=== PATIENT | female | born 1990 | race Caucasian/White ===

== ENCOUNTER 2017-02-08 19:18 | Emergency (ER) | payer OTHER ==
[2017-02-08] MEDS ORDERED: SODIUM CHLORIDE 0.9% 500 ML IV STA (19:22)
--- NOTE | 2017-02-08 19:32 | ED ---
General Adult HPI - General Stated complaint: palpatation/has pacemaker Time Seen by Provider: 02/08/17 19:22 Source: RN notes reviewed, old records reviewed - History of Present Illness Initial comments: This is a 26-year-old female here for evaluation probable arrhythmia. Palpitations heart beating in her chest dizzy. Patient states symptoms have been earlier today similar symptoms she sustained the cause her to get pacemaker in the first place. Patient is tender denies chest pain or shortness of breath since complaint of palpitations have resolved - Related Data Home Medications Medication Instructions Recorded Confirmed Etonogestrel/Ethinyl Estradiol 1 ring VAGINAL Q28D 02/08/17 02/08/17 [Nuvaring Vaginal Ring] LORazepam [Ativan] 0.25 - 0.5 mg PO DAILY PRN 02/08/17 02/08/17 Allergies Allergy/AdvReac Type Severity Reaction Status Date / Time Beta-Blockers AdvReac Dyspnea/Increased Verified 02/08/17 20:20 (Beta-Adrenergic Bloc Heart Rate/Fatigue oxycodone [From Percocet] AdvReac AGITATION Verified 02/08/17 20:19 varenicline [From Chantix] AdvReac AGITATION/A Verified 02/08/17 20:19 GGRESSION Review of Systems ROS Statement: Those systems with pertinent positive or pertinent negative responses have been documented in the HPI. ROS Other: All systems not noted in ROS Statement are negative. Past Medical History Past Medical History: Asthma Additional Past Medical History / Comment(s): Herpes Genitalis. Obstetric history:First was vaginal delivery in 2012. This is her second . She has had care with pr since 11 weeks. A+, abs neg, HIV NR , Hep B neg, RPR NR. She had an US at 28 weeks that showed <3%ile and so she was followed by [facility] for IUGR. BPPs weekly and NSTs twice weekly with frequent growth USs. LAst US showed 15%ile. GBS neg. History of Any Multi-Drug Resistant Organisms: None Reported Past Surgical History: No Surgical Hx Reported Past Anesthesia/Blood Transfusion Reactions: No Reported Reaction Past Psychological History: Anxiety, Bipolar, Depression Smoking Status: Current every day smoker Past Alcohol Use History: None Reported Past Drug Use History: None Reported Additional Drug Use History / Comment(s): pt refused how to quit packet - Past Family History Mother Family Medical History: No Reported History General Exam General appearance: alert, in no apparent distress Head exam: Present: atraumatic, normocephalic, normal inspection Eye exam: Present: normal appearance, PERRL, EOMI. Absent: scleral icterus, conjunctival injection, periorbital swelling ENT exam: Present: normal exam, mucous membranes moist Neck exam: Present: normal inspection. Absent: tenderness, meningismus, lymphadenopathy Respiratory exam: Present: normal lung sounds bilaterally. Absent: respiratory distress, wheezes, rales, rhonchi, stridor Cardiovascular Exam: Present: regular rate, normal rhythm, normal heart sounds. Absent: systolic murmur, diastolic murmur, rubs, gallop, clicks GI/Abdominal exam: Present: soft, normal bowel sounds. Absent: distended, tenderness, guarding, rebound, rigid Extremities exam: Present: normal inspection, full ROM, normal capillary refill. Absent: tenderness, pedal edema, joint swelling, calf tenderness Back exam: Present: normal inspection Neurological exam: Present: alert, oriented X3, CN II-XII intact Psychiatric exam: Present: normal affect, normal mood Skin exam: Present: warm, dry, intact, normal color. Absent: rash Course Vital Signs 02/08/17 02/08/17 19:29 20:26 Temperature 97.5 F L Pulse Rate 85 75 Respiratory 18 18 Rate Blood Pressure 139/69 115/65 O2 Sat by Pulse 100 98 Oximetry - Reevaluation(s) Reevaluation #1: 02/08/17 21:10 [address] with interrogation for [facility], unable is interrogate pacemaker tonight Reevaluation #2: 02/08/17 21:10 Spoke with cardiology, will not see patient here tonight, will make appointment for tomorrow in office Reevaluation #3: 02/08/17 21:10 Patient refusing to stay in hospital at this time EKG Findings - EKG Comments: EKG Findings:: EKG shows normal sinus rhythm rate of 89, GA 124, QRS 72, QTC 411 Medical Decision Making - Medical Decision Making 26 female here for evaluation. Patient refuses stating hospital for evaluation of pacer. Patient will see in follow-up with cardiology in the near future - Lab Data Result diagrams: 02/08/17 19:45 02/08/17 19:45 Lab Results 04/02/08/17 02/08/17 Range/Units 19:45 19:45 19:45 WBC 9.1 (3.8-10.6) k/uL RBC 5.02 (3.80-5.40) m/uL Hgb 15.7 (11.4-16.0) gm/dL Hct 45.1 (34.0-46.0) % MCV 89.9 (80.0-100.0) fL MCH 31.2 (25.0-35.0) pg MCHC 34.8 (31.0-37.0) g/dL RDW 13.2 (11.5-15.5) % Plt Count 220 (150-450) k/uL Neutrophils % 54 % Lymphocytes % 39 % Monocytes % 5 % Eosinophils % 1 % Basophils % 0 % Neutrophils # 4.9 (1.3-7.7) k/uL Lymphocytes # 3.5 (1.0-4.8) k/uL Monocytes # 0.5 (0-1.0) k/uL Eosinophils # 0.1 (0-0.7) k/uL Basophils # 0.0 (0-0.2) k/uL Sodium 144 (137-145) mmol/L Potassium 3.8 (3.5-5.1) mmol/L Chloride 107 (98-107) mmol/L Carbon Dioxide 26 (22-30) mmol/L Anion Gap 11 mmol/L BUN 17 (7-17) mg/dL Creatinine 0.84 (0.52-1.04) mg/dL Est GFR (MDRD) Af Amer >60 (>60 ml/min/1.73 sqM) Est GFR (MDRD) Non-Af >60 (>60 ml/min/1.73 sqM) Glucose 97 (74-99) mg/dL Calcium 9.9 (8.4-10.2) mg/dL Phosphorus 3.6 (2.5-4.5) mg/dL Magnesium 2.1 (1.6-2.3) mg/dL Total Bilirubin 1.6 H (0.2-1.3) mg/dL AST 24 (14-36) U/L ALT 27 (9-52) U/L Alkaline Phosphatase 66 (38-126) U/L Total Creatine Kinase 60 (30-135) U/L CK-MB (CK-2) 0.3 (0.0-2.4) ng/mL CK-MB (CK-2) Rel Index 0.5 Troponin I <0.012 (0.000-0.034) ng/mL Total Protein 8.6 H (6.3-8.2) g/dL Albumin 5.1 H (3.5-5.0) g/dL Urine Color Urine Appearance (Clear) Urine pH (5.0-8.0) Ur Specific [place] (1.001-1.035) Urine Protein (Negative) Urine Glucose (UA) (Negative) Urine Ketones (Negative) Urine Blood (Negative) Urine Nitrite (Negative) Urine Bilirubin (Negative) Urine Urobilinogen (<2.0) mg/dL Ur Leukocyte Esterase (Negative) Urine HCG, Qual (Not Detectd) 02/08/17 02/08/17 Range/Units 19:45 19:45 WBC (3.8-10.6) k/uL RBC (3.80-5.40) m/uL Hgb (11.4-16.0) gm/dL Hct (34.0-46.0) % MCV (80.0-100.0) fL MCH (25.0-35.0) pg MCHC (31.0-37.0) g/dL RDW (11.5-15.5) % Plt Count (150-450) k/uL Neutrophils % % Lymphocytes % % Monocytes % % Eosinophils % % Basophils % % Neutrophils # (1.3-7.7) k/uL Lymphocytes # (1.0-4.8) k/uL Monocytes # (0-1.0) k/uL Eosinophils # (0-0.7) k/uL Basophils # (0-0.2) k/uL Sodium (137-145) mmol/L Potassium (3.5-5.1) mmol/L Chloride (98-107) mmol/L Carbon Dioxide (22-30) mmol/L Anion Gap mmol/L BUN (7-17) mg/dL Creatinine (0.52-1.04) mg/dL Est GFR (MDRD) Af Amer (>60 ml/min/1.73 sqM) Est GFR (MDRD) Non-Af (>60 ml/min/1.73 sqM) Glucose (74-99) mg/dL Calcium (8.4-10.2) mg/dL Phosphorus (2.5-4.5) mg/dL Magnesium (1.6-2.3) mg/dL Total Bilirubin (0.2-1.3) mg/dL AST (14-36) U/L ALT (9-52) U/L Alkaline Phosphatase (38-126) U/L Total Creatine Kinase (30-135) U/L CK-MB (CK-2) (0.0-2.4) ng/mL CK-MB (CK-2) Rel Index Troponin I (0.000-0.034) ng/mL Total Protein (6.3-8.2) g/dL Albumin (3.5-5.0) g/dL Urine Color Yellow Urine Appearance Clear (Clear) Urine pH 7.0 (5.0-8.0) Ur Specific [place] 1.019 (1.001-1.035) Urine Protein Negative (Negative) Urine Glucose (UA) Negative (Negative) Urine Ketones Negative (Negative) Urine Blood Negative (Negative) Urine Nitrite Negative (Negative) Urine Bilirubin Negative (Negative) Urine Urobilinogen 2.0 (<2.0) mg/dL Ur Leukocyte Esterase Negative (Negative) Urine HCG, Qual Not Detected (Not Detectd) Disposition Clinical Impression: Palpitations Disposition: HOME SELF-CARE Condition: Good Instructions: Palpitations (ED) Referrals: Geoff Albert III, MD [Primary Care Provider] - 1-2 days
[2017-02-08 19:34] VITALS: RESP 18
[2017-02-08 19:59] LABS: Basophils % (A) 0 %; CH 31.2; CHCM 34.9; Eosinophils # (A) 0.1 k/uL (0-0.7); Eosinophils % (A) 1 %; HCT 45.1 % (34.0-46.0); HDW 2.69; HGB 15.7 gm/dL (11.4-16.0); Luc # (Auto) 0.16; Luc % (Auto) 2; Lymphocytes # (A) 3.5 k/uL (1.0-4.8); Lymphocytes % (A) 39 %; MCH 31.2 pg (25.0-35.0); MCHC 34.8 g/dL (31.0-37.0); MCV 89.9 fL (80.0-100.0); Mean Platelet Volume 7.7; Monocytes # (A) 0.5 k/uL (0-1.0); Monocytes % (A) 5 %; Neutrophils # (A) 4.9 k/uL (1.3-7.7); Neutrophils % (A) 54 %; RBC 5.02 m/uL (3.80-5.40); RDW 13.2 % (11.5-15.5); WBC 9.1 k/uL (3.8-10.6); WBC (Perox) 9.06
[2017-02-08 20:09] LABS: ALT 27 U/L (9-52); AST 24 U/L (14-36); Alkaline Phosphatase 66 U/L (38-126); Anion Gap 11 mmol/L; Blood Urea Nitrogen 17 mg/dL (7-17); Calcium 9.9 mg/dL (8.4-10.2); Carbon Dioxide 26 mmol/L (22-30); Chloride 107 mmol/L (98-107); Glucose 97 mg/dL (74-99); Magnesium 2.1 mg/dL (1.6-2.3); Non-African American GFR(MDRD) >60 (>60 ml/min/1.73 sqM); Phosphorous 3.6 mg/dL (2.5-4.5); Potassium 3.8 mmol/L (3.5-5.1); Sodium 144 mmol/L (137-145); Total Bilirubin 1.6 mg/dL (0.2-1.3); Total Protein 8.6 g/dL (6.3-8.2)
[2017-02-08 20:11] LABS: Appearance,Urine Clear (Clear); Bilirubin,Urine Negative (Negative); Glucose,Urine (UA) Negative (Negative); Ketones,Urine Negative (Negative); Leukocyte Esterase,Urine Negative (Negative); Nitrite,Urine Negative (Negative); Protein,Urine Negative (Negative); Specific Gravity,Urine 1.019 (1.001-1.035); UA Billing (MACRO vs. MICRO) CHEM
[2017-02-08 20:16] LABS: Creatine Kinase 60 U/L (30-135)
[2017-02-08 20:27] LABS: Creatine Kinase MB 0.3 ng/mL (0.0-2.4); Troponin I <0.012 ng/mL (0.000-0.034)
[2017-02-08 21:27] VITALS: BP 125/81; PULSE 67; TEMP 97.4
== END 2017-02-08 21:25 | disposition home or self-care (01) ==
LOC: EC 19:18
DX: R00.2 Palpitations (principal); R42 Dizziness and giddiness; F17.210 Nicotine dependence, cigarettes, uncomplicated; Z95.0 Presence of cardiac pacemaker; Z79.3 Long term (current) use of hormonal contraceptives; Z88.8 Allergy status to other drugs, medicaments and biological substances
CPT/HCPCS: 36415; 80053; 81003; 81025; 82550; 82553; 83735; 84100; 84484; 85025; 87086; 93005; 99285

== ENCOUNTER → 2017-05-10 | Outpatient (CLI) | payer OTHER ==
--- NOTE | 2017-05-10 10:27 | USB ---
Reason for exam: clinical finding. Indicated problem(s): palpable abnormality and pain in the left breast. Physical Findings: Nurse Summary: x 5 palpable, painful areas, patient and physician felt areas (nurse kp). US Breast BILAT Right breast ultrasound includes all four quadrants, the retroareolar region and axilla. Finding demonstrate no cystic or solid lesion seen. Left breast ultrasound includes all four quadrants, the retroareolar region and axilla. Finding demonstrate no cystic or solid lesion seen. These results were verbally communicated with the patient and result sheet given to the patient on 05/10/17. ASSESSMENT: Negative, BI-RAD 1 RECOMMENDATION: Routine screening mammogram of both breasts at age 42. Manage patient on a clinical basis.
== END | disposition home or self-care (01) ==
LOC: RADUSWWP 09:02
PROVIDERS: ATTEND Family Medicine
DX: N63 Unspecified lump in breast (principal); N64.4 Mastodynia

== ENCOUNTER 2017-11-13 15:11 | Emergency (ER) | payer OTHER ==
[2017-11-13] MEDS ORDERED: SODIUM CHLORIDE 0.9% 1,000 ML IV STA (15:45)
[2017-11-13] MEDS ORDERED: SODIUM CHLORIDE 0.9% 500 ML IV STA ×2 (15:45→16:41)
--- NOTE | 2017-11-13 15:49 | ED ---
Arrhythmia/Palpitations HPI - General Chief Complaint: Arrhythmia/Palpitations Stated Complaint: SOB/high heart rate-sent by Time Seen by Provider: 11/13/17 15:23 Source: patient, RN notes reviewed Mode of arrival: ambulatory Limitations: no limitations - History of Present Illness Initial Comments: This is a 27-year-old female history of asthma pacemaker bipolar disorder with anxiety and is a smoker who states she had the onset of shortness of breath and tachycardia for the past week. It was worse today. He states she's had decreased appetite over last couple days. She also is had a cough for last 2 weeks which is getting better she is certainly azithromycin but only took it for a day or 2 and she had difficulty swallowing the pills. She denies any chest pain she has a cough no phlegm no fevers chills or sweats she does state he has at times pain to her mid back but has not right now. MD Complaint: rapid heart beat - Related Data Home Medications Medication Instructions Recorded Confirmed LORazepam [Ativan] 0.5 mg PO TID PRN 02/08/17 11/13/17 Divalproex [Depakote] 250 mg PO DAILY 11/13/17 11/13/17 Divalproex [Depakote] 500 mg PO HS 11/13/17 11/13/17 Fludrocortisone [Florinef] 0.1 mg PO BID 11/13/17 11/13/17 buPROPion XL [Wellbutrin Xl] 300 mg PO DAILY 11/13/17 11/13/17 Allergies Allergy/AdvReac Type Severity Reaction Status Date / Time Beta-Blockers AdvReac Dyspnea/Increased Verified 11/13/17 16:11 (Beta-Adrenergic Bloc Heart Rate/Fatigue oxycodone [From Percocet] AdvReac AGITATION Verified 11/13/17 16:11 varenicline [From Chantix] AdvReac AGITATION/A Verified 11/13/17 16:11 GGRESSION Review of Systems ROS Statement: Those systems with pertinent positive or pertinent negative responses have been documented in the HPI. ROS Other: All systems not noted in ROS Statement are negative. Past Medical History Past Medical History: Asthma Additional Past Medical History / Comment(s): Herpes Genitalis. Obstetric history:First was vaginal delivery in 2012. This is her second . She has had care with me since 11 weeks. A+, abs neg, HIV NR , Hep B neg, RPR NR. She had an US at 28 weeks that showed <3%ile and so she was followed by [facility] for IUGR. BPPs weekly and NSTs twice weekly with frequent growth USs. LAst US showed 15%ile. GBS neg. History of Any Multi-Drug Resistant Organisms: None Reported Past Surgical History: Pacemaker Past Anesthesia/Blood Transfusion Reactions: No Reported Reaction Past Psychological History: Anxiety, Bipolar, Depression Smoking Status: Current every day smoker Past Alcohol Use History: None Reported Past Drug Use History: None Reported - Past Family History Mother Family Medical History: No Reported History General Exam - General Exam Comments Initial Comments: This is a well-developed well-nourished awake alert oriented 3 female Limitations: no limitations General appearance: alert, anxious Head exam: Present: atraumatic, normocephalic, normal inspection Eye exam: Present: normal appearance, PERRL, EOMI. Absent: scleral icterus, conjunctival injection, periorbital swelling ENT exam: Present: mucous membranes dry Neck exam: Present: normal inspection. Absent: tenderness, meningismus, lymphadenopathy Respiratory exam: Present: normal lung sounds bilaterally. Absent: respiratory distress, wheezes, rales, rhonchi, stridor Cardiovascular Exam: Present: normal rhythm, tachycardia, normal heart sounds. Absent: systolic murmur, diastolic murmur, rubs, gallop, clicks GI/Abdominal exam: Present: soft, normal bowel sounds. Absent: distended, tenderness, guarding, rebound, rigid Extremities exam: Present: normal inspection, full ROM, normal capillary refill. Absent: tenderness, pedal edema, joint swelling, calf tenderness Back exam: Present: normal inspection, full ROM. Absent: tenderness, CVA tenderness (R), CVA tenderness (L), muscle spasm, paraspinal tenderness, vertebral tenderness Neurological exam: Present: alert, oriented X3, CN II-XII intact Psychiatric exam: Present: normal affect, normal mood Skin exam: Present: warm, dry, intact, normal color. Absent: rash Course Vital Signs 11/13/17 11/13/17 15:14 16:54 Temperature 98.9 F Pulse Rate 145 H 107 H Respiratory 22 16 Rate Blood Pressure 162/93 125/68 O2 Sat by Pulse 97 97 Oximetry - Reevaluation(s) Reevaluation #1: 01/23/18 17:01 I did discuss smoking cessation with the patient discussing risks factors associated with smoking and benefits of stopping. This conversation lasted 3.1 minutes total 11/13/17 17:02 EKG Findings - EKG Results: EKG: interpreted by AZIZA, sinus rhythm (Sinus tachycardia rate of 128. Interval 138 QRS duration 82 QT since QTC at 294/429 by atrial enlargement no acute ST-T wave changes) Medical Decision Making - Medical Decision Making Reevaluation patient finds the patient heart rate is improved greatly after IV fluids. Patient is feeling much improved at this time. Lab values are all within reasonably normal limits. Valproic acid level is within therapeutic limits. Discussion with the patient she'll be discharged she is a follow-up with her doctor and return when necessary - Lab Data Result diagrams: 11/13/17 15:48 11/13/17 15:48 Lab Results 11/13/17 11/13/17 11/13/17 Range/Units 15:48 15:48 15:48 WBC 6.4 (3.8-10.6) k/uL RBC 4.92 (3.80-5.40) m/uL Hgb 15.1 (11.4-16.0) gm/dL Hct 43.9 (34.0-46.0) % MCV 89.2 (80.0-100.0) fL MCH 30.6 (25.0-35.0) pg MCHC 34.4 (31.0-37.0) g/dL RDW 12.1 (11.5-15.5) % Plt Count 173 (150-450) k/uL Neutrophils % 51 % Lymphocytes % 41 % Monocytes % 5 % Eosinophils % 0 % Basophils % 0 % Neutrophils # 3.3 (1.3-7.7) k/uL Lymphocytes # 2.6 (1.0-4.8) k/uL Monocytes # 0.3 (0-1.0) k/uL Eosinophils # 0.0 (0-0.7) k/uL Basophils # 0.0 (0-0.2) k/uL PT (9.0-12.0) sec INR (<1.2) APTT (22.0-30.0) sec D-Dimer (<0.60) mg/L FEU Sodium 143 (137-145) mmol/L Potassium 4.3 (3.5-5.1) mmol/L Chloride 108 H (98-107) mmol/L Carbon Dioxide 23 (22-30) mmol/L Anion Gap 12 mmol/L BUN 11 (7-17) mg/dL Creatinine 0.92 (0.52-1.04) mg/dL Est GFR (MDRD) Af Amer >60 (>60 ml/min/1.73 sqM) Est GFR (MDRD) Non-Af >60 (>60 ml/min/1.73 sqM) Glucose 80 (74-99) mg/dL Calcium 9.6 (8.4-10.2) mg/dL Magnesium 2.0 (1.6-2.3) mg/dL Total Bilirubin 0.7 (0.2-1.3) mg/dL AST 20 (14-36) U/L ALT 22 (9-52) U/L Alkaline Phosphatase 59 (38-126) U/L Total Creatine Kinase 58 (30-135) U/L CK-MB (CK-2) <0.2 (0.0-2.4) ng/mL CK-MB (CK-2) Rel Index Troponin I <0.012 (0.000-0.034) ng/mL Total Protein 7.0 (6.3-8.2) g/dL Albumin 4.5 (3.5-5.0) g/dL TSH 0.924 (0.465-4.680) mIU/L Valproic Acid ug/mL 11/13/17 11/13/17 Range/Units 15:48 15:48 WBC (3.8-10.6) k/uL RBC (3.80-5.40) m/uL Hgb (11.4-16.0) gm/dL Hct (34.0-46.0) % MCV (80.0-100.0) fL MCH (25.0-35.0) pg MCHC (31.0-37.0) g/dL RDW (11.5-15.5) % Plt Count (150-450) k/uL Neutrophils % % Lymphocytes % % Monocytes % % Eosinophils % % Basophils % % Neutrophils # (1.3-7.7) k/uL Lymphocytes # (1.0-4.8) k/uL Monocytes # (0-1.0) k/uL Eosinophils # (0-0.7) k/uL Basophils # (0-0.2) k/uL PT 11.8 (9.0-12.0) sec INR 1.2 H (<1.2) APTT 25.7 (22.0-30.0) sec D-Dimer <0.17 (<0.60) mg/L FEU Sodium (137-145) mmol/L Potassium (3.5-5.1) mmol/L Chloride (98-107) mmol/L Carbon Dioxide (22-30) mmol/L Anion Gap mmol/L BUN (7-17) mg/dL Creatinine (0.52-1.04) mg/dL Est GFR (MDRD) Af Amer (>60 ml/min/1.73 sqM) Est GFR (MDRD) Non-Af (>60 ml/min/1.73 sqM) Glucose (74-99) mg/dL Calcium (8.4-10.2) mg/dL Magnesium (1.6-2.3) mg/dL Total Bilirubin (0.2-1.3) mg/dL AST (14-36) U/L ALT (9-52) U/L Alkaline Phosphatase (38-126) U/L Total Creatine Kinase (30-135) U/L CK-MB (CK-2) (0.0-2.4) ng/mL CK-MB (CK-2) Rel Index Troponin I (0.000-0.034) ng/mL Total Protein (6.3-8.2) g/dL Albumin (3.5-5.0) g/dL TSH (0.465-4.680) mIU/L Valproic Acid 66.4 ug/mL - Radiology Data Radiology results: report reviewed (I did review the imaging and report no acute findings.), image reviewed Disposition Clinical Impression: Tachycardia, Dehydration, Dyspnea, Smoking Disposition: HOME SELF-CARE Condition: Good Instructions: Tachycardia (ED), Dehydration (ED), How to Stop Smoking (ED) Referrals: Geoff Albert III, MD [Primary Care Provider] - 1-2 days
[2017-11-13 16:11] LABS: Basophils % (A) 0 %; Eosinophils % (A) 0 %; HCT 43.9 % (34.0-46.0); HGB 15.1 gm/dL (11.4-16.0); Lymphocytes # (A) 2.6 k/uL (1.0-4.8); Lymphocytes % (A) 41 %; MCH 30.6 pg (25.0-35.0); MCHC 34.4 g/dL (31.0-37.0); MCV 89.2 fL (80.0-100.0); Mean Platelet Volume 7.7; Monocytes # (A) 0.3 k/uL (0-1.0); Monocytes % (A) 5 %; Neutrophils # (A) 3.3 k/uL (1.3-7.7); Neutrophils % (A) 51 %; Platelet Count 173 k/uL (150-450); RBC 4.92 m/uL (3.80-5.40); RDW 12.1 % (11.5-15.5); WBC 6.4 k/uL (3.8-10.6)
[2017-11-13 16:14] LABS: ALT 22 U/L (9-52); AST 20 U/L (14-36); Albumin 4.5 g/dL (3.5-5.0); Alkaline Phosphatase 59 U/L (38-126); Anion Gap 12 mmol/L; Blood Urea Nitrogen 11 mg/dL (7-17); Calcium 9.6 mg/dL (8.4-10.2); Carbon Dioxide 23 mmol/L (22-30); Chloride 108 mmol/L (98-107); Glucose 80 mg/dL (74-99); Potassium 4.3 mmol/L (3.5-5.1); Sodium 143 mmol/L (137-145); Total Bilirubin 0.7 mg/dL (0.2-1.3)
[2017-11-13 16:20] LABS: D-Dimer <0.17 mg/L FEU (<0.60); INR 1.2 (<1.2); Partial Thromboplastin Time 25.7 sec (22.0-30.0); Prothrombin Time 11.8 sec (9.0-12.0)
--- NOTE | 2017-11-13 16:33 | XR ---
EXAMINATION TYPE: XR chest 2V DATE OF EXAM: 11/13/2017 COMPARISON: 03/15/2010 HISTORY: Intermittent chest pain. TECHNIQUE: Frontal and lateral views of the chest are obtained. FINDINGS: There is no focal air space opacity, pleural effusion, or pneumothorax seen. The cardiac silhouette size is within normal limits. Dual lead left-sided cardiac device is noted. The osseous s tructures are intact. Pulmonary hyperinflation is seen without other findings of COPD. IMPRESSION: No acute cardiopulmonary process.
[2017-11-13 16:41] LABS: Creatine Kinase 58 U/L (30-135)
[2017-11-13 16:53] LABS: Creatine Kinase MB <0.2 ng/mL (0.0-2.4); Troponin I <0.012 ng/mL (0.000-0.034)
[2017-11-13 16:55] VITALS: RESP 16
[2017-11-13 17:53] VITALS: BP 130/74; PULSE 108; TEMP 97.9
== END 2017-11-13 17:58 | disposition home or self-care (01) ==
LOC: EC 15:11
DX: E86.0 Dehydration (principal); R00.0 Tachycardia, unspecified; R06.00 Dyspnea, unspecified; F17.200 Nicotine dependence, unspecified, uncomplicated; R63.0 Anorexia; J45.909 Unspecified asthma, uncomplicated; Z95.0 Presence of cardiac pacemaker; F32.9 Major depressive disorder, single episode, unspecified; Z79.51 Long term (current) use of inhaled steroids; Z79.899 Other long term (current) drug therapy; Z88.8 Allergy status to other drugs, medicaments and biological substances; Z88.5 Allergy status to narcotic agent
CPT/HCPCS: 36415; 71046; 80053; 80164; 82550; 82553; 83735; 84443; 84484; 85025; 85379; 85610; 85730; 93005; 99285

== ENCOUNTER → 2017-12-04 | Outpatient (CLI) | payer OTHER | END | disposition home or self-care (01) | LOC: CPPFTMAIN 11:53 | PROVIDERS: ATTEND Family Medicine | DX: R06.02 Shortness of breath (principal) | CPT/HCPCS: 94060; 94726; 94729 ==

== ENCOUNTER 2018-04-17 13:22 | Emergency (ER) | payer OTHER ==
[2018-04-17] MEDS ORDERED: LORazepam 2 MG/ML INJ IV STA (15:12)
[2018-04-17] MEDS ORDERED: SODIUM CHLORIDE 0.9% 1,000 ML IV ONE (15:12)
[2018-04-17 15:28] LABS: Appearance,Urine Clear (Clear); Bilirubin,Urine Negative (Negative); Blood,Urine Negative (Negative); Color,Urine Yellow; Glucose,Urine (UA) Negative (Negative); Ketones,Urine 1+ (Negative); Leukocyte Esterase,Urine Negative (Negative); Nitrite,Urine Negative (Negative); Protein,Urine Negative (Negative); Specific Gravity,Urine 1.016 (1.001-1.035); Urobilinogen,Urine <2.0 mg/dL (<2.0)
--- NOTE | 2018-04-17 15:38 | ED ---
Recheck HPI - General Chief Complaint: Recheck/Abnormal Lab/Rx Stated Complaint: Dizzy from medication Time Seen by Provider: 04/17/18 15:00 Source: patient, RN notes reviewed Mode of arrival: wheelchair Limitations: no limitations - History of Present Illness Initial Comments: This is a 27-year-old female presents emergency Department chief complaint concerns of medication reaction. Patient states that she had a Depakote and Wellbutrin increased a few days ago and states that she has not felt well. She' s been irritable, her mood does not feel stable. Patient states she feels shaky and disoriented at times. Patient denies any focal weakness. Denies any nausea vomiting. Patient states that she feels very anxious. She states her Depakote was increased to 250 in the morning and 500 nighttime and her Wellbutrin to 300. Patient denies suicidal or homicidal ideation. - Related Data Home Medications Medication Instructions Recorded Confirmed LORazepam [Ativan] 0.5 - 1 mg PO BID PRN 02/08/17 04/17/18 Divalproex [Depakote] 250 mg PO DAILY 11/13/17 04/17/18 Divalproex [Depakote] 500 mg PO HS 11/13/17 04/17/18 buPROPion XL [Wellbutrin Xl] 300 mg PO DAILY 11/13/17 04/17/18 Albuterol Inhaler [Ventolin Hfa 1 - 2 puff INHALATION RT-Q6H PRN 04/17/18 Inhaler] Montelukast [Singulair] 10 mg PO HS 04/17/18 04/17/18 Allergies Allergy/AdvReac Type Severity Reaction Status Date / Time Beta-Blockers AdvReac Dyspnea/Increased Verified 04/17/18 15:32 (Beta-Adrenergic Bloc Heart Rate/Fatigue oxycodone [From Percocet] AdvReac AGITATION Verified 04/17/18 15:32 varenicline [From Chantix] AdvReac AGITATION/A Verified 04/17/18 15:32 GGRESSION Review of Systems ROS Statement: Those systems with pertinent positive or pertinent negative responses have been documented in the HPI. ROS Other: All systems not noted in ROS Statement are negative. Past Medical History Past Medical History: Asthma Additional Past Medical History / Comment(s): Herpes Genitalis History of Any Multi-Drug Resistant Organisms: None Reported Past Surgical History: Pacemaker Past Anesthesia/Blood Transfusion Reactions: No Reported Reaction Past Psychological History: Anxiety, Bipolar, Depression Smoking Status: Current every day smoker Past Alcohol Use History: None Reported Past Drug Use History: None Reported - Past Family History Mother Family Medical History: No Reported History General Exam Limitations: no limitations General appearance: alert, in no apparent distress, anxious Head exam: Present: atraumatic, normocephalic, normal inspection Eye exam: Present: normal appearance, PERRL, EOMI. Absent: scleral icterus, conjunctival injection, periorbital swelling ENT exam: Present: normal exam, mucous membranes moist Neck exam: Present: normal inspection, full ROM. Absent: tenderness, meningismus, lymphadenopathy Respiratory exam: Present: normal lung sounds bilaterally. Absent: respiratory distress, wheezes, rales, rhonchi, stridor Cardiovascular Exam: Present: normal rhythm, tachycardia, normal heart sounds. Absent: systolic murmur, diastolic murmur, rubs, gallop, clicks GI/Abdominal exam: Present: soft, normal bowel sounds. Absent: distended, tenderness, guarding, rebound, rigid Neurological exam: Present: alert, oriented X3, CN II-XII intact Skin exam: Present: warm, dry, intact, normal color. Absent: rash Course Vital Signs 04/17/18 13:24 Temperature 98.4 F Pulse Rate 119 H Respiratory 18 Rate Blood Pressure 124/88 O2 Sat by Pulse 99 Oximetry Medical Decision Making - Medical Decision Making 27-year-old female presented for medication reaction. Patient had lab work was hydrated given Ativan issues anxious. Patient states she feels improved at this time. Patient's symptoms most likely related to anxiety and to adverse reactions of her medication increased. Patient will follow-up with her primary care physician who increased her meds and return for any worsening symptoms. - Lab Data Result diagrams: 04/17/18 15:24 04/17/18 15:24 Lab Results 04/17/18 04/17/18 04/17/18 Range/Units 15:20 15:20 15:24 WBC 9.3 (3.8-10.6) k/uL RBC 4.91 (3.80-5.40) m/uL Hgb 15.3 (11.4-16.0) gm/dL Hct 44.3 (34.0-46.0) % MCV 90.2 (80.0-100.0) fL MCH 31.2 (25.0-35.0) pg MCHC 34.5 (31.0-37.0) g/dL RDW 13.0 (11.5-15.5) % Plt Count 193 (150-450) k/uL Neutrophils % 63 % Lymphocytes % 30 % Monocytes % 5 % Eosinophils % 1 % Basophils % 0 % Neutrophils # 5.8 (1.3-7.7) k/uL Lymphocytes # 2.8 (1.0-4.8) k/uL Monocytes # 0.5 (0-1.0) k/uL Eosinophils # 0.1 (0-0.7) k/uL Basophils # 0.0 (0-0.2) k/uL Sodium (137-145) mmol/L Potassium (3.5-5.1) mmol/L Chloride (98-107) mmol/L Carbon Dioxide (22-30) mmol/L Anion Gap mmol/L BUN (7-17) mg/dL Creatinine (0.52-1.04) mg/dL Est GFR (CKD-EPI)AfAm (>60 ml/min/1.73 sqM) Est GFR (CKD-EPI)NonAf (>60 ml/min/1.73 sqM) Glucose (74-99) mg/dL Calcium (8.4-10.2) mg/dL Total Bilirubin (0.2-1.3) mg/dL AST (14-36) U/L ALT (9-52) U/L Alkaline Phosphatase (38-126) U/L Total Protein (6.3-8.2) g/dL Albumin (3.5-5.0) g/dL Urine Color Yellow Urine Appearance Clear (Clear) Urine pH 6.0 (5.0-8.0) Ur Specific [place] 1.016 (1.001-1.035) Urine Protein Negative (Negative) Urine Glucose (UA) Negative (Negative) Urine Ketones 1+ H (Negative) Urine Blood Negative (Negative) Urine Nitrite Negative (Negative) Urine Bilirubin Negative (Negative) Urine Urobilinogen <2.0 (<2.0) mg/dL Ur Leukocyte Esterase Negative (Negative) Urine HCG, Qual Not Detected (Not Detectd) Valproic Acid ug/mL 04/17/18 Range/Units 15:24 WBC (3.8-10.6) k/uL RBC (3.80-5.40) m/uL Hgb (11.4-16.0) gm/dL Hct (34.0-46.0) % MCV (80.0-100.0) fL MCH (25.0-35.0) pg MCHC (31.0-37.0) g/dL RDW (11.5-15.5) % Plt Count (150-450) k/uL Neutrophils % % Lymphocytes % % Monocytes % % Eosinophils % % Basophils % % Neutrophils # (1.3-7.7) k/uL Lymphocytes # (1.0-4.8) k/uL Monocytes # (0-1.0) k/uL Eosinophils # (0-0.7) k/uL Basophils # (0-0.2) k/uL Sodium 141 (137-145) mmol/L Potassium 4.4 (3.5-5.1) mmol/L Chloride 106 (98-107) mmol/L Carbon Dioxide 23 (22-30) mmol/L Anion Gap 12 mmol/L BUN 15 (7-17) mg/dL Creatinine 0.90 (0.52-1.04) mg/dL Est GFR (CKD-EPI)AfAm >90 (>60 ml/min/1.73 sqM) Est GFR (CKD-EPI)NonAf 90 (>60 ml/min/1.73 sqM) Glucose 88 (74-99) mg/dL Calcium 9.7 (8.4-10.2) mg/dL Total Bilirubin 0.7 (0.2-1.3) mg/dL AST 16 (14-36) U/L ALT 26 (9-52) U/L Alkaline Phosphatase 62 (38-126) U/L Total Protein 7.3 (6.3-8.2) g/dL Albumin 4.8 (3.5-5.0) g/dL Urine Color Urine Appearance (Clear) Urine pH (5.0-8.0) Ur Specific [place] (1.001-1.035) Urine Protein (Negative) Urine Glucose (UA) (Negative) Urine Ketones (Negative) Urine Blood (Negative) Urine Nitrite (Negative) Urine Bilirubin (Negative) Urine Urobilinogen (<2.0) mg/dL Ur Leukocyte Esterase (Negative) Urine HCG, Qual (Not Detectd) Valproic Acid 68.9 ug/mL Disposition Clinical Impression: Medication reaction Disposition: HOME SELF-CARE Condition: Stable Instructions: Bupropion (By mouth) Additional Instructions: Please return to the Emergency Department if symptoms worsen or any other concerns. Is patient prescribed a controlled substance at d/c from ED?: No Referrals: Geoff Albert III, MD [Primary Care Provider] - 1-2 days Time of Disposition: 16:27
[2018-04-17 15:41] LABS: Basophils % (A) 0 %; Eosinophils # (A) 0.1 k/uL (0-0.7); Eosinophils % (A) 1 %; HCT 44.3 % (34.0-46.0); HGB 15.3 gm/dL (11.4-16.0); Lymphocytes # (A) 2.8 k/uL (1.0-4.8); Lymphocytes % (A) 30 %; MCH 31.2 pg (25.0-35.0); MCHC 34.5 g/dL (31.0-37.0); MCV 90.2 fL (80.0-100.0); Mean Platelet Volume 7.8; Monocytes # (A) 0.5 k/uL (0-1.0); Monocytes % (A) 5 %; Neutrophils # (A) 5.8 k/uL (1.3-7.7); Neutrophils % (A) 63 %; Platelet Count 193 k/uL (150-450); RBC 4.91 m/uL (3.80-5.40); WBC 9.3 k/uL (3.8-10.6)
[2018-04-17 15:48] LABS: ALT 26 U/L (9-52); AST 16 U/L (14-36); Albumin 4.8 g/dL (3.5-5.0); Alkaline Phosphatase 62 U/L (38-126); Anion Gap 12 mmol/L; Blood Urea Nitrogen 15 mg/dL (7-17); Calcium 9.7 mg/dL (8.4-10.2); Carbon Dioxide 23 mmol/L (22-30); Chloride 106 mmol/L (98-107); Glucose 88 mg/dL (74-99); Potassium 4.4 mmol/L (3.5-5.1); Sodium 141 mmol/L (137-145); Total Bilirubin 0.7 mg/dL (0.2-1.3); Total Protein 7.3 g/dL (6.3-8.2)
[2018-04-17 15:54] LABS: Valproic Acid (Depakene) 68.9 ug/mL
[2018-04-17 16:43] VITALS: BP 122/67; PULSE 101; RESP 16; TEMP 98.6
== END 2018-04-17 16:45 | disposition home or self-care (01) ==
LOC: EC 13:22
DX: R00.0 Tachycardia, unspecified (principal); T42.6X5A Adverse effect of other antiepileptic and sedative-hypnotic drugs, initial encounter; J45.909 Unspecified asthma, uncomplicated; F31.9 Bipolar disorder, unspecified; F41.9 Anxiety disorder, unspecified; F17.200 Nicotine dependence, unspecified, uncomplicated; Z79.899 Other long term (current) drug therapy; Z88.5 Allergy status to narcotic agent; Z88.8 Allergy status to other drugs, medicaments and biological substances
CPT/HCPCS: 36415; 80164; 80053; 85025; 81003; 81025; 99284; 96374; 96361; J2060

== ENCOUNTER → 2018-05-07 | Outpatient (CLI) | payer OTHER ==
--- NOTE | 2018-05-08 08:01 | US ---
EXAMINATION TYPE: US transvaginal DATE OF EXAM: 05/07/2018 COMPARISON: NONE CLINICAL HISTORY: N94.10 Unspecified dyspareunia. nausea, pelvic pain, bleeding during intercourse, h/o ovarian cysts TECHNIQUE: TV. Date of LMP: 04/08/2018 EXAM MEASUREMENTS: Uterus: 8.1 x 5.4 x 4.2 cm Endometrial Stripe: 0.5 cm Right Ovary: 4.1 x 3.4 x 2.9 cm Left Ovary: 4.0 x 3.1 x 2.2 cm 1. Uterus: Anteverted wnl 2. Endometrium: wnl 3. Right Ovary: 2.3cm complex lesion seen, possible hemorrhagic cyst 4. Left Ovary: 2.0cm complex lesion seen, possible hemorrhagic cyst 5. Bilateral Adnexa: wnl 6. Posterior cul-de-sac: wnl IMPRESSION: 1. Complex ovarian lesions may reflect hemorrhagic cyst. Correlate clinically and progress studies ar e recommended in 6 weeks.
== END | disposition home or self-care (01) ==
LOC: RADUSMAIN 16:06
PROVIDERS: ATTEND Nurse Practitioner Family
DX: N83.8 Other noninflammatory disorders of ovary, fallopian tube and broad ligament (principal)
CPT/HCPCS: 76830

== ENCOUNTER → 2018-06-26 | Outpatient (CLI) | payer OTHER ==
--- NOTE | 2018-06-26 18:53 | US ---
EXAMINATION TYPE: US transvaginal DATE OF EXAM: 06/26/2018 COMPARISON: NONE CLINICAL HISTORY: N83.292 Lt ovarian Cyst, N83.291 Rt Ovarian Cyst. History of ovarian cysts, dyspare unia TECHNIQUE: Transvaginal (TV) Date of LMP: 06/04/18 EXAM MEASUREMENTS: Uterus: 7.3 x 4.8 x 5.9 cm Endometrial Stripe: 0.4 cm Right Ovary: 4.1 x 2.6 x 2.8 cm Left Ovary: 4.5 x 1.9 x 1.7 cm 1. Uterus: Anteverted wnl 2. Endometrium: wnl 3. Right Ovary: 2 complex areas seen, measuring 1.9 x 1.5 x 1.6cm and 2.3 x 2.0 x 1.9cm 4. Left Ovary: complex area = 2.4 x 1.7 x 1.7cm 5. Bilateral Adnexa: free fluid left adnexa adjacent to left ovary 6. Posterior cul-de-sac: free fluid noted IMPRESSION: Bilateral complex ovarian cysts. Mild free fluid. Normal uterus and endometrium.
== END | disposition home or self-care (01) ==
LOC: RADUSWWP 16:16
PROVIDERS: ATTEND Family Medicine
DX: N83.201 Unspecified ovarian cyst, right side (principal); N83.202 Unspecified ovarian cyst, left side; N93.0 Postcoital and contact bleeding; N94.10 Unspecified dyspareunia
CPT/HCPCS: 76830

== ENCOUNTER 2019-08-25 09:19 | Emergency (ER) | payer OTHER ==
[2019-08-25 09:26] VITALS: BP 123/89; PULSE 81; RESP 17; TEMP 97.6
--- NOTE | 2019-08-25 10:33 | XR ---
EXAMINATION TYPE: XR chest 2V DATE OF EXAM: 08/25/2019 COMPARISON: 11/13/2017 HISTORY: Right-sided neck pain, chest pain, and shoulder pain. TECHNIQUE: Frontal and lateral views of the chest are obtained. FINDINGS: There is no focal air space opacity, pleural effusion, or pneumothorax seen. Dual lead le ft-sided cardiac device is noted. The cardiac silhouette size is within normal limits. The osseous structures are intact. IMPRESSION: No acute cardiopulmonary process.
[2019-08-25 10:36] LABS: Basophils # (A) 0.1 k/uL (0-0.2); Basophils % (A) 1 %; Eosinophils # (A) 0.1 k/uL (0-0.7); Eosinophils % (A) 1 %; HCT 45.7 % (34.0-46.0); HGB 15.4 gm/dL (11.4-16.0); Lymphocytes # (A) 2.8 k/uL (1.0-4.8); Lymphocytes % (A) 26 %; MCH 30.7 pg (25.0-35.0); MCHC 33.7 g/dL (31.0-37.0); Mean Platelet Volume 7.2; Monocytes # (A) 0.6 k/uL (0-1.0); Monocytes % (A) 6 %; Neutrophils # (A) 6.8 k/uL (1.3-7.7); Neutrophils % (A) 65 %; Platelet Count 203 k/uL (150-450); RBC 5.03 m/uL (3.80-5.40); RDW 12.2 % (11.5-15.5); WBC 10.5 k/uL (3.8-10.6)
[2019-08-25 10:47] LABS: ALT 48 U/L (9-52); AST 28 U/L (14-36); African American GFR (CKD) >90 (>60 ml/min/1.73 sqM); Albumin 4.8 g/dL (3.5-5.0); Alkaline Phosphatase 81 U/L (38-126); Anion Gap 9 mmol/L; Blood Urea Nitrogen 15 mg/dL (7-17); Calcium 10.2 mg/dL (8.4-10.2); Carbon Dioxide 26 mmol/L (22-30); Chloride 107 mmol/L (98-107); Glucose 91 mg/dL (74-99); Potassium 4.9 mmol/L (3.5-5.1); Sodium 142 mmol/L (137-145); Total Bilirubin 1.8 mg/dL (0.2-1.3)
--- NOTE | 2019-08-25 10:59 | ED ---
General Adult HPI - General Chief complaint: Recheck/Abnormal Lab/Rx Stated complaint: poss pacemaker issue Time Seen by Provider: 08/25/19 09:58 Source: patient, RN notes reviewed Mode of arrival: ambulatory Limitations: no limitations - History of Present Illness Initial comments: This a 29-year-old female sent emergency Department chief complaint of left upper shoulder, trapezius pain. Patient states started a few days ago and seems to happen with certain movements or positions. Patient also states that she feels pain when she takes a deep inspiration. She does not feel short of breath at rest denies any prior DVT or PE denies any headache, dizziness, neck stiffness, fevers chills. Patient states she's been contemplating on been evaluated for this and states that she went to [facility] and sent here for further evaluation. She does admit that she had a pacemaker placed a few years ago because she had some cardiac pauses. She sees Dr. Preciado she's had no complications she does admit that she's had chronic tachycardia and which she takes medications for. - Related Data Home Medications Medication Instructions Recorded Confirmed LORazepam [Ativan] 0.5 - 1 mg PO BID PRN 02/08/17 08/25/19 Ivabradine HCl [Corlanor] 5 mg PO BID 08/25/19 08/25/19 Allergies Allergy/AdvReac Type Severity Reaction Status Date / Time albuterol AdvReac INCREASED Verified 08/25/19 09:39 HEART RATE Beta-Blockers AdvReac Dyspnea/Increased Verified 08/25/19 09:39 (Beta-Adrenergic Bloc Heart Rate/Fatigue oxycodone [From Percocet] AdvReac AGITATION Verified 08/25/19 09:39 varenicline [From Chantix] AdvReac AGITATION/A Verified 08/25/19 09:39 GGRESSION Review of Systems ROS Statement: Those systems with pertinent positive or pertinent negative responses have been documented in the HPI. ROS Other: All systems not noted in ROS Statement are negative. Past Medical History Past Medical History: Asthma Additional Past Medical History / Comment(s): Herpes Genitalis History of Any Multi-Drug Resistant Organisms: None Reported Past Surgical History: Pacemaker Past Anesthesia/Blood Transfusion Reactions: No Reported Reaction Past Psychological History: Anxiety, Bipolar, Depression Smoking Status: Current every day smoker Past Alcohol Use History: Rare Past Drug Use History: None Reported - Past Family History Mother Family Medical History: No Reported History General Exam Limitations: no limitations General appearance: alert, in no apparent distress Head exam: Present: atraumatic, normocephalic, normal inspection Eye exam: Present: normal appearance, PERRL, EOMI. Absent: scleral icterus, conjunctival injection, periorbital swelling ENT exam: Present: normal exam, normal oropharynx, mucous membranes moist Neck exam: Present: normal inspection, full ROM. Absent: tenderness, meningismus, lymphadenopathy Respiratory exam: Present: normal lung sounds bilaterally. Absent: respiratory distress, wheezes, rales, rhonchi, stridor Cardiovascular Exam: Present: regular rate, normal rhythm, normal heart sounds. Absent: systolic murmur, diastolic murmur, rubs, gallop, clicks Extremities exam: Present: other (For range of motion neurovascular intact upper extremities, tenderness over the left trapezius, left cervical paraspinal region) Course Vital Signs 08/25/19 09:21 Temperature 97.6 F Pulse Rate 81 Respiratory 17 Rate Blood Pressure 123/89 O2 Sat by Pulse 100 Oximetry Medical Decision Making - Medical Decision Making Patient had labs, x-ray with no acute findings. Patient's pains consistent with more trapezius muscle skeletal pain. She was offered pain medication, muscle relaxers patient declines. Patient will follow-up with her PCP and return for any worsening symptoms. - Lab Data Result diagrams: 08/25/19 10:15 08/25/19 10:15 Lab Results 08/25/19 08/25/19 08/25/19 Range/Units 10:15 10:15 10:15 WBC 10.5 (3.8-10.6) k/uL RBC 5.03 (3.80-5.40) m/uL Hgb 15.4 (11.4-16.0) gm/dL Hct 45.7 (34.0-46.0) % MCV 91.0 (80.0-100.0) fL MCH 30.7 (25.0-35.0) pg MCHC 33.7 (31.0-37.0) g/dL RDW 12.2 (11.5-15.5) % Plt Count 203 (150-450) k/uL Neutrophils % 65 % Lymphocytes % 26 % Monocytes % 6 % Eosinophils % 1 % Basophils % 1 % Neutrophils # 6.8 (1.3-7.7) k/uL Lymphocytes # 2.8 (1.0-4.8) k/uL Monocytes # 0.6 (0-1.0) k/uL Eosinophils # 0.1 (0-0.7) k/uL Basophils # 0.1 (0-0.2) k/uL D-Dimer 0.22 (<0.60) mg/L FEU Sodium 142 (137-145) mmol/L Potassium 4.9 (3.5-5.1) mmol/L Chloride 107 (98-107) mmol/L Carbon Dioxide 26 (22-30) mmol/L Anion Gap 9 mmol/L BUN 15 (7-17) mg/dL Creatinine 0.83 (0.52-1.04) mg/dL Est GFR (CKD-EPI)AfAm >90 (>60 ml/min/1.73 sqM) Est GFR (CKD-EPI)NonAf >90 (>60 ml/min/1.73 sqM) Glucose 91 (74-99) mg/dL Calcium 10.2 (8.4-10.2) mg/dL Total Bilirubin 1.8 H (0.2-1.3) mg/dL AST 28 (14-36) U/L ALT 48 (9-52) U/L Alkaline Phosphatase 81 (38-126) U/L Troponin I (0.000-0.034) ng/mL Total Protein 8.0 (6.3-8.2) g/dL Albumin 4.8 (3.5-5.0) g/dL 08/25/19 Range/Units 10:15 WBC (3.8-10.6) k/uL RBC (3.80-5.40) m/uL Hgb (11.4-16.0) gm/dL Hct (34.0-46.0) % MCV (80.0-100.0) fL MCH (25.0-35.0) pg MCHC (31.0-37.0) g/dL RDW (11.5-15.5) % Plt Count (150-450) k/uL Neutrophils % % Lymphocytes % % Monocytes % % Eosinophils % % Basophils % % Neutrophils # (1.3-7.7) k/uL Lymphocytes # (1.0-4.8) k/uL Monocytes # (0-1.0) k/uL Eosinophils # (0-0.7) k/uL Basophils # (0-0.2) k/uL D-Dimer (<0.60) mg/L FEU Sodium (137-145) mmol/L Potassium (3.5-5.1) mmol/L Chloride (98-107) mmol/L Carbon Dioxide (22-30) mmol/L Anion Gap mmol/L BUN (7-17) mg/dL Creatinine (0.52-1.04) mg/dL Est GFR (CKD-EPI)AfAm (>60 ml/min/1.73 sqM) Est GFR (CKD-EPI)NonAf (>60 ml/min/1.73 sqM) Glucose (74-99) mg/dL Calcium (8.4-10.2) mg/dL Total Bilirubin (0.2-1.3) mg/dL AST (14-36) U/L ALT (9-52) U/L Alkaline Phosphatase (38-126) U/L Troponin I <0.012 (0.000-0.034) ng/mL Total Protein (6.3-8.2) g/dL Albumin (3.5-5.0) g/dL Disposition Clinical Impression: Musculoskeletal disorder involving upper trapezius muscle Disposition: HOME SELF-CARE Condition: Stable Instructions (If sedation given, give patient instructions): Musculoskeletal Pain (ED) Additional Instructions: Please return to the Emergency Department if symptoms worsen or any other concerns. Is patient prescribed a controlled substance at d/c from ED?: No Referrals: Geoff Albert III, MD [Primary Care Provider] - 1-2 days Time of Disposition: 11:26
== END 2019-08-25 11:31 | disposition home or self-care (01) ==
LOC: EC 09:19
DX: M53.82 Other specified dorsopathies, cervical region (principal); F41.9 Anxiety disorder, unspecified; F31.9 Bipolar disorder, unspecified; F17.200 Nicotine dependence, unspecified, uncomplicated; Z79.899 Other long term (current) drug therapy; Z88.5 Allergy status to narcotic agent; Z88.8 Allergy status to other drugs, medicaments and biological substances; Z95.0 Presence of cardiac pacemaker
CPT/HCPCS: 36415; 71046; 80053; 84484; 85025; 85379; 99283

== ENCOUNTER 2020-10-05 11:17 | Emergency (ER) | payer OTHER ==
[2020-10-05 11:23] VITALS: RESP 18; TEMP 98.9
[2020-10-05] MEDS ORDERED: SODIUM CHLORIDE 0.9% 1,000 ML IV STA (11:26)
[2020-10-05] MEDS ORDERED: LORazepam 2 MG/ML INJ IV STA (11:40)
--- NOTE | 2020-10-05 11:44 | ED ---
General Adult HPI - General Chief complaint: Chest Pain Stated complaint: SOB Time Seen by Provider: 10/05/20 11:24 Source: patient Mode of arrival: ambulatory Limitations: no limitations - History of Present Illness Initial comments: Dictation was produced using [employer] dictation software. please excuse any grammatical, word or spelling errors. This patient was cared for during a federal and state declared state of emergency secondary to Covid 19 Chief Complaint: 30-year-old female with past medical history of cardiomyopathy presents with anxiety History of Present Illness: 30-year-old female she presents today with anxiety. Patient states she's been under a lot of stress recently because she is trying to leave her boyfriend of 8 years she has 2 kids with. Patient has history of cardiac disease. She has history of pacemaker. She was told that she required this pacemaker because her heart stop on a Holter monitor multiple occasions. Pacemaker was placed 4-5 years ago. Patient states she does have some mild chest pressure. Denies any radiation of symptoms to her arms, jaw. She does have palpitations. She states that she gets episodes that would last for several minutes were feeling being out of his chest. The ROS documented in this emergency department record has been reviewed and confirmed by me. Those systems with pertinent positive or negative responses have been documented in the HPI. All other systems are other negative and/or noncontributory. PHYSICAL EXAM: General Impression: Alert and oriented x3, not in acute distress HEENT: Normocephalic atraumatic, extra-ocular movements intact, pupils equal and reactive to light bilaterally, mucous membranes moist. Cardiovascular: Heart regular rate and rhythm Chest: Able to complete full sentences, no retractions, no tachypnea Abdomen: abdomen soft, non-tender, non-distended, no organomegaly Musculoskeletal: Pulses present and equal in all extremities, no peripheral edema Motor: no focal deficits noted Neurological: CN II-XII grossly intact, no focal motor or sensory deficits noted Skin: Intact with no visualized rashes Psych: Crying, tearful ED course: 30 Year old female presents to the emergency department for palpitations, chest pain and anxiety. Vital signs upon arrival shows heart rate of 120 was signs within acceptable limits. Laboratory evaluation obtained. CBC, coag panel, d-dimer, metabolic panel is negative. Urine hCG is negative. Control her status is negative. Patient evaluated after administration of anxiolytic with significant improvement of symptoms. Patient's clinical presentation consistent with anxiety reaction. Patient be discharged with follow-up with her primary care physician. EKG interpretation: Ventricular rate 97, normal sinus rhythm, IN interval 24, QRS 72, QTc 541. No IN prolongation. QT is prolonged. This EKG interpretation of the QTc is questionable. Repeat EKG shows normalization of the QT with a QTC of 417. - Related Data Home Medications Medication Instructions Recorded Confirmed LORazepam [Ativan] 0.5 mg PO BID PRN 02/08/17 10/05/20 Ivabradine HCl [Corlanor] 5 mg PO BID 08/25/19 10/05/20 Allergies Allergy/AdvReac Type Severity Reaction Status Date / Time albuterol AdvReac INCREASED Verified 10/05/20 12:10 HEART RATE Beta-Blockers AdvReac Dyspnea/Increased Verified 10/05/20 12:10 (Beta-Adrenergic Bloc Heart Rate/Fatigue oxycodone [From Percocet] AdvReac AGITATION Verified 10/05/20 12:10 varenicline [From Chantix] AdvReac AGITATION/A Verified 10/05/20 12:10 GGRESSION Review of Systems ROS Statement: Those systems with pertinent positive or pertinent negative responses have been documented in the HPI. ROS Other: All systems not noted in ROS Statement are negative. Past Medical History Past Medical History: Asthma Additional Past Medical History / Comment(s): Herpes Genitalis History of Any Multi-Drug Resistant Organisms: None Reported Past Surgical History: Pacemaker Additional Past Surgical History / Comment(s): tachycardia Past Anesthesia/Blood Transfusion Reactions: No Reported Reaction Past Psychological History: Anxiety, Bipolar, Depression Smoking Status: Current every day smoker Past Alcohol Use History: Occasional Past Drug Use History: Marijuana - Past Family History Mother Family Medical History: No Reported History General Exam Limitations: no limitations Course Vital Signs 10/05/20 11:20 Temperature 98.9 F Pulse Rate 120 H Respiratory 18 Rate Blood Pressure 123/71 O2 Sat by Pulse 96 Oximetry Medical Decision Making - Lab Data Result diagrams: 10/05/20 11:39 10/05/20 11:39 Lab Results 10/05/20 10/05/20 10/05/20 Range/Units 11:39 11:39 11:39 WBC 13.4 H (3.8-10.6) k/uL RBC 5.12 (3.80-5.40) m/uL Hgb 16.3 H (11.4-16.0) gm/dL Hct 47.1 H (34.0-46.0) % MCV 92.0 (80.0-100.0) fL MCH 31.8 (25.0-35.0) pg MCHC 34.5 (31.0-37.0) g/dL RDW 12.4 (11.5-15.5) % Plt Count 218 (150-450) k/uL MPV 8.0 Neutrophils % 79 % Lymphocytes % 17 % Monocytes % 2 % Eosinophils % 0 % Basophils % 0 % Neutrophils # 10.6 H (1.3-7.7) k/uL Lymphocytes # 2.2 (1.0-4.8) k/uL Monocytes # 0.3 (0-1.0) k/uL Eosinophils # 0.1 (0-0.7) k/uL Basophils # 0.0 (0-0.2) k/uL PT 10.8 (9.0-12.0) sec INR 1.0 (<1.2) APTT 24.2 (22.0-30.0) sec D-Dimer 0.23 (<0.60) mg/L FEU Sodium 140 (137-145) mmol/L Potassium 4.7 (3.5-5.1) mmol/L Chloride 107 (98-107) mmol/L Carbon Dioxide 24 (22-30) mmol/L Anion Gap 9 mmol/L BUN 15 (7-17) mg/dL Creatinine 0.75 (0.52-1.04) mg/dL Est GFR (CKD-EPI)AfAm >90 (>60 ml/min/1.73 sqM) Est GFR (CKD-EPI)NonAf >90 (>60 ml/min/1.73 sqM) Glucose 84 (74-99) mg/dL Calcium 10.0 (8.4-10.2) mg/dL Magnesium 1.9 (1.6-2.3) mg/dL Total Bilirubin 1.7 H (0.2-1.3) mg/dL AST 25 (14-36) U/L ALT 20 (4-34) U/L Alkaline Phosphatase 82 (38-126) U/L Troponin I (0.000-0.034) ng/mL Total Protein 8.0 (6.3-8.2) g/dL Albumin 5.0 (3.5-5.0) g/dL Urine HCG, Qual (Not Detectd) Coronavirus (PCR) (Not Detectd) 10/05/20 10/05/20 10/05/20 Range/Units 11:39 11:39 11:39 WBC (3.8-10.6) k/uL RBC (3.80-5.40) m/uL Hgb (11.4-16.0) gm/dL Hct (34.0-46.0) % MCV (80.0-100.0) fL MCH (25.0-35.0) pg MCHC (31.0-37.0) g/dL RDW (11.5-15.5) % Plt Count (150-450) k/uL MPV Neutrophils % % Lymphocytes % % Monocytes % % Eosinophils % % Basophils % % Neutrophils # (1.3-7.7) k/uL Lymphocytes # (1.0-4.8) k/uL Monocytes # (0-1.0) k/uL Eosinophils # (0-0.7) k/uL Basophils # (0-0.2) k/uL PT (9.0-12.0) sec INR (<1.2) APTT (22.0-30.0) sec D-Dimer (<0.60) mg/L FEU Sodium (137-145) mmol/L Potassium (3.5-5.1) mmol/L Chloride (98-107) mmol/L Carbon Dioxide (22-30) mmol/L Anion Gap mmol/L BUN (7-17) mg/dL Creatinine (0.52-1.04) mg/dL Est GFR (CKD-EPI)AfAm (>60 ml/min/1.73 sqM) Est GFR (CKD-EPI)NonAf (>60 ml/min/1.73 sqM) Glucose (74-99) mg/dL Calcium (8.4-10.2) mg/dL Magnesium (1.6-2.3) mg/dL Total Bilirubin (0.2-1.3) mg/dL AST (14-36) U/L ALT (4-34) U/L Alkaline Phosphatase (38-126) U/L Troponin I <0.012 (0.000-0.034) ng/mL Total Protein (6.3-8.2) g/dL Albumin (3.5-5.0) g/dL Urine HCG, Qual Not Detected (Not Detectd) Coronavirus (PCR) Not Detected (Not Detectd) Disposition Clinical Impression: Anxiety reaction Disposition: HOME SELF-CARE Instructions (If sedation given, give patient instructions): Chest Pain (ED) Is patient prescribed a controlled substance at d/c from ED?: No Referrals: Geoff Albert III, MD [Primary Care Provider] - 1-2 days Time of Disposition: 13:15
[2020-10-05 12:07] LABS: Basophils % (A) 0 %; Eosinophils # (A) 0.1 k/uL (0-0.7); Eosinophils % (A) 0 %; HCT 47.1 % (34.0-46.0); HGB 16.3 gm/dL (11.4-16.0); Lymphocytes # (A) 2.2 k/uL (1.0-4.8); Lymphocytes % (A) 17 %; MCH 31.8 pg (25.0-35.0); MCHC 34.5 g/dL (31.0-37.0); Monocytes # (A) 0.3 k/uL (0-1.0); Monocytes % (A) 2 %; Neutrophils # (A) 10.6 k/uL (1.3-7.7); Neutrophils % (A) 79 %; Platelet Count 218 k/uL (150-450); RBC 5.12 m/uL (3.80-5.40); RDW 12.4 % (11.5-15.5); WBC 13.4 k/uL (3.8-10.6)
[2020-10-05 12:23] LABS: ALT 20 U/L (4-34); AST 25 U/L (14-36); African American GFR (CKD) >90 (>60 ml/min/1.73 sqM); Alkaline Phosphatase 82 U/L (38-126); Anion Gap 9 mmol/L; Blood Urea Nitrogen 15 mg/dL (7-17); Carbon Dioxide 24 mmol/L (22-30); Chloride 107 mmol/L (98-107); Glucose 84 mg/dL (74-99); Magnesium 1.9 mg/dL (1.6-2.3); Non-African American GFR(CKD) >90 (>60 ml/min/1.73 sqM); Potassium 4.7 mmol/L (3.5-5.1); Sodium 140 mmol/L (137-145); Total Bilirubin 1.7 mg/dL (0.2-1.3)
[2020-10-05 12:25] LABS: D-Dimer 0.23 mg/L FEU (<0.60); Partial Thromboplastin Time 24.2 sec (22.0-30.0); Prothrombin Time 10.8 sec (9.0-12.0)
--- NOTE | 2020-10-05 13:03 | XR ---
EXAMINATION TYPE: XR chest 1V portable DATE OF EXAM: 10/05/2020 COMPARISON: 08/25/2019 INDICATION: Chest pain TECHNIQUE: Single frontal view of the chest is obtained. FINDINGS: The heart size is normal. The pulmonary vasculature is normal. The lungs are clear. Nipple shadows are evident bilaterally. Pacemaker overlies left chest. IMPRESSION: 1. No acute pulmonary process.
[2020-10-05 13:23] VITALS: BP 116/78; PULSE 92
== END 2020-10-05 13:39 | disposition home or self-care (01) ==
LOC: EC 11:17
DX: F41.1 Generalized anxiety disorder (principal); F41.9 Anxiety disorder, unspecified; F31.9 Bipolar disorder, unspecified; F17.200 Nicotine dependence, unspecified, uncomplicated; Z88.5 Allergy status to narcotic agent; Z88.8 Allergy status to other drugs, medicaments and biological substances; Z20.828 Contact with and (suspected) exposure to other viral communicable diseases; Z95.0 Presence of cardiac pacemaker
CPT/HCPCS: 36415; 93005; 85379; 80053; 83735; 84484; 85025; 85610; 85730; 81025; 87635; 71045; 99285; 96374; 96361; J2060

== ENCOUNTER 2021-06-20 02:29 | Emergency (ER) | payer OTHER ==
[2021-06-20 02:35] VITALS: BP 137/84; PULSE 67; RESP 20; TEMP 98
--- NOTE | 2021-06-20 02:54 | ED ---
Female Urogenital HPI - General Chief complaint: Urogenital Stated complaint: Urogenital Time Seen by Provider: 06/20/21 02:40 Source: patient Mode of arrival: ambulatory Limitations: no limitations - History of Present Illness Complaint: dysuria Onset/Timin -: days(s) Location: suprapubic Radiation: non-radiating Severity: mild Quality: burning Consistency: constant Improves with: urination Worsens with: none Last Menstrual Period: 06/19/21 Patient : No Associated Symptoms: dysuria - Related Data Home Medications Medication Instructions Recorded Confirmed LORazepam [Ativan] 0.5 mg PO BID PRN 02/08/17 10/05/20 Ivabradine HCl [Corlanor] 5 mg PO BID 08/25/19 10/05/20 Previous Rx's Medication Instructions Recorded Nitrofurantoin Monohyd/M-Cryst 100 mg PO Q12HR #6 cap 06/20/21 [Macrobid] Allergies Allergy/AdvReac Type Severity Reaction Status Date / Time albuterol AdvReac INCREASED Verified 06/20/21 02:35 HEART RATE Beta-Blockers AdvReac Dyspnea/Increased Verified 06/20/21 02:35 (Beta-Adrenergic Bloc Heart Rate/Fatigue oxycodone [From Percocet] AdvReac AGITATION Verified 06/20/21 02:35 varenicline [From Chantix] AdvReac AGITATION/A Verified 06/20/21 02:35 GGRESSION Review of Systems ROS Statement: Those systems with pertinent positive or pertinent negative responses have been documented in the HPI. ROS Other: All systems not noted in ROS Statement are negative. Constitutional: Denies: fever, chills Respiratory: Denies: cough, dyspnea Cardiovascular: Denies: chest pain, palpitations Gastrointestinal: Denies: abdominal pain, nausea, vomiting Genitourinary: Reports: dysuria, frequency. Denies: hematuria, discharge Musculoskeletal: Denies: back pain Skin: Denies: rash Past Medical History Past Medical History: Asthma Additional Past Medical History / Comment(s): Herpes Genitalis, kidney stones History of Any Multi-Drug Resistant Organisms: None Reported Past Surgical History: Pacemaker Additional Past Surgical History / Comment(s): tachycardia Past Anesthesia/Blood Transfusion Reactions: No Reported Reaction Past Psychological History: Anxiety, Bipolar, Depression Smoking Status: Current every day smoker Past Alcohol Use History: Occasional Past Drug Use History: Marijuana - Past Family History Mother Family Medical History: No Reported History General Exam Limitations: no limitations General appearance: alert, in no apparent distress Head exam: Present: atraumatic, normocephalic Eye exam: Present: normal appearance Respiratory exam: Present: normal lung sounds bilaterally. Absent: respiratory distress, wheezes, rales, rhonchi, stridor Cardiovascular Exam: Present: regular rate, normal rhythm, normal heart sounds. Absent: systolic murmur, diastolic murmur, rubs, gallop GI/Abdominal exam: Present: soft. Absent: distended, tenderness, guarding, rebound, rigid, mass Extremities exam: Present: normal inspection, normal capillary refill. Absent: pedal edema, calf tenderness Back exam: Present: normal inspection. Absent: CVA tenderness (R), CVA tenderness (L) Neurological exam: Present: alert Skin exam: Present: warm, dry, intact, normal color. Absent: rash Course Vital Signs 06/20/21 02:31 Temperature 98 F Pulse Rate 67 Respiratory 20 Rate Blood Pressure 137/84 O2 Sat by Pulse 100 Oximetry Medical Decision Making - Lab Data Lab Results 06/20/21 06/20/21 Range/Units 02:50 02:50 Urine Color Light Yellow Urine Appearance Clear (Clear) Urine pH 6.0 (5.0-8.0) Ur Specific [place] 1.005 (1.001-1.035) Urine Protein Negative (Negative) Urine Glucose (UA) Negative (Negative) Urine Ketones Negative (Negative) Urine Blood Negative (Negative) Urine Nitrite Negative (Negative) Urine Bilirubin Negative (Negative) Urine Urobilinogen <2.0 (<2.0) mg/dL Ur Leukocyte Esterase Trace H (Negative) Urine RBC <1 (0-5) /hpf Urine WBC 4 (0-5) /hpf Ur Squamous Epith Cells 1 (0-4) /hpf Urine Bacteria Rare H (None) /hpf Urine HCG, Qual Not Detected (Not Detectd) Disposition Clinical Impression: Dysuria Disposition: HOME SELF-CARE Condition: Good Instructions (If sedation given, give patient instructions): Dysuria (ED) Prescriptions: Nitrofurantoin Monohyd/M-Cryst [Macrobid] 100 mg PO Q12HR #6 cap Is patient prescribed a controlled substance at d/c from ED?: No Referrals: Geoff Albert III, MD [Primary Care Provider] - 1-2 days
[2021-06-20 02:59] LABS: Appearance,Urine Clear (Clear); Bacteria,Urine Rare /hpf; Bilirubin,Urine Negative (Negative); Blood,Urine Negative (Negative); Color,Urine Light Yellow; Glucose,Urine (UA) Negative (Negative); Ketones,Urine Negative (Negative); Leukocyte Esterase,Urine Trace (Negative); Nitrite,Urine Negative (Negative); Protein,Urine Negative (Negative); RBC,Urine <1 /hpf (0-5); Specific Gravity,Urine 1.005 (1.001-1.035); Squamous Epithelial Cell,Urine 1 /hpf (0-4); Urobilinogen,Urine <2.0 mg/dL (<2.0); WBC,Urine 4 /hpf (0-5)
== END 2021-06-20 03:45 | disposition home or self-care (01) ==
LOC: EC 02:29
DX: R30.0 Dysuria (principal); J45.909 Unspecified asthma, uncomplicated; F31.9 Bipolar disorder, unspecified; F41.9 Anxiety disorder, unspecified; F17.200 Nicotine dependence, unspecified, uncomplicated; F12.90 Cannabis use, unspecified, uncomplicated; Z79.899 Other long term (current) drug therapy
CPT/HCPCS: 81001; 81025; 99283

== ENCOUNTER 2021-06-21 07:56 | Emergency (ER) | payer OTHER ==
[2021-06-21 08:01] VITALS: RESP 18; TEMP 98.2
[2021-06-21] MEDS ORDERED: SODIUM CHLORIDE 0.9% 1,000 ML IV STA ×2 (08:02→08:30)
--- NOTE | 2021-06-21 08:36 | ED ---
General Adult HPI - General Chief complaint: Urogenital Stated complaint: kidney stones Time Seen by Provider: 06/21/21 08:02 Source: patient, RN notes reviewed Mode of arrival: ambulatory Limitations: no limitations - History of Present Illness Initial comments: 30-year-old female with a past medical history of asthma, kidney stones presents to the emergency room for left flank pain. Patient states she has had left flank pain on and off for the past 2 days. States it radiates into her abdomen. Patient has a sensation of feeling anxious to urinate frequently. Patient denies fevers or chills. Denies nausea vomiting. Patient has had kidney stones in the past and states this feels exactly the same. Patient has no other complaints at this time including shortness of breath, chest pain, abdominal pain, nausea or vomiting, headache, or visual changes. - Related Data Home Medications Medication Instructions Recorded Confirmed LORazepam [Ativan] 0.5 mg PO BID PRN 02/08/17 06/21/21 Ivabradine HCl [Corlanor] 5 mg PO BID 08/25/19 06/21/21 Ibuprofen [Motrin Ib] 600 mg PO Q8H PRN 06/21/21 06/21/21 Previous Rx's Medication Instructions Recorded Ibuprofen [Motrin] 600 mg PO Q8HR PRN #20 tab 06/21/21 Ondansetron [Zofran ODT] 4 mg PO Q8HR PRN #15 tab 06/21/21 Tamsulosin [Flomax] 0.4 mg PO DAILY #20 cap 06/21/21 Allergies Allergy/AdvReac Type Severity Reaction Status Date / Time albuterol AdvReac INCREASED Verified 06/21/21 09:02 HEART RATE Beta-Blockers AdvReac Dyspnea/Increased Verified 06/21/21 09:02 (Beta-Adrenergic Bloc Heart Rate/Fatigue oxycodone [From Percocet] AdvReac AGITATION Verified 06/21/21 09:02 varenicline [From Chantix] AdvReac AGITATION/A Verified 06/21/21 09:02 GGRESSION Review of Systems ROS Statement: Those systems with pertinent positive or pertinent negative responses have been documented in the HPI. ROS Other: All systems not noted in ROS Statement are negative. Past Medical History Past Medical History: Asthma Additional Past Medical History / Comment(s): Herpes Genitalis, kidney stones History of Any Multi-Drug Resistant Organisms: None Reported Past Surgical History: Pacemaker Additional Past Surgical History / Comment(s): tachycardia Past Anesthesia/Blood Transfusion Reactions: No Reported Reaction Past Psychological History: Anxiety, Bipolar, Depression Smoking Status: Current every day smoker Past Alcohol Use History: Occasional Past Drug Use History: Marijuana - Past Family History Mother Family Medical History: No Reported History General Exam Limitations: no limitations General appearance: alert, in no apparent distress Head exam: Present: atraumatic Eye exam: Present: normal appearance, PERRL, EOMI. Absent: scleral icterus, conjunctival injection ENT exam: Present: normal exam, mucous membranes moist Neck exam: Present: normal inspection, full ROM. Absent: tenderness Respiratory exam: Present: normal lung sounds bilaterally. Absent: respiratory distress, wheezes Cardiovascular Exam: Present: regular rate, normal rhythm, normal heart sounds GI/Abdominal exam: Present: soft, normal bowel sounds. Absent: distended, tenderness Back exam: Absent: CVA tenderness (R), CVA tenderness (L) Course Vital Signs 06/21/21 06/21/21 06/21/21 07:57 08:01 09:01 Temperature 98.2 F Pulse Rate 84 Respiratory 18 18 18 Rate Blood Pressure 132/84 O2 Sat by Pulse 99 Oximetry 06/21/21 06/21/21 10:00 11:00 Temperature Pulse Rate 81 Respiratory 18 18 Rate Blood Pressure 124/84 O2 Sat by Pulse 99 Oximetry Medical Decision Making - Medical Decision Making Vitals are stable. CBC is unremarkable. CMP does show dehydration, patient was given fluids. Urinalysis shows blood which is likely related to the kidney stone on cat scan measuring 3 mm. Patient given pain medication here in the ER. She'll be discharged home with pain medicine Zofran and Flomax. She will follow up with urology. She will return here for any worsening symptoms. - Lab Data Result diagrams: 06/21/21 09:16 06/21/21 09:11 Lab Results 06/21/21 06/21/21 06/21/21 Range/Units 09:03 09:03 09:11 WBC (3.8-10.6) k/uL RBC (3.80-5.40) m/uL Hgb (11.4-16.0) gm/dL Hct (34.0-46.0) % MCV (80.0-100.0) fL MCH (25.0-35.0) pg MCHC (31.0-37.0) g/dL RDW (11.5-15.5) % Plt Count (150-450) k/uL MPV Neutrophils % % Lymphocytes % % Monocytes % % Eosinophils % % Basophils % % Neutrophils # (1.3-7.7) k/uL Lymphocytes # (1.0-4.8) k/uL Monocytes # (0-1.0) k/uL Eosinophils # (0-0.7) k/uL Basophils # (0-0.2) k/uL Sodium 137 (137-145) mmol/L Potassium 4.5 (3.5-5.1) mmol/L Chloride 108 H (98-107) mmol/L Carbon Dioxide 21 L (22-30) mmol/L Anion Gap 8 mmol/L BUN 18 H (7-17) mg/dL Creatinine 0.92 (0.52-1.04) mg/dL Est GFR (CKD-EPI)AfAm >90 (>60 ml/min/1.73 sqM) Est GFR (CKD-EPI)NonAf 85 (>60 ml/min/1.73 sqM) Glucose 100 H (74-99) mg/dL Calcium 9.7 (8.4-10.2) mg/dL Urine Color Yellow Urine Appearance Clear (Clear) Urine pH 5.5 (5.0-8.0) Ur Specific [place] 1.017 (1.001-1.035) Urine Protein Negative (Negative) Urine Glucose (UA) Negative (Negative) Urine Ketones Negative (Negative) Urine Blood Moderate H (Negative) Urine Nitrite Negative (Negative) Urine Bilirubin Negative (Negative) Urine Urobilinogen <2.0 (<2.0) mg/dL Ur Leukocyte Esterase Small H (Negative) Urine RBC 43 H (0-5) /hpf Urine WBC 5 (0-5) /hpf Ur Squamous Epith Cells 2 (0-4) /hpf Urine Mucus Rare H (None) /hpf Urine HCG, Qual Not Detected (Not Detectd) 06/21/21 Range/Units 09:16 WBC 11.7 H (3.8-10.6) k/uL RBC 4.26 (3.80-5.40) m/uL Hgb 14.6 (11.4-16.0) gm/dL Hct 41.7 (34.0-46.0) % MCV 97.9 (80.0-100.0) fL MCH 34.3 (25.0-35.0) pg MCHC 35.0 (31.0-37.0) g/dL RDW 13.5 (11.5-15.5) % Plt Count 219 (150-450) k/uL MPV 8.0 Neutrophils % 77 % Lymphocytes % 15 % Monocytes % 5 % Eosinophils % 1 % Basophils % 0 % Neutrophils # 9.0 H (1.3-7.7) k/uL Lymphocytes # 1.8 (1.0-4.8) k/uL Monocytes # 0.5 (0-1.0) k/uL Eosinophils # 0.1 (0-0.7) k/uL Basophils # 0.0 (0-0.2) k/uL Sodium (137-145) mmol/L Potassium (3.5-5.1) mmol/L Chloride (98-107) mmol/L Carbon Dioxide (22-30) mmol/L Anion Gap mmol/L BUN (7-17) mg/dL Creatinine (0.52-1.04) mg/dL Est GFR (CKD-EPI)AfAm (>60 ml/min/1.73 sqM) Est GFR (CKD-EPI)NonAf (>60 ml/min/1.73 sqM) Glucose (74-99) mg/dL Calcium (8.4-10.2) mg/dL Urine Color Urine Appearance (Clear) Urine pH (5.0-8.0) Ur Specific [place] (1.001-1.035) Urine Protein (Negative) Urine Glucose (UA) (Negative) Urine Ketones (Negative) Urine Blood (Negative) Urine Nitrite (Negative) Urine Bilirubin (Negative) Urine Urobilinogen (<2.0) mg/dL Ur Leukocyte Esterase (Negative) Urine RBC (0-5) /hpf Urine WBC (0-5) /hpf Ur Squamous Epith Cells (0-4) /hpf Urine Mucus (None) /hpf Urine HCG, Qual (Not Detectd) Disposition Clinical Impression: Kidney stone Disposition: HOME SELF-CARE Condition: Good Instructions (If sedation given, give patient instructions): Kidney Stones (ED) Additional Instructions: Take medications as directed. Drink plenty of fluids. Follow-up with urology. Return to the emergency room for any worsening symptoms. Prescriptions: Tamsulosin [Flomax] 0.4 mg PO DAILY #20 cap Ibuprofen [Motrin] 600 mg PO Q8HR PRN #20 tab PRN Reason: Pain Ondansetron [Zofran ODT] 4 mg PO Q8HR PRN #15 tab PRN Reason: Nausea Is patient prescribed a controlled substance at d/c from ED?: No Referrals: Geoff Albert III, MD [Primary Care Provider] - 1-2 days Edilberto Preciado MD [STAFF PHYSICIAN] - 1-2 days Time of Disposition: 11:07
[2021-06-21 09:09] LABS: Appearance,Urine Clear (Clear); Bilirubin,Urine Negative (Negative); Blood,Urine Moderate (Negative); Color,Urine Yellow; Glucose,Urine (UA) Negative (Negative); Ketones,Urine Negative (Negative); Leukocyte Esterase,Urine Small (Negative); Mucus,Urine Rare /hpf; Nitrite,Urine Negative (Negative); PH, Urine 5.5 (5.0-8.0); Protein,Urine Negative (Negative); RBC,Urine 43 /hpf (0-5); Specific Gravity,Urine 1.017 (1.001-1.035); Squamous Epithelial Cell,Urine 2 /hpf (0-4); Urobilinogen,Urine <2.0 mg/dL (<2.0); WBC,Urine 5 /hpf (0-5)
[2021-06-21 09:22] LABS: Basophils % (A) 0 %; Eosinophils # (A) 0.1 k/uL (0-0.7); Eosinophils % (A) 1 %; HCT 41.7 % (34.0-46.0); HGB 14.6 gm/dL (11.4-16.0); Lymphocytes # (A) 1.8 k/uL (1.0-4.8); Lymphocytes % (A) 15 %; MCH 34.3 pg (25.0-35.0); MCV 97.9 fL (80.0-100.0); Monocytes # (A) 0.5 k/uL (0-1.0); Monocytes % (A) 5 %; Neutrophils % (A) 77 %; Platelet Count 219 k/uL (150-450); RBC 4.26 m/uL (3.80-5.40); RDW 13.5 % (11.5-15.5); WBC 11.7 k/uL (3.8-10.6)
[2021-06-21] MEDS ORDERED: KETOROLAC 15 MG/ML 1 ML VIAL IVP STA (09:25)
[2021-06-21 09:43] LABS: African American GFR (CKD) >90 (>60 ml/min/1.73 sqM); Anion Gap 8 mmol/L; Blood Urea Nitrogen 18 mg/dL (7-17); Calcium 9.7 mg/dL (8.4-10.2); Carbon Dioxide 21 mmol/L (22-30); Chloride 108 mmol/L (98-107); Glucose 100 mg/dL (74-99); Non-African American GFR(CKD) 85 (>60 ml/min/1.73 sqM); Potassium 4.5 mmol/L (3.5-5.1); Sodium 137 mmol/L (137-145)
--- NOTE | 2021-06-21 10:22 | CT ---
EXAMINATION TYPE: CT abdomen pelvis wo con DATE OF EXAM: 06/21/2021 COMPARISON: None HISTORY: Left side flank pain. CT DLP: 285.5 mGycm Examination of the solid and hollow viscera is limited given the lack of contrast. FINDINGS: LUNG BASES: No evidence for nodule. No evidence for infiltrate. LIVER/GB: The gallbladder is unremarkable. No space-occupying hepatic lesion. PANCREAS: No pancreatic mass identified. No inflammatory process seen. SPLEEN: No evidence for splenomegaly. No intrasplenic lesions seen. ADRENALS: No adrenal nodules identified. No evidence for thickening. KIDNEYS: No evidence for renal mass. Moderate left-sided hydronephrosis secondary to a 3 mm left UVJ calculus. 5 mm nonobstructing calculu s mid pole left kidney as well as a couple of smaller 2 to 3 mm calculi. Right kidney is unremarkable . BOWEL: Appendix has a normal appearance. No evidence of bowel obstruction. No inflammatory process. Lymph nodes: No evidence for adenopathy greater than 1 cm. Abdominal aorta: Atheromatous changes seen. No evidence for aneurysm. Genital organs: No significant abnormality. Other: No significant abnormality. IMPRESSION: Moderate left-sided hydronephrosis secondary to a 3 mm left UVJ calculus.
[2021-06-21] MEDS ORDERED: HYDROmorphone 0.5 MG/0.5 ML SYRINGE IVP STA (11:03)
[2021-06-21 11:04] VITALS: BP 124/84; PULSE 81
[2021-06-21] MEDS ORDERED: ACET/COD 300 MG/30 MG STARTER PACK 6 TAB BTL PO STA (11:08)
== END 2021-06-21 11:46 | disposition home or self-care (01) ==
LOC: EC 07:56
DX: N13.2 Hydronephrosis with renal and ureteral calculous obstruction (principal); F31.9 Bipolar disorder, unspecified; F41.9 Anxiety disorder, unspecified; F17.200 Nicotine dependence, unspecified, uncomplicated; F12.90 Cannabis use, unspecified, uncomplicated; Z79.899 Other long term (current) drug therapy
CPT/HCPCS: 36415; 80048; 85025; 81001; 81025; 74176; 99284; 96374; 96375; 96361; J1885; J1170

== ENCOUNTER 2021-06-25 17:11 | Emergency (ER) | payer OTHER ==
[2021-06-25 17:20] VITALS: BP 136/84; PULSE 80; RESP 18; TEMP 98.3
--- NOTE | 2021-06-25 18:16 | ED ---
URI HPI - General Chief Complaint: Upper Respiratory Infection Stated Complaint: Fever, Cough Time Seen by Provider: 06/25/21 17:26 Source: patient Mode of arrival: ambulatory Limitations: no limitations - History of Present Illness Initial Comments: Patient is a 30-year-old female presenting to emergency Department with complaints of body aches, fever, chills, headache and a mildly sore throat that all started today. She states that her roommate had developed same symptoms a few days ago. She has concerns for the flu. She denies any chest pains or shortness of breath. She took an ibuprofen about 3 hours ago. She denies having the flu or cold with vaccines. She denies any abdominal pain, no nausea or vomiting, she denies being . She has no further complaints at this time. Her vital signs are stable upon arrival. - Related Data Home Medications Medication Instructions Recorded Confirmed LORazepam [Ativan] 0.5 mg PO BID PRN 02/08/17 06/25/21 Ivabradine HCl [Corlanor] 5 mg PO BID 08/25/19 06/25/21 Ibuprofen [Motrin Ib] 600 mg PO Q8H PRN 06/21/21 06/25/21 Allergies Allergy/AdvReac Type Severity Reaction Status Date / Time albuterol AdvReac INCREASED Verified 06/25/21 17:16 HEART RATE Beta-Blockers AdvReac Dyspnea/Increased Verified 06/25/21 17:16 (Beta-Adrenergic Bloc Heart Rate/Fatigue oxycodone [From Percocet] AdvReac AGITATION Verified 06/25/21 17:16 varenicline [From Chantix] AdvReac AGITATION/A Verified 06/25/21 17:16 GGRESSION Review of Systems ROS Statement: Those systems with pertinent positive or pertinent negative responses have been documented in the HPI. ROS Other: All systems not noted in ROS Statement are negative. Past Medical History Past Medical History: Asthma Additional Past Medical History / Comment(s): Herpes Genitalis, kidney stones History of Any Multi-Drug Resistant Organisms: None Reported Past Surgical History: Pacemaker Additional Past Surgical History / Comment(s): tachycardia Past Anesthesia/Blood Transfusion Reactions: No Reported Reaction Past Psychological History: Anxiety, Bipolar, Depression Smoking Status: Current every day smoker Past Alcohol Use History: Occasional Past Drug Use History: Marijuana - Past Family History Mother Family Medical History: No Reported History General Exam - General Exam Comments Initial Comments: GENERAL: Patient is well-developed and well-nourished. Patient is nontoxic and in no acute distress. HEAD: Atraumatic, normocephalic. EYES: Pupils equal round and reactive to light, extraocular movements intact, sclera anicteric, conjunctiva are normal. Eyelids were unremarkable. ENT: TMs normal, nares patent, oropharynx clear without exudates. Moist mucous membranes. NECK: Normal range of motion, supple without lymphadenopathy or JVD. LUNGS: Unlabored respirations. Breath sounds clear to auscultation bilaterally and equal. No wheezes rales or rhonchi. HEART: Regular rate and rhythm without murmurs, rubs or gallops. ABDOMEN: Soft, nontender, normoactive bowel sounds. No guarding, no rebound. No masses appreciated. : Deferred MUSCULOSKELETAL: Normal extremities with adequate strength and normal range of motion, no pitting or edema. No clubbing or cyanosis. NEUROLOGICAL: Patient is alert and oriented x 3. SKIN: Warm, Dry, normal turgor, no rashes or lesions noted. Limitations: no limitations Course Vital Signs 06/25/21 06/25/21 17:16 18:32 Temperature 98.3 F 98.3 F Pulse Rate 80 80 Respiratory 18 18 Rate Blood Pressure 136/84 136/84 O2 Sat by Pulse 99 99 Oximetry Medical Decision Making - Medical Decision Making Patient is a 30-year-old female here with viral-like symptoms all started today. She has no alarming symptoms stay on exam. Her vital signs are stable. She took ibuprofen just 3 hours prior to arrival. She is requesting a flu test. Patient walked out of the ER before swab was even done. Disposition Clinical Impression: Viral illness Disposition: Left Against Medical Advice Condition: Stable Referrals: Geoff Albert III, MD [Primary Care Provider] - 1-2 days Time of Disposition: 18:38
== END 2021-06-25 18:05 | disposition left against medical advice (07) ==
LOC: EC 17:11
DX: B34.9 Viral infection, unspecified (principal); J45.909 Unspecified asthma, uncomplicated; F17.200 Nicotine dependence, unspecified, uncomplicated; F12.90 Cannabis use, unspecified, uncomplicated; F31.9 Bipolar disorder, unspecified; F41.9 Anxiety disorder, unspecified; Z79.1 Long term (current) use of non-steroidal anti-inflammatories (NSAID); Z79.899 Other long term (current) drug therapy; Z88.5 Allergy status to narcotic agent
CPT/HCPCS: 99283

== ENCOUNTER → 2022-04-14 | Outpatient (CLI) | payer OTHER, MEDICARE ==
--- NOTE | 2022-04-14 13:54 | US ---
EXAMINATION TYPE: US transvaginal DATE OF EXAM: 04/14/2022 COMPARISON: US 06/26/18 CLINICAL HISTORY: N93.8 abnormal uterine and vaginal bleeding. Irregular bleeding since in M arch 2021. . TECHNIQUE: Transvaginal (TV). Attempted transabdominal, but patient's bladder was empty and complet jordi gassed out. Date of LMP: Irregular since in December EXAM MEASUREMENTS: Uterus: 7.9 x 5.1 x 4.3 cm Endometrial Stripe: 0.56 cm Right Ovary: 4.6 x 2.9 x 1.6 cm Left Ovary: 3.4 x 2.0 x 1.4 cm 1. Uterus: Anteverted wnl 2. Endometrium: wnl 3. Right Ovary: Complex cyst measuring 1.7 x 1.3 x 1.3 cm. 4. Left Ovary: wnl Spectral, color and waveform doppler imaging shows good arterial and venous flow within the ovaries ; there is no evidence for ovarian torsion. 5. Bilateral Adnexa: ? Prominent vessels in left adnexa 6. Posterior cul-de-sac: Small amount of fluid seen A lot of peristalsing bowel visualized in both adnexas. IMPRESSION: Complex cyst right ovary may reflect hemorrhagic cyst. Cystic lesion of other etiology not excluded f ollow-up in 6 weeks is advised.
[2022-04-14 14:15] LABS: HCT 38.9 % (34.0-46.0); HGB 13.1 gm/dL (11.4-16.0); MCHC 33.8 g/dL (31.0-37.0); MCV 94.7 fL (80.0-100.0); Mean Platelet Volume 8.4; Platelet Count 225 k/uL (150-450); RBC 4.11 m/uL (3.80-5.40); RDW 12.5 % (11.5-15.5); WBC 12.8 k/uL (3.8-10.6)
== END | disposition home or self-care (01) ==
LOC: RADUSWWP 12:57
PROVIDERS: ATTEND Obstetrics & Gynecology
DX: N93.8 Other specified abnormal uterine and vaginal bleeding (principal); N83.202 Unspecified ovarian cyst, left side
CPT/HCPCS: 76830; 84702; 85027

== ENCOUNTER → 2022-07-06 | Outpatient (CLI) | payer MEDICARE, OTHER ==
[2022-07-06 14:40] LABS: Basophils # (A) 0.03 X 10*3/uL (0.00-0.10); Basophils % (A) 0.3 %; Eosinophils # (A) 0.07 X 10*3/uL (0.04-0.35); Eosinophils % (A) 0.7 %; HCT 43.8 % (37.2-46.3); HGB 14.8 g/dL (12.0-15.0); Immature Grans, Automated 0.4 %; Lymphocytes # (A) 3.15 X 10*3/uL (0.90-5.00); MCH 31.6 pg (27.0-32.0); MCHC 33.8 g/dL (32.0-37.0); MCV 93.6 fL (80.0-97.0); Mean Platelet Volume 11.3 fL (9.5-12.2); Monocytes # (A) 0.72 X 10*3/uL (0.20-1.00); Monocytes % (A) 7.3 %; NRBC Per 100 WBC 0 /100 WBCS (0.0-0.0); Neutrophils # (A) 5.84 X 10*3/uL (1.80-7.70); Neutrophils % (A) 59.3 %; Platelet Count 221 X 10*3/uL (140-440); RBC 4.68 X 10*6/uL (4.10-5.20); RDW 12.4 % (11.5-14.5); WBC 9.85 X 10*3/uL (4.50-10.00)
[2022-07-06 15:37] LABS: African American GFR (CKD) 100.1 (60.0-200.0); Anion Gap 10.9 mmol/L (10.00-18.00); BUN/Creat Ratio 11.78 Ratio (12.00-20.00); Blood Urea Nitrogen 10.6 mg/dL (9.0-27.0); Carbon Dioxide 22.1 mmol/L (20.0-27.5); Non-African American GFR(CKD) 86.4 (60.0-200.0); Potassium 4.8 mmol/L (3.5-5.5)
== END | disposition home or self-care (01) ==
LOC: LABPAT 09:34
PROVIDERS: ATTEND Obstetrics & Gynecology
DX: Z01.812 Encounter for preprocedural laboratory examination (principal)
CPT/HCPCS: 80048; 85025

== ENCOUNTER 2022-07-13 05:37 | Day surgery (SDC) | payer MEDICARE, OTHER ==
[2022-07-10 15:43] VITALS: BMI 17.6
--- NOTE | 2022-07-12 17:01 | P.HPOB ---
History of Present Illness H&P Date: 07/12/22 Chief Complaint: menorrhagia with irregular cycle 31 year old presents for total laparoscopic hysterectomy, bilateral salpingectomy using da kushal and diagnostic cystoscopy, possible MOHINDER BSO. SHe has daily spotting and heavy, painful menstrual cycles. Review of Systems All systems: negative Constitutional: Denies chills, Denies fever Eyes: denies blurred vision, denies pain Ears, nose, mouth and throat: Denies headache, Denies sore throat Cardiovascular: Denies chest pain, Denies shortness of breath Respiratory: Denies cough Gastrointestinal: Denies abdominal pain, Denies diarrhea, Denies nausea, Denies vomiting Genitourinary: Denies dysuria, Denies hematuria Musculoskeletal: Denies myalgias Integumentary: Denies pruritus, Denies rash Neurological: Denies numbness, Denies weakness Psychiatric: Denies anxiety, Denies depression Endocrine: Denies fatigue, Denies weight change Past Medical History Past Medical History: Asthma Additional Past Medical History / Comment(s): Herpes Genitalis, kidney stones. ASTHMA UNDER CONTROL. TACHYCARDIA. BRADYCARDIA/SICK SINUS SYNDROME-HAS PACEMAKER History of Any Multi-Drug Resistant Organisms: None Reported Past Surgical History: Pacemaker Additional Past Surgical History / Comment(s): 2 ABORTIONS Past Anesthesia/Blood Transfusion Reactions: No Reported Reaction Additional Past Anesthesia/Blood Transfusion Reaction / Comment(s): WOKE UP DURING PACEMAKER INSERTION Type of Cardiac Device: Permanent Pacemaker Device Placement Date:: AGE 25 Smoking Status: Current every day smoker - Past Family History Mother Family Medical History: No Reported History Medications and Allergies Home Medications Medication Instructions Recorded Confirmed Type Ivabradine HCl [Corlanor] 5 mg PO BID 08/25/19 07/10/22 History clonazePAM [KlonoPIN] 0.5 mg PO Q8H PRN 07/10/22 07/10/22 History Allergies Allergy/AdvReac Type Severity Reaction Status Date / Time albuterol AdvReac INCREASED Verified 06/25/21 17:16 HEART RATE Beta-Blockers AdvReac Dyspnea/Increased Verified 06/25/21 17:16 (Beta-Adrenergic Bloc Heart Rate/Fatigue oxycodone [From Percocet] AdvReac AGITATION Verified 06/25/21 17:16 varenicline [From Chantix] AdvReac AGITATION/A Verified 06/25/21 17:16 GGRESSION Exam Osteopathic Statement: *. No significant issues noted on an osteopathic structural exam other than those noted in the History and Physical/Consult. HEart: RRR Lungs: CTAB Abdomen: soft, nontender Extremeties: neg lizandro's Assessment and Plan (1) Menorrhagia Status: Acute Code(s): N92.0 - EXCESSIVE AND FREQUENT MENSTRUATION WITH REGULAR CYCLE SNOMED Code(s): 763385473 (2) Dysmenorrhea Status: Acute Code(s): N94.6 - DYSMENORRHEA, UNSPECIFIED SNOMED Code(s): 205054102 Plan: [facility] BS using da kushal and diagnostic cystoscopy, possible MOHINDER BSO
[2022-07-13] MEDS ORDERED: DEXAMETHASONE SOD PHOSPHATE 4 MG/ML 1 ML VIAL IV ONE (05:48)
[2022-07-13] MEDS ORDERED: LACTATED RINGERS 1,000 ML IV SCH (05:48)
[2022-07-13] MEDS ORDERED: ONDANSETRON 4 MG/2 ML VIAL IVP ONE (05:48)
[2022-07-13] MEDS ORDERED: LIDOCAINE 1% (10MG/ML) FOR IV START INTRADERMA ONE (06:20)
[2022-07-13] MEDS ORDERED: MIDAZOLAM 2 MG/2 ML VIAL IV ONE (06:45)
[2022-07-13] MEDS ORDERED: ROCURONIUM 10 MG/ML (5 ML VIAL) IV ONE (07:00)
[2022-07-13] MEDS ORDERED: SUCCINYLCHOLINE CHLORIDE 200 MG/10 ML VIAL IV ONE (07:00)
[2022-07-13] MEDS ORDERED: fentaNYL (PF) 50 MCG/ML 2 ML AMP ONE (07:00)
[2022-07-13] MEDS ORDERED: GLYCOPYRROLATE 0.2 MG/ML 2 ML VIAL ONE (07:00)
[2022-07-13] MEDS ORDERED: KETOROLAC 15 MG/ML 1 ML VIAL ONE (07:00)
[2022-07-13] MEDS ORDERED: HYDROmorphone (PF) 1 MG/ML ONE (07:00)
[2022-07-13] MEDS ORDERED: INDOCYANINE GREEN 25 MG VIAL IV ONE (07:00)
[2022-07-13] MEDS ORDERED: LIDOCAINE 2% INJ 20 MG/ML (2 ML VIAL) ONE (07:00)
[2022-07-13] MEDS ORDERED: PROPOFOL 10 MG/ML 20 ML VIAL IV ONE (07:00)
[2022-07-13] MEDS ORDERED: NEOSTIGMINE 1 MG/ML 10 ML VIAL ONE (07:00)
[2022-07-13] MEDS ORDERED: MIDAZOLAM 2 MG/2 ML VIAL ONE (07:00)
[2022-07-13] MEDS ORDERED: BUPIVACAINE (PF) 0.25% 30 ML VIAL SQ ONE ×4 (08:10→08:46)
[2022-07-13] MEDS ORDERED: CELLULOSE,OXIDIZED 1 EACH EACH MISCELLANE ONE ×2 (08:24→08:39)
[2022-07-13] MEDS ORDERED: LACTATED RINGERS 1,000 ML IV ONE (08:41)
--- NOTE | 2022-07-13 09:10 | P.OP ---
Date of Procedure: 07/13/22 Preoperative Diagnosis: 1. Menorrhagia 2. Dysmenorrhea Postoperative Diagnosis: 1. Menorrhagia 2. Dysmenorrhea 3. Endometriosis Procedure(s) Performed: Total laparoscopic hysterectomy bilateral salpingectomy using da Jonathan, diagnostic cystoscopy, placement of Interceed Anesthesia: MARTHA Surgeon: Marifer Judd [employer] Instructor #1: Marily Bernal Estimated Blood Loss (ml): 50 IV fluids (ml): 1,000 Urine output (ml): 150 Pathology: other (Uterus cervix bilateral fallopian tubes) Condition: stable Disposition: PACU Operative Findings: The right ovary was stuck to the right ovarian fossa along with rectum being pulled up into the right ovarian fossa. Description of Procedure: Patient taken the operating room where general anesthesia was obtained without difficulty. She is prepped and draped in normal sterile fashion dorsal lithotomy position, legs placed in the Nathaniel stirrups. Weighted speculum placed in the vagina and the anterior lip the cervix was grasped with single-tooth tenaculum. The uterus sounded to 7 cm and the cervix diameter was 3.5 cm. The appropriate manipulator tip and ring were placed on the Rosa manipulator. The Rosa manipulator was then placed in the uterus. Hercules catheter was also placed. Attention was then turned to the abdomen and gloves were changed. A 5 mm supraumbilical incision was made the scalpel and a 5 mm optical trocar was dali john under direct visualization. 10 cm to the right of this and 2 cm down a 5 mm incision was made and 8 mm da Jonathan port was placed under direct visualization. Same measurements on the opposite side of the patient's abdomen, the 5 mm incision was made and 8 mm da Jonathan port was placed under direct visualization. In the left upper quadrant a 10 mm incision was made and a 10 mm optical trocar was placed under direct visualization. The 5 mm optical trocar was then replaced with the 8 mm da Jonathan camera port. The robot was docked on patient's right side. The camera was introduced and then the monopolar curved scissor and [place] bipolar placed under direct visualization. I broke scrub and went to the physician console. The left mesosalpinx was cauterized with the [place] bipolar and cut with monopolar curved scissors to free the fallopian tube. The left round ligament and utero-ovarian ligaments were cauterized with the [place] bipolar and cut with monopolar curved scissors. The posterior leaf of the broad ligament was taken down using the monopolar curved scissors. Anterior leaf of the broad ligament was then taken down using the monopolar curved scissors. The uterine artery was cauterized with the [place] bipolar and cut with monopolar curved scissors. The bladder flap was then started using the monopolar curved scissors. Attention was then turned to the right side of the patient's anatomy. First it was noted that the right ovary was stuck to the right ovarian fossa and posterior aspect of the uterus. This was easily peeled off. More inspection of this area showed that the rectum was also pulled up and stuck to the right ovarian fossa. This was easily peeled off with blunt dissection. Then, the right mesosalpinx was cauterized with the [place] bipo lar and cut with monopolar curved scissors to free the right fallopian tube. The right round ligament and utero-ovarian ligaments were cauterized with the [place] bipolar and cut with monopolar curved scissors. Posterior leaf of the broad ligament was taken down using the monopolar curved scissors and the anterior leaf was taken down using the monopolar curved scissors. The uterine artery was cauterized the [place] bipolar cut with monopolar curved scissors. The bladder flap was then finished on this side. Anterior colpotomy was made using the monopolar curved scissors. The rest of the uterus was from the vaginal cuff by following the ring around with the monopolar curved scissors through the uterosacral ligaments back to the anterior portion. Once the uterus and cervix were amputated they were pulled through the vaginal cuff. Hemostasis was assured. The fire 5 was then used to identify endometriosis. There was some endometriosis over the right ovarian fossa but this tissue is rather thick and I'm uncomfortable taking it for risk of damaging the ureter. The instruments were changed for the fenestrated bipolar and the dilshad suture cut. The vaginal cuff was then closed using 0 Vicryl and 4 [id number] fashion. Hemostasis was again assured and the pelvis was irrigated. All instruments were removed from the abdomen and the robot was undocked. I scrubbed back in to perform a cystoscopy. There were jets from both ureteral orifices. The abdominal incisions were closed with 4-0 Vicryl in a subcuticular fashion. Patient tolerated the procedure well, sponge and instrument counts correct 2 and she was taken to recovery room in stable condition condition
[2022-07-13] MEDS: fentaNYL (PF) 50 MCG/ML 2 ML AMP IV PRN ×2 (09:25→09:47)
[2022-07-13] MEDS ORDERED: IBUPROFEN 600 MG TAB PO PRN (10:20)
[2022-07-13] MEDS ORDERED: METOCLOPRAMIDE 5 MG/ML 2 ML VIAL IVP PRN (10:20)
[2022-07-13] MEDS ORDERED: SIMETHICONE 80 MG CHEWABLE PO PRN (10:20)
[2022-07-13] MEDS ORDERED: ONDANSETRON 4 MG/2 ML VIAL IVP PRN (10:20)
[2022-07-13] MEDS ORDERED: clonazePAM 0.5 MG TAB PO PRN (10:20)
[2022-07-13] MEDS: KETOROLAC 15 MG/ML 1 ML VIAL IVP PRN ×2 (14:31→19:54)
[2022-07-13] MEDS: HYDROcodone/APAP 7.5-325MG 1 EACH TAB PO PRN ×2 (16:04→22:00)
[2022-07-13] MEDS ORDERED: NICOTINE 21MG/24HR PATCH TRANSDERM STA (16:43)
[2022-07-13] MEDS: SENNOSIDES-DOCUSATE SODIUM 1 EACH TAB PO SCH (19:55)
[2022-07-13] MEDS: NON FORMULARY DRUG (Ivabradine Hcl [Corlanor] 5 MG Tablet) PO SCH (22:01)
[2022-07-14] MEDS: KETOROLAC 15 MG/ML 1 ML VIAL IVP PRN (02:19)
[2022-07-14 04:30] VITALS: PULSE 65; TEMP 98.3
[2022-07-14] MEDS: HYDROcodone/APAP 7.5-325MG 1 EACH TAB PO PRN (04:30)
--- NOTE | 2022-07-14 07:36 | P.DS ---
Providers Expected date of discharge: 07/14/22 Attending physician: Marifer Judd Primary care physician: Geoff Mcmillanden - Discharge Diagnosis(es) (1) Menorrhagia Current Visit: No Status: Resolved (2) Dysmenorrhea Current Visit: No Status: Resolved (3) History of robot-assisted laparoscopic hysterectomy Current Visit: Yes Status: Acute Hospital Course: Patient presented for total laparoscopic hysterectomy bilateral salpingectomy using da Jonathan. She underwent this procedure without complication. Postoperatively she did wake up and have some panic when she had some pain. She was given her Klonopin 0.5 and [place] and she felt much better. She also required a nicotine patch. Her incisions are clean, dry, intact. She is tolerating regular diet and passing flatus. She denies nausea, vomiting, chest pain, shortness of breath or any calf pain. Patient will be discharged home postoperative day #1 in stable condition to follow-up with me in 3 weeks. Plan - Discharge Summary Discharge Rx Participant: Yes New Discharge Prescriptions: New Ibuprofen [Motrin] 600 mg PO Q6HR PRN #40 tab PRN Reason: Mild Discomfort HYDROcodone/APAP 7.5-325MG [[place] 7.5-325] 1 each PO Q4-6H PRN #18 tab PRN Reason: Pain No Action Ivabradine HCl [Corlanor] 5 mg PO BID clonazePAM [KlonoPIN] 0.5 mg PO Q8H PRN PRN Reason: Anxiety Discharge Medication List Ivabradine HCl [Corlanor] 5 mg PO BID 08/25/19 [History] clonazePAM [KlonoPIN] 0.5 mg PO Q8H PRN 07/10/22 [History] HYDROcodone/APAP 7.5-325MG [[place] 7.5-325] 1 each PO Q4-6H PRN #18 tab 07/14/22 [Rx] Ibuprofen [Motrin] 600 mg PO Q6HR PRN #40 tab 07/14/22 [Rx] Follow up Appointment(s)/Referral(s): Marifer Judd DO [Doctor of Osteopathic Medicine] - 3 Weeks Discharge Disposition: HOME SELF-CARE
[2022-07-14 07:50] LABS: Basophils % (A) 0 %; Eosinophils # (A) 0.1 k/uL (0-0.7); Eosinophils % (A) 1 %; HCT 38.2 % (34.0-46.0); HGB 12.8 gm/dL (11.4-16.0); Lymphocytes # (A) 3.2 k/uL (1.0-4.8); Lymphocytes % (A) 34 %; MCH 31.6 pg (25.0-35.0); MCHC 33.5 g/dL (31.0-37.0); MCV 94.4 fL (80.0-100.0); Mean Platelet Volume 8.4; Monocytes # (A) 0.6 k/uL (0-1.0); Monocytes % (A) 7 %; Neutrophils # (A) 5.4 k/uL (1.3-7.7); Neutrophils % (A) 57 %; Platelet Count 213 k/uL (150-450); RBC 4.04 m/uL (3.80-5.40); WBC 9.6 k/uL (3.8-10.6)
[2022-07-14 08:26] VITALS: BP 124/83; RESP 18
[2022-07-14] MEDS: SENNOSIDES-DOCUSATE SODIUM 1 EACH TAB PO SCH (08:31)
[2022-07-14] MEDS ORDERED: ACETAMINOPHEN TAB 325 MG TAB PO PRN (09:11)
[2022-07-14] MEDS: NON FORMULARY DRUG (Ivabradine Hcl [Corlanor] 5 MG Tablet) PO SCH (10:18)
== END 2022-07-14 09:30 | disposition home or self-care (01) ==
LOC: OR 05:37 → 4FBP 09:25 → OR 07-14 09:30
PROVIDERS: ATTEND Obstetrics & Gynecology
DX: N93.8 Other specified abnormal uterine and vaginal bleeding (principal); N92.0 Excessive and frequent menstruation with regular cycle; N94.6 Dysmenorrhea, unspecified; J45.909 Unspecified asthma, uncomplicated; B00.9 Herpesviral infection, unspecified; N20.0 Calculus of kidney; R00.0 Tachycardia, unspecified; I49.5 Sick sinus syndrome; F17.200 Nicotine dependence, unspecified, uncomplicated; Z88.9 Allergy status to unspecified drugs, medicaments and biological substances; Z88.8 Allergy status to other drugs, medicaments and biological substances; Z88.5 Allergy status to narcotic agent; Z95.0 Presence of cardiac pacemaker; Z79.899 Other long term (current) drug therapy
CPT/HCPCS: 58571; 52005; 81025; 85025; S4990; J2250; J1100; J2405; J0690; J3010; J1885 ×2; 86850; 86900; 86901; 88307

== ENCOUNTER 2022-07-24 08:45 | Inpatient (IN) | payer MEDICARE, OTHER ==
[2022-07-24] MEDS ORDERED: SODIUM CHLORIDE 0.9% 1,000 ML IV STA (09:16)
[2022-07-24] MEDS ORDERED: SODIUM CHLORIDE 0.9% 500 ML 500 ML IV STA (09:16)
[2022-07-24 09:31] LABS: Basophils % (A) 0 %; Eosinophils # (A) 0.1 k/uL (0-0.7); Eosinophils % (A) 1 %; HCT 43.3 % (34.0-46.0); HGB 14.7 gm/dL (11.4-16.0); Lymphocytes % (A) 14 %; MCH 31.3 pg (25.0-35.0); MCHC 33.9 g/dL (31.0-37.0); MCV 92.3 fL (80.0-100.0); Mean Platelet Volume 8.4; Monocytes # (A) 0.7 k/uL (0-1.0); Monocytes % (A) 5 %; Neutrophils # (A) 11.3 k/uL (1.3-7.7); Neutrophils % (A) 79 %; Platelet Count 303 k/uL (150-450); RBC 4.69 m/uL (3.80-5.40); RDW 12.1 % (11.5-15.5); WBC 14.2 k/uL (3.8-10.6)
[2022-07-24 09:45] LABS: Albumin 4.9 g/dL (3.5-5.0)
[2022-07-24 09:47] LABS: ALT 20 U/L (4-34); AST 19 U/L (14-36); African American GFR (CKD) >90 (>60 ml/min/1.73 sqM); Alkaline Phosphatase 84 U/L (38-126); Anion Gap 14 mmol/L; Blood Urea Nitrogen 16 mg/dL (7-17); Calcium 9.9 mg/dL (8.4-10.2); Carbon Dioxide 24 mmol/L (22-30); Chloride 103 mmol/L (98-107); Glucose 101 mg/dL (74-99); Lipase 90 U/L (23-300); Non-African American GFR(CKD) >90 (>60 ml/min/1.73 sqM); Potassium 4.5 mmol/L (3.5-5.1); Sodium 141 mmol/L (137-145); Total Bilirubin 0.8 mg/dL (0.2-1.3); Total Protein 7.7 g/dL (6.3-8.2)
--- NOTE | 2022-07-24 10:17 | CT ---
EXAMINATION TYPE: CT abdomen pelvis w con DATE OF EXAM: 07/24/2022 HISTORY: Abdominal pain, post hysterectomy 07/13 hasn't had bowel movement in 10 days. Pt vomiting dur ing exam and moved, misaligning scan ( liver) CT DLP: 458.8mGycm Automated Exposure Control for Dose Reduction was Utilized. CONTRAST: CT scan of the abdomen and pelvis is performed without oral and with IV Contrast, patient injected wi th 100 mL of Isovue 300. COMPARISON: Prior CT June 21, 2021 FINDINGS: Exam is suboptimal as patient unable to hold still. LUNG BASES: Partial visualization of pacemaker leads. LIVER/GB: Liver size is stable and mildly enlarged. PANCREAS: No significant abnormality is seen. SPLEEN: No significant abnormality is seen. ADRENALS: No significant abnormality is seen. KIDNEYS: Several left-sided renal calculi seen better on recent CT with larger calculi in the lower p ole level coronal image 52 for reference redemonstrated. Incidental 1.1 cm benign thin-walled cyst in the right kidney midpole level axial image 28. Symmetric corticomedullary uptake and excretion witho ut hydronephrosis seen bilaterally. BOWEL: Patient has little intra-abdominal fat and lack of enteric contrast make evaluation of bowel s lightly suboptimal. There is however no suspicious small or large bowel dilatation. Moderate to sever e wall thickening in the sigmoid colon is present. UTERUS/ADNEXA: Uterus is now surgically absent. There is 2.8 x 2.8 x 2.8 cm thin-walled fluid collect ion in the central pelvis axial image 62 now present. There are smaller 1.4 cm oval low dense lesion possible focal fluid collection or cystic lesion of left ovary axial image 62 left pelvis. There is m oderate ill-defined fluid and fat stranding throughout the pelvis. Prominent draining ovarian veins a re noted. LYMPH NODES: No greater than 1cm abdominal or pelvic lymph nodes are appreciated. OSSEOUS STRUCTURES: Facet arthropathy lower lumbar levels. Tiny posterior disc herniations L4-L5 and L5-S1 level again seen. OTHER: No significant additional abnormality is seen. IMPRESSION: Overall nonobstructive bowel gas pattern. Is nonspecific moderate ill-defined fluid and f at stranding in the pelvis could reflect product of recent surgery/hysterectomy. Infectious process o r etiology cannot be excluded. New 2.8 cm thin-walled fluid collection in the central pelvis could re flect postoperative seroma, abscess and hematoma are in the differential. There appears to be reactiv e colitis of the sigmoid colon in the pelvis suggesting pelvic infection.
[2022-07-24 10:51] LABS: Appearance,Urine Clear (Clear); Bilirubin,Urine Negative (Negative); Blood,Urine Negative (Negative); Color,Urine Light Yellow; Glucose,Urine (UA) Negative (Negative); Ketones,Urine Negative (Negative); Leukocyte Esterase,Urine Negative (Negative); Nitrite,Urine Negative (Negative); Protein,Urine Negative (Negative); Specific Gravity,Urine 1.041 (1.001-1.035); Urobilinogen,Urine <2.0 mg/dL (<2.0)
[2022-07-24] MEDS ORDERED: VANCOMYCIN IV PER PHARMACY 1 EACH MISC MISCELLANE PRN (11:16)
[2022-07-24] MEDS ORDERED: ONDANSETRON 4 MG/2 ML VIAL IVP PRN (11:18)
[2022-07-24] MEDS ORDERED: HYDROcodone/APAP 5-325MG 1 EACH TAB PO PRN (11:18)
[2022-07-24] MEDS ORDERED: NALOXONE 0.4 MG/ML 1 ML VIAL IV PRN (11:18)
--- NOTE | 2022-07-24 11:19 | ED ---
Abdominal Pain HPI - General Chief Complaint: Abdominal Pain Stated Complaint: abd pain Time Seen by Provider: 07/24/22 08:53 Source: patient, RN notes reviewed Mode of arrival: ambulatory Limitations: no limitations - History of Present Illness Initial Comments: 31-year-old female presents emergency Department chief complaint abdominal pain. Patient states she had a hysterectomy by Dr. Judd on 07/13/22 in which she states she had no comp medications during the procedure states that she felt fine recently started developing abdominal pain patient states she's felt constipated. Patient states there is increasing pain she's had subjective fevers and chills. Patient denies any dysuria hematuria. Patient states her incision sites have healed up. Patient states even before her surgery she started having increasing abdominal pain. - Related Data Home Medications Medication Instructions Recorded Confirmed Ivabradine HCl [Corlanor] 5 mg PO BID 08/25/19 07/24/22 clonazePAM [KlonoPIN] 0.5 mg PO Q8H PRN 07/10/22 07/24/22 HYDROcodone/APAP 7.5-325MG [[place] 1 tab PO Q4-6H PRN 07/24/22 07/24/22 7.5-325] Ibuprofen [Motrin] 600 mg PO Q6H PRN 07/24/22 07/24/22 Magnesium Oxide [Mag-Ox] 400 mg PO BID 07/24/22 07/24/22 Nicotine 21Mg/24Hr Patch [Habitrol] 1 patch TRANSDERM DAILY PRN 07/24/22 2 Simethicone [Gas-X] 125 mg PO DAILY PRN 07/24/22 07/24/22 Allergies Allergy/AdvReac Type Severity Reaction Status Date / Time Beta-Blockers Allergy Dyspnea/Increased Verified 07/24/22 10:55 (Beta-Adrenergic Bloc Heart Rate/Fatigue vancomycin Allergy Itching Verified 07/24/22 12:14 albuterol AdvReac INCREASED Verified 07/24/22 10:55 HEART RATE oxycodone [From Percocet] AdvReac AGITATION Verified 07/24/22 10:55 varenicline [From Chantix] AdvReac AGITATION/A Verified 07/24/22 10:55 GGRESSION Review of Systems ROS Statement: Those systems with pertinent positive or pertinent negative responses have been documented in the HPI. ROS Other: All systems not noted in ROS Statement are negative. Past Medical History Past Medical History: Asthma Additional Past Medical History / Comment(s): Herpes Genitalis, kidney stones History of Any Multi-Drug Resistant Organisms: None Reported Past Surgical History: Hysterectomy Additional Past Surgical History / Comment(s): tachycardia Past Anesthesia/Blood Transfusion Reactions: No Reported Reaction Past Psychological History: Anxiety, Bipolar, Depression Smoking Status: Current every day smoker Past Alcohol Use History: Occasional Past Drug Use History: None Reported - Past Family History Mother Family Medical History: No Reported History Father Family Medical History: Congestive Heart Failure (CHF), COPD General Exam Limitations: no limitations General appearance: alert, in no apparent distress Head exam: Present: atraumatic, normocephalic, normal inspection Eye exam: Present: normal appearance, PERRL, EOMI. Absent: scleral icterus, conjunctival injection, periorbital swelling Neck exam: Present: normal inspection. Absent: tenderness, meningismus, lymphadenopathy Respiratory exam: Present: normal lung sounds bilaterally. Absent: respiratory distress, wheezes, rales, rhonchi, stridor Cardiovascular Exam: Present: regular rate, normal rhythm, normal heart sounds. Absent: systolic murmur, diastolic murmur, rubs, gallop, clicks GI/Abdominal exam: Present: soft, tenderness, normal bowel sounds. Absent: distended, guarding, rebound, rigid Back exam: Absent: CVA tenderness (R), CVA tenderness (L) Course Vital Signs 07/24/22 07/24/22 08:46 16:29 Temperature 98.0 F Pulse Rate 102 H 63 Respiratory 18 16 Rate Blood Pressure 113/76 116/78 O2 Sat by Pulse 100 100 Oximetry Medical Decision Making - Medical Decision Making CT shows approximately 3 cm thin-walled fluid collection possibly abscess versus seroma. Patient does have reactive colitis type changes. Patient will be started antibiotics case discussed with medicine, Dr. Judd with consult to Dr. Shay - Lab Data Result diagrams: 07/24/22 09:23 07/24/22 09:23 Lab Results 07/24/22 07/24/22 07/24/22 Range/Units 09:23 09:23 09:23 WBC 14.2 H (3.8-10.6) k/uL RBC 4.69 (3.80-5.40) m/uL Hgb 14.7 (11.4-16.0) gm/dL Hct 43.3 (34.0-46.0) % MCV 92.3 (80.0-100.0) fL MCH 31.3 (25.0-35.0) pg MCHC 33.9 (31.0-37.0) g/dL RDW 12.1 (11.5-15.5) % Plt Count 303 (150-450) k/uL MPV 8.4 Neutrophils % 79 % Lymphocytes % 14 % Monocytes % 5 % Eosinophils % 1 % Basophils % 0 % Neutrophils # 11.3 H (1.3-7.7) k/uL Lymphocytes # 2.0 (1.0-4.8) k/uL Monocytes # 0.7 (0-1.0) k/uL Eosinophils # 0.1 (0-0.7) k/uL Basophils # 0.0 (0-0.2) k/uL ESR (0-20) mm/hr Sodium 141 (137-145) mmol/L Potassium 4.5 (3.5-5.1) mmol/L Chloride 103 (98-107) mmol/L Carbon Dioxide 24 (22-30) mmol/L Anion Gap 14 mmol/L BUN 16 (7-17) mg/dL Creatinine 0.73 (0.52-1.04) mg/dL Est GFR (CKD-EPI)AfAm >90 (>60 ml/min/1.73 sqM) Est GFR (CKD-EPI)NonAf >90 (>60 ml/min/1.73 sqM) Glucose 101 H (74-99) mg/dL Plasma Lactic Acid Harry (0.7-2.0) mmol/L Calcium 9.9 (8.4-10.2) mg/dL Total Bilirubin 0.8 (0.2-1.3) mg/dL AST 19 (14-36) U/L ALT 20 (4-34) U/L Alkaline Phosphatase 84 (38-126) U/L C-Reactive Protein (<1.0) mg/dL Total Protein 7.7 (6.3-8.2) g/dL Albumin 4.9 (3.5-5.0) g/dL Lipase 90 (23-300) U/L Urine Color Light Yellow Urine Appearance Clear (Clear) Urine pH 6.0 (5.0-8.0) Ur Specific [place] 1.041 H (1.001-1.035) Urine Protein Negative (Negative) Urine Glucose (UA) Negative (Negative) Urine Ketones Negative (Negative) Urine Blood Negative (Negative) Urine Nitrite Negative (Negative) Urine Bilirubin Negative (Negative) Urine Urobilinogen <2.0 (<2.0) mg/dL Ur Leukocyte Esterase Negative (Negative) 07/24/22 07/24/22 07/24/22 Range/Units 09:23 09:23 09:23 WBC (3.8-10.6) k/uL RBC (3.80-5.40) m/uL Hgb (11.4-16.0) gm/dL Hct (34.0-46.0) % MCV (80.0-100.0) fL MCH (25.0-35.0) pg MCHC (31.0-37.0) g/dL RDW (11.5-15.5) % Plt Count (150-450) k/uL MPV Neutrophils % % Lymphocytes % % Monocytes % % Eosinophils % % Basophils % % Neutrophils # (1.3-7.7) k/uL Lymphocytes # (1.0-4.8) k/uL Monocytes # (0-1.0) k/uL Eosinophils # (0-0.7) k/uL Basophils # (0-0.2) k/uL ESR 31 H (0-20) mm/hr Sodium (137-145) mmol/L Potassium (3.5-5.1) mmol/L Chloride (98-107) mmol/L Carbon Dioxide (22-30) mmol/L Anion Gap mmol/L BUN (7-17) mg/dL Creatinine (0.52-1.04) mg/dL Est GFR (CKD-EPI)AfAm (>60 ml/min/1.73 sqM) Est GFR (CKD-EPI)NonAf (>60 ml/min/1.73 sqM) Glucose (74-99) mg/dL Plasma Lactic Acid Harry 0.8 (0.7-2.0) mmol/L Calcium (8.4-10.2) mg/dL Total Bilirubin (0.2-1.3) mg/dL AST (14-36) U/L ALT (4-34) U/L Alkaline Phosphatase (38-126) U/L C-Reactive Protein 2.0 H (<1.0) mg/dL Total Protein (6.3-8.2) g/dL Albumin (3.5-5.0) g/dL Lipase (23-300) U/L Urine Color Urine Appearance (Clear) Urine pH (5.0-8.0) Ur Specific [place] (1.001-1.035) Urine Protein (Negative) Urine Glucose (UA) (Negative) Urine Ketones (Negative) Urine Blood (Negative) Urine Nitrite (Negative) Urine Bilirubin (Negative) Urine Urobilinogen (<2.0) mg/dL Ur Leukocyte Esterase (Negative) Disposition Clinical Impression: Intra-abdominal abscess, Colitis Disposition: ADMITTED IP TO THIS HOSP Condition: Fair
[2022-07-24] MEDS ORDERED: VANCOMYCIN 750 MG in SODIUM CHLORIDE 0.9% 250 ML IVPB STA (11:37)
[2022-07-24] MEDS ORDERED: diphenhydrAMINE 50 MG/ML 1 ML VIAL IVP STA (12:16)
[2022-07-24] MEDS: SODIUM CHLORIDE 0.9% 1,000 ML IV SCH ×2 (12:21→23:51)
[2022-07-24] MEDS ORDERED: NICOTINE 21MG/24HR PATCH TRANSDERM STA (12:40)
[2022-07-24] MEDS: SIMETHICONE 80 MG CHEWABLE PO SCH ×3 (13:43→21:00)
[2022-07-24] MEDS: clonazePAM 0.5 MG TAB PO PRN ×2 (13:43→22:06)
[2022-07-24] MEDS: PIPERACILLIN-TAZOBACTAM 3.375 GM in SODIUM CHLORIDE 0.9% 100 ML IVPB SCH ×2 (13:48→21:00)
[2022-07-24] MEDS ORDERED: PIPERACILLIN-TAZOBACTAM 3.375 GM in SODIUM CHLORIDE 0.9% 100 ML IVPB SCH (16:00)
[2022-07-24] MEDS: MAGNESIUM OXIDE 400 MG TAB PO SCH (21:00)
[2022-07-24] MEDS ORDERED: VANCOMYCIN 750 MG in SODIUM CHLORIDE 0.9% 250 ML IVPB SCH (22:00)
--- NOTE | 2022-07-25 05:12 | HP ---
HISTORY AND PHYSICAL CHIEF COMPLAINTS: Lower abdominal pain. HISTORY OF PRESENT ILLNESS: This is a 31-year-old woman with a past medical history of asthma, recently had hysterectomy. The patient is complaining of some lower abdominal pain ever since, and the patient came to [facility], possibility of abdominal abscess. White count is elevated. A CT scan was done, which showed evidence of some fluid collection, nonobstructive bowel gas pattern and states infectious disease cannot be completely excluded. The patient was admitted for further evaluation and treatment. There is no history of any fever, rigors, or chills. The patient received vancomycin received possibly allergic reaction/_ syndrome. PAST MEDICAL HISTORY: Reviewed, include asthma, herpes. MEDICATIONS: Home medications were again reviewed include Klonopin, doses and rest of medication noted. ALLERGIES: Reviewed, include vancomycin. FAMILY HISTORY: No history of significant stroke or heart attack. SOCIAL HISTORY: History of smoking. REVIEW OF SYSTEMS: A 14-point review of systems is negative except as mentioned earlier. PHYSICAL EXAMINATION: VITAL SIGNS: Pulse is 102, blood pressure 130/76, respirations 18. HEENT: Conjunctivae normal. NECK: No JVD. CARDIOVASCULAR: S1, S2 muffled. RESPIRATIONS: Breath sounds diminished at the bases. No rhonchi. No crackles. ABDOMEN: Soft, status post laparoscopic surgery. Minimal tenderness. No guarding. No rigidity. Bowel sounds diminished. LEGS: No edema. No cyanosis. NERVOUS SYSTEM: No focal deficits. LABS: WBC 14.2. The rest of the labs are noted. ASSESSMENT: 1. Abdominal pain, rule out abdominal abscess. 2. Increased WBC. 3. History of recent hysterectomy. 4. History of asthma. 5. Multiple medical issues. RECOMMENDATIONS AND DISCUSSION: This is a 31-year-old woman, who presented with multiple complex medical issues. We will monitor the patient closely. Empiric antibiotics. Infectious Disease and [employer] evaluation. Obtain cultures. Resume the home medications. Prognosis guarded because of multiple complex medical problems. See orders for further details. Discussed with the patient DVT prophylaxis. MMODL / IJN: [id number] / [email or web address]
[2022-07-25] MEDS: PIPERACILLIN-TAZOBACTAM 3.375 GM in SODIUM CHLORIDE 0.9% 100 ML IVPB SCH ×2 (05:58→12:44)
--- NOTE | 2022-07-25 07:16 | P.CONS ---
History of Present Illness - Reason for Consult Consult date: 07/24/22 Intra-abdominal abscess Requesting physician: David Lewis - Chief Complaint Abdominal pain few days - History of Present Illness Patient is a 31-year-old female who is status post laparoscopic hysterectomy completed on 07/13/2022 patient was subsequently discharged home in stable condition has been coming back to the hospital for evaluation of lower abdominal pain that has been getting worse for the last few days patient described the pain to be more of a sharp in nature almost 10 of 10 in severity with associated nausea but no vomiting no diarrhea however the patient is feeling constipated patient denies having any burning or frequency of urine and no drainage from her abdominal incision used for laparoscopic with the symptoms the patient has been evaluated by ER physician on arrival to the ER patient was afebrile and no fever have been recorded subsequently patient did have white count of 14.2 with a left shift kidney function has been normal liver enzymes are normal urine has been negative patient did have a CT of abdominal pelvis ill-defined fluid and fat stranding in the pelvis could reflect products of recent surgery there was a 2.8 cm thin-walled fluid collection in the central pelvis could reflect seroma and abscess patient was started on Zosyn has been admitted to the hospital infectious disease was consulted for further management of antibiotic therapy Review of Systems Positive point has been mentioned in the HPI rest of the systems are negative Past Medical History Past Medical History: Asthma Additional Past Medical History / Comment(s): Herpes Genitalis, kidney stones, tachycardia, bradycardia History of Any Multi-Drug Resistant Organisms: None Reported Past Surgical History: Hysterectomy, Pacemaker Additional Past Surgical History / Comment(s): tachycardia Past Anesthesia/Blood Transfusion Reactions: No Reported Reaction Type of Cardiac Device: Permanent Pacemaker Device Placement Date:: 2015 Past Psychological History: Anxiety, Bipolar, Depression Additional Psychological History / Comment(s): patient smokes marijuana daily, ocasional alcohol Smoking Status: Current every day smoker Past Alcohol Use History: Occasional Past Drug Use History: None Reported - Past Family History Mother Family Medical History: No Reported History, Asthma, Cancer, COPD Additional Family Medical History / Comment(s): drug addict, bipolar, cervical cancer Father Family Medical History: Congestive Heart Failure (CHF), COPD Medications and Allergies Home Medications Medication Instructions Recorded Confirmed Type Ivabradine HCl [Corlanor] 5 mg PO BID 08/25/19 07/24/22 History clonazePAM [KlonoPIN] 0.5 mg PO Q8H PRN 07/10/22 07/24/22 History HYDROcodone/APAP 7.5-325MG [[place] 1 tab PO Q4-6H PRN 07/24/22 07/24/22 History 7.5-325] Ibuprofen [Motrin] 600 mg PO Q6H PRN 07/24/22 07/24/22 History Magnesium Oxide [Mag-Ox] 400 mg PO BID 07/24/22 07/24/22 History Nicotine 21Mg/24Hr Patch [Habitrol] 1 patch TRANSDERM DAILY PRN 07/24/22 07/24/22 History Simethicone [Gas-X] 125 mg PO DAILY PRN 07/24/22 07/24/22 History Allergies Allergy/AdvReac Type Severity Reaction Status Date / Time Beta-Blockers Allergy Dyspnea/Increased Verified 07/24/22 10:55 (Beta-Adrenergic Bloc Heart Rate/Fatigue vancomycin Allergy Itching Verified 07/24/22 12:14 albuterol AdvReac INCREASED Verified 07/24/22 10:55 HEART RATE oxycodone [From Percocet] AdvReac AGITATION Verified 07/24/22 10:55 varenicline [From Chantix] AdvReac AGITATION/A Verified 07/24/22 10:55 GGRESSION Physical Exam Vitals: Vital Signs Temp Pulse Pulse Resp BP BP Pulse Ox 07/24/22 17:27 98 F 63 20 126/80 100 07/24/22 16:29 63 16 116/78 100 07/24/22 08:46 98.0 F 102 H 18 113/76 100 Intake and Output 07/24/22 07/24/22 07/24/22 06:59 14:59 22:59 Other: Weight 45.359 kg 45.359 kg GENERAL DESCRIPTION: Middle-aged female lying in bed, no distress. No tachypnea or accessory muscle of respiration use. HEENT: Shows Pallor , no scleral icterus. Oral mucous membrane is dry. No pharyngeal erythema or thrush NECK: Trachea central, no thyromegaly. LUNGS: Unlabored breathing. Clear to auscultation anteriorly. No wheeze or crackle. HEART: S1, S2, regular rate and rhythm. No loud murmur ABDOMEN: Soft, mild lower abdominal tenderness , no guarding or rigidity, no organomegaly EXTREMITIES: No edema of feet. SKIN: No rash, no masses palpable. NEUROLOGICAL: The patient is awake, alert, oriented x3, mood and affect normal. Results CBC & Chem 7: 07/25/22 05:48 07/25/22 05:48 Labs: Abnormal Lab Results - Last 24 Hours (Table) 07/24/22 07/24/22 07/24/22 Range/Units 09:23 09:23 09:23 WBC 14.2 H (3.8-10.6) k/uL Neutrophils # 11.3 H (1.3-7.7) k/uL ESR (0-20) mm/hr Glucose 101 H (74-99) mg/dL C-Reactive Protein (<1.0) mg/dL Ur Specific [place] 1.041 H (1.001-1.035) 07/24/22 07/24/22 Range/Units 09:23 09:23 WBC (3.8-10.6) k/uL Neutrophils # (1.3-7.7) k/uL ESR 31 H (0-20) mm/hr Glucose (74-99) mg/dL C-Reactive Protein 2.0 H (<1.0) mg/dL Ur Specific [place] (1.001-1.035) Assessment and Plan (1) Intra-abdominal abscess Status: Acute Code(s): K65.1 - PERITONEAL ABSCESS SNOMED Code(s): 14706371 Plan: 1patient is a 31-year female with recent laparoscopic hysterectomy presented to hospital with abdominal pain patient did have abnormal CT with a 2.8 cm thin-walled fluid collection with question of possible seroma versus abscess patient not running any fever however did have elevated white count. 2CT will be reviewed with radiologist to see the fluid can be drained CT-guided which should be sent for culture. 3continue with Tiana while awaiting further work-up to be completed. We will follow on clinical condition and cultures to further adjust medication if needed Thank you for this consultation will follow this patient along with you Time with Patient: Greater than 30
[2022-07-25] MEDS: clonazePAM 0.5 MG TAB PO PRN (07:35)
[2022-07-25] MEDS ORDERED: NICOTINE 21MG/24HR PATCH TRANSDERM SCH (09:00)
[2022-07-25 09:21] LABS: Basophils # (A) 0.04 X 10*3/uL (0.00-0.10); Basophils % (A) 0.3 %; Eosinophils # (A) 0.13 X 10*3/uL (0.04-0.35); HCT 36.2 % (37.2-46.3); HGB 12.4 g/dL (12.0-15.0); Immature Grans, Automated 0.5 %; Lymphocytes # (A) 2.24 X 10*3/uL (0.90-5.00); Lymphocytes % (A) 16.9 %; MCH 31.5 pg (27.0-32.0); MCHC 34.3 g/dL (32.0-37.0); MCV 91.9 fL (80.0-97.0); Monocytes # (A) 0.96 X 10*3/uL (0.20-1.00); Monocytes % (A) 7.2 %; NRBC Per 100 WBC 0 /100 WBCS (0.0-0.0); Neutrophils # (A) 9.85 X 10*3/uL (1.80-7.70); Neutrophils % (A) 74.1 %; Platelet Count 280 X 10*3/uL (140-440); RBC 3.94 X 10*6/uL (4.10-5.20); WBC 13.28 X 10*3/uL (4.50-10.00)
[2022-07-25 09:33] LABS: African American GFR (CKD) 123.6 (60.0-200.0); Anion Gap 8.7 mmol/L (10.00-18.00); BUN/Creat Ratio 15.48 Ratio (12.00-20.00); Blood Urea Nitrogen 11.7 mg/dL (9.0-27.0); Calcium 8.8 mg/dL (8.7-10.3); Carbon Dioxide 24.2 mmol/L (20.0-27.5); Non-African American GFR(CKD) 106.7 (60.0-200.0); Potassium 4.2 mmol/L (3.5-5.5)
[2022-07-25] MEDS ORDERED: bisacodyL 10 MG SUPP RECTAL STA (09:46)
--- NOTE | 2022-07-25 09:57 | P.OBCN ---
History of Present Illness Consult date: 07/25/22 Reason for consult: other (s/p [facility] BS using da kushal POD #12) Chief complaint: low pelvic, abdominal pain History of present illness: 31 year old is s/p TL BS using da kushal POD #12. She presented to ED yesterday c/o intermittent sharp pain in her low pelvis and rectum. She feels herself fill with gas and then it does not come out. She has pain with bowel movements or attempted bowel movements as well. This has been happening since prior to the surgery. CT showed a small fluid collection and fat stranding-likely from inflammation due to the recent surgical procedure. I do not believe this fluid collection is an abscess. Afebrile and wbc were 14. Pt is looking for some relief to her gastric and intestinal discomfort. I placed her on mag oxide to soften her stools and mylicon to help pass the gas. Pt says these are helping minimally. She was able to pass a small amount of stool and gas this morning. Review of Systems All systems: negative Constitutional: Denies chills, Denies fever Eyes: denies blurred vision, denies pain Ears, nose, mouth and throat: Denies headache, Denies sore throat Cardiovascular: Denies chest pain, Denies shortness of breath Respiratory: Denies cough Gastrointestinal: Reports abdominal pain, Reports constipation, Reports nausea, Denies diarrhea, Denies vomiting Genitourinary: Denies dysuria, Denies hematuria Musculoskeletal: Denies myalgias Integumentary: Denies pruritus, Denies rash Neurological: Denies numbness, Denies weakness Psychiatric: Denies anxiety, Denies depression Endocrine: Denies fatigue, Denies weight change Past Medical History Past Medical History: Asthma Additional Past Medical History / Comment(s): Herpes Genitalis, kidney stones, tachycardia, bradycardia History of Any Multi-Drug Resistant Organisms: None Reported Past Surgical History: Hysterectomy, Pacemaker Additional Past Surgical History / Comment(s): tachycardia Past Anesthesia/Blood Transfusion Reactions: No Reported Reaction Type of Cardiac Device: Permanent Pacemaker Device Placement Date:: 2015 Past Psychological History: Anxiety, Bipolar, Depression Additional Psychological History / Comment(s): patient smokes marijuana daily, ocasional alcohol Smoking Status: Current every day smoker Past Alcohol Use History: Occasional Past Drug Use History: None Reported - Past Family History Mother Family Medical History: No Reported History, Asthma, Cancer, COPD Additional Family Medical History / Comment(s): drug addict, bipolar, cervical cancer Father Family Medical History: Congestive Heart Failure (CHF), COPD Medications and Allergies Home Medications Medication Instructions Recorded Confirmed Type Ivabradine HCl [Corlanor] 5 mg PO BID 08/25/19 07/24/22 History clonazePAM [KlonoPIN] 0.5 mg PO Q8H PRN 07/10/22 07/24/22 History HYDROcodone/APAP 7.5-325MG [[place] 1 tab PO Q4-6H PRN 07/24/22 07/24/22 History 7.5-325] Ibuprofen [Motrin] 600 mg PO Q6H PRN 07/24/22 07/24/22 History Magnesium Oxide [Mag-Ox] 400 mg PO BID 07/24/22 07/24/22 History Nicotine 21Mg/24Hr Patch [Habitrol] 1 patch TRANSDERM DAILY PRN 07/24/22 07/24/22 History Simethicone [Gas-X] 125 mg PO DAILY PRN 07/24/22 07/24/22 History Allergies Allergy/AdvReac Type Severity Reaction Status Date / Time Beta-Blockers Allergy Dyspnea/Increased Verified 07/24/22 10:55 (Beta-Adrenergic Bloc Heart Rate/Fatigue vancomycin Allergy Itching Verified 07/24/22 12:14 albuterol AdvReac INCREASED Verified 07/24/22 10:55 HEART RATE oxycodone [From Percocet] AdvReac AGITATION Verified 07/24/22 10:55 varenicline [From Chantix] AdvReac AGITATION/A Verified 07/24/22 10:55 GGRESSION Exam Osteopathic Statement: *. No significant issues noted on an osteopathic structural exam other than those noted in the History and Physical/Consult. Vital Signs Temp Pulse Pulse Resp BP BP Pulse Ox 07/25/22 07:54 98 F 75 18 116/79 99 07/25/22 05:00 97.0 F L 60 18 104/68 97 07/24/22 20:00 63 16 07/24/22 18:06 16 07/24/22 17:27 98 F 63 20 126/80 100 07/24/22 16:29 63 16 116/78 100 Intake and Output 07/24/22 07/25/2222 22:59 06:59 14:59 Intake Total 500 Balance 500 Intake: Oral 500 Other: Voiding Method Toilet # Voids 1 2 Weight 45.359 kg Heart: RRR Lungs: CTAB Abdomen: soft, nondistended, incisions are C/D/I, nontender Extremeties: neg lizandro's Results Result Diagrams: 07/25/22 05:48 07/25/22 05:48 Abnormal Lab Results - Last 24 Hours (Table) 07/24/22 07/24/22 07/24/22 Range/Units 09:23 09:23 09:23 WBC (4.50-10.00) X 10*3/uL RBC (4.10-5.20) X 10*6/uL Hct (37.2-46.3) % Immature Gran # (0.00-0.04) X 10*3/uL Neutrophils # (1.80-7.70) X 10*3/uL ESR 31 H (0-20) mm/hr Anion Gap (10.00-18.00) mmol/L Glucose 101 H (74-99) mg/dL C-Reactive Protein (<1.0) mg/dL Ur Specific [place] 1.041 H (1.001-1.035) 07/24/22 07/25/22 07/25/22 Range/Units 09:23 05:48 05:48 WBC 13.28 H (4.50-10.00) X 10*3/uL RBC 3.94 L (4.10-5.20) X 10*6/uL Hct 36.2 L (37.2-46.3) % Immature Gran # 0.06 H (0.00-0.04) X 10*3/uL Neutrophils # 9.85 H (1.80-7.70) X 10*3/uL ESR (0-20) mm/hr Anion Gap 8.70 L (10.00-18.00) mmol/L Glucose (74-99) mg/dL C-Reactive Protein 2.0 H (<1.0) mg/dL Ur Specific [place] (1.001-1.035) Assessment and Plan (1) History of robot-assisted laparoscopic hysterectomy Current Visit: No Status: Acute Code(s): Z90.710 - ACQUIRED ABSENCE OF BOTH CERVIX AND UTERUS SNOMED Code(s): 403312256 (2) Gas pain Current Visit: Yes Status: Acute Code(s): R14.1 - GAS PAIN SNOMED Code(s): 53586892 Plan: 1. I would rec treating her bowel issues with a suppository, keep stools soft, encourage bowel movements with reglan and mylicon as well as magnesium oxide. 2. I do not think the fluid collection needs to be drained as it is unlikely to be what is causing her discomfort and not likely an abscess.
[2022-07-25] MEDS: SIMETHICONE 80 MG CHEWABLE PO SCH ×2 (10:07→14:37)
[2022-07-25] MEDS: MAGNESIUM OXIDE 400 MG TAB PO SCH (10:07)
[2022-07-25 11:11] VITALS: BP 119/77; PULSE 103; RESP 20; TEMP 98.1
[2022-07-25] MEDS ORDERED: METOCLOPRAMIDE 10 MG TAB PO SCH (12:30)
[2022-07-25] MEDS ORDERED: NON FORMULARY DRUG (Ivabradine Hcl [Corlanor] 5 MG Tablet) PO SCH (21:00)
--- NOTE | 2022-07-26 01:09 | PN ---
PROGRESS NOTE SUBJECTIVE: This 31-year-old woman was admitted with possible abdominal infection, is being closely monitored at this time. Infectious Disease, Dr. Shay has seen the patient, possibly recommending possible Interventional Radiology intervention. Otherwise, the patient was started on empiric antibiotics. No chest pain. No palpitation. OBJECTIVE: VITAL SIGNS: Pulse is 75, respirations 18. HEENT: Conjunctivae are normal. NECK: No JVD. CARDIOVASCULAR: S1 and S2. RESPIRATION: Breath sounds diminished at the bases. No rhonchi. No crackles. ABDOMEN: Soft. Mild diffuse tenderness in the lower part. No mass palpable. LABORATORY DATA: WBC 13.8. ASSESSMENT: 1. Abdominal pain, rule out intraabdominal abscess. 2. Increased WBC. 3. History of recent hysterectomy. 4. History of asthma. 5. Multiple medical issues. RECOMMENDATIONS: I recommend to continue current medications and symptomatic treatment. Otherwise, continue with antibiotics. Closely follow with Infectious Disease and initiate Interventional Radiology evaluation if desired by Dr. Shay. Further recommendations to follow. MMODL / IJN: [id number] / LAURA
--- NOTE | 2022-07-27 05:37 | DS ---
DISCHARGE SUMMARY FINAL DIAGNOSES: 1. Abdominal pain, rule out intraabdominal abscess. 2. Increased WBC. 3. History of recent hysterectomy. 4. History of asthma. 5. Multiple medical issues. DISCHARGE DISPOSITION: The patient left the hospital against medical advice. HISTORY OF PRESENT ILLNESS: This is a 31-year-old woman who was admitted with past medical history of multiple medical illnesses including abdominal pain and intraabdominal abscess considered, seen by [facility], Infectious Disease, but however the patient left the hospital against medical advice before the workup was completed. Prognosis extremely guarded. Please refer to the multiple progress notes and consultation notes and staff notes for further information. MMODL / IJN: [id number] /
--- NOTE | 2022-08-01 12:13 | P.PN ---
Subjective Progress Note Date: 07/25/22 Principal diagnosis: Intra-abdominal abscess Patient is a 31 -year-old female status post laparoscopic hysterectomy completed on 07/13/2022 presented to the hospital with abdominal pain patient had did have elevated white count and see abdominal pelvis was suspicious for possible abscess versus seroma. On today's evaluation that is 07/25/2022 patient denies having any fever or chills, sick, Abdominal pain however has slightly decreased in density and did have a small bowel movement no nausea no vomiting no chest pain shortness of breath or cough Objective - Vital Signs Vital signs: Vital Signs Temp 98.1 F 07/25/22 11:10 Pulse 103 H 07/25/22 11:10 Resp 20 07/25/22 11:10 BP 119/77 07/25/22 11:10 Pulse Ox 100 07/25/22 11:10 FiO2 Intake & Output 07/24/22 07/25/22 07/25/22 18:59 06:59 18:59 Intake Total 500 Balance 500 Weight 45.359 kg Intake: Oral 500 Other: Voiding Method Toilet Toilet # Voids 1 2 - Exam GENERAL DESCRIPTION: Middle-aged female lying in bed in no distress RESPIRATORY SYSTEM: Unlabored breathing , decreased breath sounds at bases HEART: S1 S2 regular rate and rhythm , ABDOMEN: Soft , mild tenderness EXTREMITIES: No edema feet - Labs CBC & Chem 7: 07/25/22 05:48 07/25/22 05:48 Labs: Abnormal Lab Results - Last 24 Hours (Table) 07/24/22 07/24/22 07/25/22 Range/Units 09:23 09:23 05:48 WBC 13.28 H (4.50-10.00) X 10*3/uL RBC 3.94 L (4.10-5.20) X 10*6/uL Hct 36.2 L (37.2-46.3) % Immature Gran # 0.06 H (0.00-0.04) X 10*3/uL Neutrophils # 9.85 H (1.80-7.70) X 10*3/uL ESR 31 H (0-20) mm/hr Anion Gap (10.00-18.00) mmol/L C-Reactive Protein 2.0 H (<1.0) mg/dL 07/25/22 Range/Units 05:48 WBC (4.50-10.00) X 10*3/uL RBC (4.10-5.20) X 10*6/uL Hct (37.2-46.3) % Immature Gran # (0.00-0.04) X 10*3/uL Neutrophils # (1.80-7.70) X 10*3/uL ESR (0-20) mm/hr Anion Gap 8.70 L (10.00-18.00) mmol/L C-Reactive Protein (<1.0) mg/dL Assessment and Plan (1) Intra-abdominal abscess Status: Acute Code(s): K65.1 - PERITONEAL ABSCESS SNOMED Code(s): 38121362 Plan: 1patient is a 31-year female with recent laparoscopic hysterectomy presented to hospital with abdominal pain patient did have abnormal CT with a 2.8 cm thin-walled fluid collection with question of possible seroma versus abscess patient not running any fever however did have elevated white count. 2CT was reviewed with radiologist and apparently there are bowel loops around that fluid collection and cannot be drained CT-guided. 3patient to continue with Zosyn while waiting for the cultures to finalize Time with Patient: Less than 30
== END 2022-07-25 17:15 | disposition left against medical advice (07) | DRG 392 ==
LOC: EC 08:45 → 5NMEDONC 11:48
PROVIDERS: ADMIT Internal Medicine; ATTEND Internal Medicine
DX: R10.30 Lower abdominal pain, unspecified (principal); Z53.29 Procedure and treatment not carried out because of patient's decision for other reasons; F17.210 Nicotine dependence, cigarettes, uncomplicated; A60.00 Herpesviral infection of urogenital system, unspecified; F31.9 Bipolar disorder, unspecified; K59.00 Constipation, unspecified; J45.909 Unspecified asthma, uncomplicated; Z63.72 Alcoholism and drug addiction in family; Z82.5 Family history of asthma and other chronic lower respiratory diseases; Z87.442 Personal history of urinary calculi; Z90.710 Acquired absence of both cervix and uterus; Z95.0 Presence of cardiac pacemaker; Z88.1 Allergy status to other antibiotic agents; Z88.8 Allergy status to other drugs, medicaments and biological substances; F41.9 Anxiety disorder, unspecified
CPT/HCPCS: 36415; 74177; 80048; 80053; 81003; 83605; 83690; 85025; 85652; 86140; 87040; 96361; 96365; 96375; 99285

== ENCOUNTER → 2022-08-11 | Outpatient (CLI) | payer MEDICARE, OTHER ==
--- NOTE | 2022-08-11 09:15 | US ---
EXAMINATION TYPE: US abdomen complete DATE OF EXAM: 08/11/2022 COMPARISON: CLINICAL HISTORY: R10.84 ABD PAIN. Partial hysterectomy in 06/2022. Ab[address] CT findings. TECHNIQUE: Multiple sonographic images of the abdomen are obtained. FINDINGS: EXAM MEASUREMENTS: Liver Length: 14.1 cm Gallbladder Wall: 0.1 cm CBD: 0.4 cm Spleen: 9.0 cm Right Kidney: 10.4 x 4.3 x 3.8 cm Left Kidney: 10.2 x 5.0 x 5.0 cm Pancreas: wnl Liver: wnl Gallbladder: wnl Evidence for sonographic Lewis's sign: neg CBD: wnl Spleen: wnl Right Kidney: lateral mid complex cyst= 1.2 x 1.2 x 1.3 cm Left Kidney: No hydronephrosis or masses seen Upper IVC: wnl Abd Aorta: No AAA visualized at time of scan. IMPRESSION: 1. No evidence for acute process 2. Right renal cyst complex cyst with thin septation. 3. Left renal calculus.
== END | disposition home or self-care (01) ==
LOC: RADUSWWP 07:50
PROVIDERS: ATTEND Family Medicine
DX: N28.1 Cyst of kidney, acquired (principal); N20.0 Calculus of kidney
CPT/HCPCS: 76700

== ENCOUNTER 2022-08-20 03:32 | Observation (INO) | payer MEDICARE, OTHER ==
--- NOTE | 2022-08-20 03:49 | ED ---
Abdominal Pain HPI - General Chief Complaint: Abdominal Pain Stated Complaint: Abdominal Pain Time Seen by Provider: 08/20/22 03:41 Source: patient, RN notes reviewed, old records reviewed Mode of arrival: ambulatory Limitations: no limitations - History of Present Illness Initial Comments: This is a 32-year-old female DF for evaluation she presents today for evaluation of severe abdominal pain weakness bodyaches body aches and pains chills this started yesterday progressively worsening until tonight she could not get out of bed the pain was so bad she presents for evaluation of this pain. Complex recent medical history includes hysterectomy for bleeding and prophylaxis as well as possible abscess after hysterectomy. Patient has no known fevers no diarrhea she has nauseous no vomiting. No other surgical history patient has some history of depression and anxiety but no other real significant medical history. MD Complaint: abdominal pain -: days(s) Location: suprapubic Radiation: suprapubic Migration to: no migration Severity: moderate Severity scale (1-10): 4 Quality: cramping, stabbing, aching, sharp Consistency: constant, intermittent Worsens With: nothing Context: recent surgery/procedure (Hysterectomy 1 month ago) Associated Symptoms: nausea Treatments Prior to Arrival: other (0) - Related Data Home Medications Medication Instructions Recorded Confirmed Ivabradine HCl [Corlanor] 5 mg PO BID 08/25/19 08/20/22 clonazePAM [KlonoPIN] 0.5 mg PO Q8H PRN 07/10/22 08/20/22 HYDROcodone/APAP 7.5-325MG [[place] 1 tab PO Q4-6H PRN 07/24/22 08/20/22 7.5-325] Ibuprofen [Motrin] 600 mg PO Q6H PRN 07/24/22 08/20/22 Magnesium Oxide [Mag-Ox] 400 mg PO BID 07/24/22 08/20/22 Nicotine 21Mg/24Hr Patch [Habitrol] 1 patch TRANSDERM DAILY PRN 07/24/22 08/20/22 Simethicone [Gas-X] 125 mg PO DAILY PRN 07/24/22 08/20/22 Allergies Allergy/AdvReac Type Severity Reaction Status Date / Time Beta-Blockers Allergy Dyspnea/Increased Verified 08/20/22 12:27 (Beta-Adrenergic Bloc Heart Rate/Fatigue vancomycin Allergy Itching Verified 08/20/22 12:27 albuterol AdvReac INCREASED Verified 08/20/22 12:27 HEART RATE oxycodone [From Percocet] AdvReac AGITATION Verified 08/20/22 12:27 varenicline [From Chantix] AdvReac AGITATION/A Verified 08/20/22 12:27 GGRESSION Review of Systems ROS Statement: Those systems with pertinent positive or pertinent negative responses have been documented in the HPI. ROS Other: All systems not noted in ROS Statement are negative. Past Medical History Past Medical History: Asthma Additional Past Medical History / Comment(s): Herpes Genitalis, kidney stones, tachycardia, bradycardia History of Any Multi-Drug Resistant Organisms: None Reported Past Surgical History: Hysterectomy, Pacemaker Additional Past Surgical History / Comment(s): tachycardia Past Anesthesia/Blood Transfusion Reactions: No Reported Reaction Type of Cardiac Device: Permanent Pacemaker Device Placement Date:: 2015 Past Psychological History: Anxiety, Bipolar, Depression Smoking Status: Current every day smoker Past Alcohol Use History: Occasional Past Drug Use History: None Reported - Past Family History Mother Family Medical History: No Reported History, Asthma, Cancer, COPD Additional Family Medical History / Comment(s): drug addict, bipolar, cervical cancer Father Family Medical History: Congestive Heart Failure (CHF), COPD General Exam Limitations: no limitations General appearance: alert, in no apparent distress, anxious Head exam: Present: atraumatic, normocephalic, normal inspection Eye exam: Present: normal appearance, PERRL, EOMI. Absent: scleral icterus, conjunctival injection, periorbital swelling ENT exam: Present: normal exam, mucous membranes moist Neck exam: Present: normal inspection. Absent: tenderness, meningismus, lymphadenopathy Respiratory exam: Present: normal lung sounds bilaterally. Absent: respiratory distress, wheezes, rales, rhonchi, stridor Cardiovascular Exam: Present: normal rhythm, tachycardia, normal heart sounds. Absent: systolic murmur, diastolic murmur, rubs, gallop, clicks GI/Abdominal exam: Present: soft, tenderness, guarding, normal bowel sounds. Absent: distended, rebound, rigid Extremities exam: Present: normal inspection, full ROM, normal capillary refill. Absent: tenderness, pedal edema, joint swelling, calf tenderness Back exam: Present: normal inspection Neurological exam: Present: alert, oriented X3, CN II-XII intact Psychiatric exam: Present: normal affect, normal mood Skin exam: Present: warm, dry, intact, normal color. Absent: rash Course Vital Signs 08/20/22 08/20/22 03:33 07:51 Temperature 98 F Pulse Rate 116 H 60 Respiratory 20 16 Rate Blood Pressure 123/72 103/55 O2 Sat by Pulse 98 98 Oximetry - Reevaluation(s) Reevaluation #1: 08/20/22 07:00 [facility] record is reviewed Reevaluation #2: 08/20/22 07:00 Patient's pain is improved Medical Decision Making - Medical Decision Making 32-year-old female History female with persistent abdominal pain. Possible remote history of pelvic abscess, patient does have severely increased white count from last evaluation. Computed tomography scan remains negative here in the ER patient be admitted for further evaluation of severe pain - Lab Data Result diagrams: 08/20/22 04:29 08/20/22 04:29 Lab Results 08/20/22 08/20/22 08/20/22 Range/Units 04:29 04:29 04:29 WBC 23.2 H (3.8-10.6) k/uL RBC 4.55 (3.80-5.40) m/uL Hgb 14.1 (11.4-16.0) gm/dL Hct 41.2 (34.0-46.0) % MCV 90.6 (80.0-100.0) fL MCH 31.1 (25.0-35.0) pg MCHC 34.3 (31.0-37.0) g/dL RDW 12.1 (11.5-15.5) % Plt Count 217 (150-450) k/uL MPV 9.2 Neutrophils % 87 % Lymphocytes % 8 % Monocytes % 3 % Eosinophils % 1 % Basophils % 0 % Neutrophils # 20.2 H (1.3-7.7) k/uL Lymphocytes # 2.0 (1.0-4.8) k/uL Monocytes # 0.7 (0-1.0) k/uL Eosinophils # 0.2 (0-0.7) k/uL Basophils # 0.1 (0-0.2) k/uL PT (9.0-12.0) sec INR (<1.2) APTT (22.0-30.0) sec Sodium 136 L (137-145) mmol/L Potassium 4.2 (3.5-5.1) mmol/L Chloride 103 (98-107) mmol/L Carbon Dioxide 19 L (22-30) mmol/L Anion Gap 14 mmol/L BUN 11 (7-17) mg/dL Creatinine 0.71 (0.52-1.04) mg/dL Est GFR (CKD-EPI)AfAm >90 (>60 ml/min/1.73 sqM) Est GFR (CKD-EPI)NonAf >90 (>60 ml/min/1.73 sqM) Glucose 87 (74-99) mg/dL Plasma Lactic Acid Harry 1.1 (0.7-2.0) mmol/L Calcium 9.8 (8.4-10.2) mg/dL Phosphorus 3.2 (2.5-4.5) mg/dL Magnesium 1.7 (1.6-2.3) mg/dL Total Bilirubin 3.3 H (0.2-1.3) mg/dL AST 25 (14-36) U/L ALT 15 (4-34) U/L Alkaline Phosphatase 98 (38-126) U/L Total Protein 7.5 (6.3-8.2) g/dL Albumin 4.8 (3.5-5.0) g/dL Amylase 39 (30-110) U/L Lipase 49 (23-300) U/L 08/20/22 Range/Units 04:29 WBC (3.8-10.6) k/uL RBC (3.80-5.40) m/uL Hgb (11.4-16.0) gm/dL Hct (34.0-46.0) % MCV (80.0-100.0) fL MCH (25.0-35.0) pg MCHC (31.0-37.0) g/dL RDW (11.5-15.5) % Plt Count (150-450) k/uL MPV Neutrophils % % Lymphocytes % % Monocytes % % Eosinophils % % Basophils % % Neutrophils # (1.3-7.7) k/uL Lymphocytes # (1.0-4.8) k/uL Monocytes # (0-1.0) k/uL Eosinophils # (0-0.7) k/uL Basophils # (0-0.2) k/uL PT 11.7 (9.0-12.0) sec INR 1.1 (<1.2) APTT 26.1 (22.0-30.0) sec Sodium (137-145) mmol/L Potassium (3.5-5.1) mmol/L Chloride (98-107) mmol/L Carbon Dioxide (22-30) mmol/L Anion Gap mmol/L BUN (7-17) mg/dL Creatinine (0.52-1.04) mg/dL Est GFR (CKD-EPI)AfAm (>60 ml/min/1.73 sqM) Est GFR (CKD-EPI)NonAf (>60 ml/min/1.73 sqM) Glucose (74-99) mg/dL Plasma Lactic Acid Harry (0.7-2.0) mmol/L Calcium (8.4-10.2) mg/dL Phosphorus (2.5-4.5) mg/dL Magnesium (1.6-2.3) mg/dL Total Bilirubin (0.2-1.3) mg/dL AST (14-36) U/L ALT (4-34) U/L Alkaline Phosphatase (38-126) U/L Total Protein (6.3-8.2) g/dL Albumin (3.5-5.0) g/dL Amylase (30-110) U/L Lipase (23-300) U/L - Radiology Data Radiology results: report reviewed (CT of the abdomen and pelvis negative for acute disease, chest x-rays negative), image reviewed Disposition Clinical Impression: History of robot-assisted laparoscopic hysterectomy, Abdominal pain, Colicky abdominal pain, Leukocytosis, Ovarian cyst Disposition: ADMITTED IP TO THIS HOSP Condition: Fair Is patient prescribed a controlled substance at d/c from ED?: No Time of Disposition: 07:00
[2022-08-20] MEDS ORDERED: PANTOPRAZOLE 40 MG/10 ML VIAL IVP STA (04:12)
[2022-08-20] MEDS ORDERED: SODIUM CHLORIDE 0.9% 500 ML 500 ML IV STA (04:12)
[2022-08-20] MEDS ORDERED: SODIUM CHLORIDE 0.9% 1,000 ML IV STA ×2 (04:12)
[2022-08-20] MEDS ORDERED: MORPHINE SULFATE 4 MG/ML SYRINGE IV STA (04:12)
[2022-08-20] MEDS ORDERED: PROCHLORPERAZINE INJ 10 MG/2 ML VIAL IVP STA (04:13)
[2022-08-20] MEDS ORDERED: DICYCLOMINE 10 MG/ML 2 ML AMP IM STA (04:13)
[2022-08-20 05:32] LABS: Basophils # (A) 0.1 k/uL (0-0.2); Basophils % (A) 0 %; Eosinophils # (A) 0.2 k/uL (0-0.7); Eosinophils % (A) 1 %; HCT 41.2 % (34.0-46.0); HGB 14.1 gm/dL (11.4-16.0); Lymphocytes % (A) 8 %; MCH 31.1 pg (25.0-35.0); MCHC 34.3 g/dL (31.0-37.0); MCV 90.6 fL (80.0-100.0); Mean Platelet Volume 9.2; Monocytes # (A) 0.7 k/uL (0-1.0); Monocytes % (A) 3 %; Neutrophils # (A) 20.2 k/uL (1.3-7.7); Neutrophils % (A) 87 %; Platelet Count 217 k/uL (150-450); RBC 4.55 m/uL (3.80-5.40); RDW 12.1 % (11.5-15.5); WBC 23.2 k/uL (3.8-10.6)
[2022-08-20 05:43] LABS: INR 1.1 (<1.2); Partial Thromboplastin Time 26.1 sec (22.0-30.0); Prothrombin Time 11.7 sec (9.0-12.0)
[2022-08-20 05:47] LABS: ALT 15 U/L (4-34); AST 25 U/L (14-36); African American GFR (CKD) >90 (>60 ml/min/1.73 sqM); Albumin 4.8 g/dL (3.5-5.0); Alkaline Phosphatase 98 U/L (38-126); Amylase 39 U/L (30-110); Anion Gap 14 mmol/L; Blood Urea Nitrogen 11 mg/dL (7-17); Calcium 9.8 mg/dL (8.4-10.2); Carbon Dioxide 19 mmol/L (22-30); Chloride 103 mmol/L (98-107); Glucose 87 mg/dL (74-99); Lipase 49 U/L (23-300); Magnesium 1.7 mg/dL (1.6-2.3); Non-African American GFR(CKD) >90 (>60 ml/min/1.73 sqM); Phosphorus 3.2 mg/dL (2.5-4.5); Sodium 136 mmol/L (137-145); Total Bilirubin 3.3 mg/dL (0.2-1.3); Total Protein 7.5 g/dL (6.3-8.2)
[2022-08-20 06:05] LABS: Potassium 4.2 mmol/L (3.5-5.1)
[2022-08-20] MEDS ORDERED: AMPICILLIN-SULBACTAM 3 GM in SODIUM CHLORIDE 0.9% 100 ML IVPB STA (06:19)
--- NOTE | 2022-08-20 06:29 | CT ---
EXAMINATION TYPE: CT abdomen pelvis w con DATE OF EXAM: 08/20/2022 COMPARISON: 07/24/2022 HISTORY: abd pain below umbilical into back, vomiting CT DLP: 389.1 mGycm Automated exposure control for dose reduction was used. CONTRAST: Performed with IV Contrast, patient injected with 100 mL of Isovue 300. Lung bases are clear. No pleural effusion. Heart size is normal. No pericardial effusion. The liver a nd spleen are intact. The bile ducts are nondilated. No pancreatic mass. Gallbladder appears normal. The stomach is intact. A small amount of contrast in the bowel. There is no adrenal mass. Kidneys show satisfactory contrast opacification. No hydronephrosis. There is 1.5 cm cortical cyst lateral right kidney. Delayed images show normal renal excretion. No retroper itoneal adenopathy. The bladder distends smoothly. There is surgical clips in the midline pelvis. The re is hysterectomy. There is 3.2 cm cyst on the left ovary. There is no mesenteric edema. No ascites or free air. No sign of a bowel obstruction. The lumbar vert ebrae have normal alignment. Posterior element are intact. No compression fracture. Bony pelvis is in tact. The hip joints are intact. IMPRESSION: Left ovarian cyst. Cyst is increased slightly compared to the old exam. There is clearing of a 3 cm r ight-sided ovarian cyst compared to the old exam.
[2022-08-20] MEDS ORDERED: KETOROLAC 15 MG/ML 1 ML VIAL IVP STA (06:57)
[2022-08-20] MEDS ORDERED: ACETAMINOPHEN IV (For NPO) 650 MG in EMPTY BAG 1 BAG IVPB STA ×2 (06:57→07:24)
[2022-08-20] MEDS ORDERED: MORPHINE SULFATE 4 MG/ML SYRINGE IV PRN (07:02)
[2022-08-20] MEDS ORDERED: NALOXONE 0.4 MG/ML 1 ML VIAL IV PRN (07:02)
[2022-08-20] MEDS ORDERED: ONDANSETRON 4 MG/2 ML VIAL IVP PRN (07:02)
[2022-08-20] MEDS: SODIUM CHLORIDE 0.9% 1,000 ML IV SCH ×2 (07:21→14:44)
--- NOTE | 2022-08-20 08:21 | XR ---
EXAMINATION TYPE: XR chest 1V portable DATE OF EXAM: 08/20/2022 COMPARISON: 10/05/2020 INDICATION: Pain TECHNIQUE: Single frontal view of the chest is obtained. FINDINGS: The heart size is normal. Pacemaker overlies the left chest. The pulmonary vasculature is normal. The lungs are clear. IMPRESSION: 1. No acute pulmonary process.
[2022-08-20 09:44] LABS: Appearance,Urine Clear (Clear); Bilirubin,Urine Negative (Negative); Blood,Urine Moderate (Negative); Color,Urine Yellow; Glucose,Urine (UA) Negative (Negative); Ketones,Urine 1+ (Negative); Leukocyte Esterase,Urine Moderate (Negative); Mucus,Urine Rare /hpf; Nitrite,Urine Negative (Negative); Protein,Urine Trace (Negative); RBC,Urine 1 /hpf (0-5); Specific Gravity,Urine >1.050 (1.001-1.035); Squamous Epithelial Cell,Urine 3 /hpf (0-4); Urobilinogen,Urine <2.0 mg/dL (<2.0); WBC,Urine 36 /hpf (0-5)
[2022-08-20] MEDS: ACETAMINOPHEN TAB 325 MG TAB PO PRN (11:34)
--- NOTE | 2022-08-20 12:03 | P.GSCN ---
History of Present Illness Consult date: 08/20/22 History of present illness: 32-year-old female is admitted secondary to abdominal pain. She states that she began having abdominal pain in early June and has had multiple ER visits since that time. Since that time, she also has undergone a robotic hysterectomy by [facility] [employer]. She states that she has been diagnosed with endometriosis. She states that the abdominal pain episodes have been on and off and every few weeks they have become quite severe. She states that she believes her bowel movements have been abnormal with both diarrhea and constipation. She states that she has been tried on a bowel regimen after her recent hysterectomy that could have altered her bowels as well. She denies ever having any evaluation by gastroenterology and she has never had any endoscopy. CT of the abdomen and pelvis was performed that shows ovarian cyst, however no intra-abdominal fluid or inflammatory changes. She states that since her arrival to the emergency department that there is been significant improvement in her abdominal pain. She denies any nausea or vomiting. She does have significant leukocytosis of 23. Review of Systems All systems: negative Past Medical History Past Medical History: Asthma Additional Past Medical History / Comment(s): Herpes Genitalis, kidney stones, tachycardia, bradycardia History of Any Multi-Drug Resistant Organisms: None Reported Past Surgical History: Hysterectomy, Pacemaker Additional Past Surgical History / Comment(s): tachycardia Past Anesthesia/Blood Transfusion Reactions: No Reported Reaction Type of Cardiac Device: Permanent Pacemaker Device Placement Date:: 2015 Past Psychological History: Anxiety, Bipolar, Depression Additional Psychological History / Comment(s): patient smokes marijuana daily, ocasional alcohol Smoking Status: Current every day smoker Past Alcohol Use History: Occasional Past Drug Use History: None Reported Additional Drug Use History / Comment(s): pt refused how to quit packet - Past Family History Mother Family Medical History: No Reported History, Asthma, Cancer, COPD Additional Family Medical History / Comment(s): drug addict, bipolar, cervical cancer Father Family Medical History: Congestive Heart Failure (CHF), COPD Medications and Allergies Home Medications Medication Instructions Recorded Confirmed Type Ivabradine HCl [Corlanor] 5 mg PO BID 08/25/19 07/24/22 History clonazePAM [KlonoPIN] 0.5 mg PO Q8H PRN 07/10/22 07/24/22 History HYDROcodone/APAP 7.5-325MG [[place] 1 tab PO Q4-6H PRN 07/24/22 07/24/22 History 7.5-325] Ibuprofen [Motrin] 600 mg PO Q6H PRN 07/24/22 07/24/22 History Magnesium Oxide [Mag-Ox] 400 mg PO BID 07/24/22 07/24/22 History Nicotine 21Mg/24Hr Patch [Habitrol] 1 patch TRANSDERM DAILY PRN 07/24/22 07/24/22 History Simethicone [Gas-X] 125 mg PO DAILY PRN 07/24/22 07/24/22 History Allergies Allergy/AdvReac Type Severity Reaction Status Date / Time Beta-Blockers Allergy Dyspnea/Increased Verified 07/24/22 10:55 (Beta-Adrenergic Bloc Heart Rate/Fatigue vancomycin Allergy Itching Verified 07/24/22 12:14 albuterol AdvReac INCREASED Verified 07/24/22 10:55 HEART RATE oxycodone [From Percocet] AdvReac AGITATION Verified 07/24/22 10:55 varenicline [From Chantix] AdvReac AGITATION/A Verified 07/24/22 10:55 GGRESSION Surgical - Exam Osteopathic Statement: *. No significant issues noted on an osteopathic structural exam other than those noted in the History and Physical/Consult. Vital Signs Temp Pulse Resp BP Pulse Ox 98 F 116 H 20 123/72 98 08/20/22 03:33 08/20/22 03:33 08/20/22 03:33 08/20/22 03:33 08/20/22 03:33 - General no distress - Eyes normal ocular movement - Neck trachea midline - Respiratory normal respiratory effort - Abdomen Soft, mild tenderness to palpation in the right lower quadrant, no significant tenderness to percussion, no rebound, no guarding, incision sites from recent procedure appeared to be healing well - Psychiatric oriented to time, oriented to person, oriented to place Results - Labs 08/20/22 04:29 08/20/22 04:29 Abnormal Lab Results - Last 24 Hours (Table) 08/20/22 08/20/22 08/20/22 Range/Units 04:29 04:29 09:25 WBC 23.2 H (3.8-10.6) k/uL Neutrophils # 20.2 H (1.3-7.7) k/uL Sodium 136 L (137-145) mmol/L Carbon Dioxide 19 L (22-30) mmol/L Total Bilirubin 3.3 H (0.2-1.3) mg/dL Ur Specific [place] >1.050 H (1.001-1.035) Urine Protein Trace H (Negative) Urine Ketones 1+ H (Negative) Urine Blood Moderate H (Negative) Ur Leukocyte Esterase Moderate H (Negative) Urine WBC 36 H (0-5) /hpf Urine Mucus Rare H (None) /hpf Diabetes panel 08/20/22 Range/Units 04:29 Sodium 136 L (137-145) mmol/L Potassium 4.2 (3.5-5.1) mmol/L Chloride 103 (98-107) mmol/L Carbon Dioxide 19 L (22-30) mmol/L BUN 11 (7-17) mg/dL Creatinine 0.71 (0.52-1.04) mg/dL Glucose 87 (74-99) mg/dL Calcium 9.8 (8.4-10.2) mg/dL AST 25 (14-36) U/L ALT 15 (4-34) U/L Alkaline Phosphatase 98 (38-126) U/L Total Protein 7.5 (6.3-8.2) g/dL Albumin 4.8 (3.5-5.0) g/dL Calcium panel 08/20/22 Range/Units 04:29 Calcium 9.8 (8.4-10.2) mg/dL Phosphorus 3.2 (2.5-4.5) mg/dL Albumin 4.8 (3.5-5.0) g/dL Pituitary panel 08/20/22 Range/Units 04:29 Sodium 136 L (137-145) mmol/L Potassium 4.2 (3.5-5.1) mmol/L Chloride 103 (98-107) mmol/L Carbon Dioxide 19 L (22-30) mmol/L BUN 11 (7-17) mg/dL Creatinine 0.71 (0.52-1.04) mg/dL Glucose 87 (74-99) mg/dL Calcium 9.8 (8.4-10.2) mg/dL Adrenal panel 08/20/22 Range/Units 04:29 Sodium 136 L (137-145) mmol/L Potassium 4.2 (3.5-5.1) mmol/L Chloride 103 (98-107) mmol/L Carbon Dioxide 19 L (22-30) mmol/L BUN 11 (7-17) mg/dL Creatinine 0.71 (0.52-1.04) mg/dL Glucose 87 (74-99) mg/dL Calcium 9.8 (8.4-10.2) mg/dL Total Bilirubin 3.3 H (0.2-1.3) mg/dL AST 25 (14-36) U/L ALT 15 (4-34) U/L Alkaline Phosphatase 98 (38-126) U/L Total Protein 7.5 (6.3-8.2) g/dL Albumin 4.8 (3.5-5.0) g/dL Assessment and Plan Plan: 32-year-old female with abdominal pain and leukocytosis. Currently, on evaluation of clinical status and imaging, there does not appear to be a surgical cause of the abdominal pain. Although there was concern for patient to have an intra-abdominal abscess during previous emergency department visit, on current CT there does not appear to be any fluid collection patient's abdominal pain is also improving. UA revealed moderate leukocyte esterase and urine WBCs, leukocytosis could be associated with this. The patient also stated that she is scheduled to have an evaluation by gastroenterology as an outpatient and is sche duled for colonoscopy. At this point, there is no plan for acute surgical intervention. She is awaiting evaluation by [employer] [facility]. Further recommendations to be made based on patient's clinical progress.
--- NOTE | 2022-08-20 13:23 | P.HPIM ---
History of Present Illness 32-year-old [place] female admitted for abdominal pain with chest is CVS sharp in nature which improved significantly compared to yesterday started in the right suprapubic area radiating up to the. faheem umblical and supraumbilical areas on the left side. Patient had a CT of the abdomen and pelvis which showed ovarian cyst may be a ruptured ovarian cyst. Patient does have history of endometriosis in the past patient had a robotic hysterectomy in the past after she had abortions and vaginal bleeds in the past. Patient is receiving for nausea vomiting have been significant improved compared to yesterday. Patient is bit tachycardic does have leukocytosis doesn't have any fever. General surgery evaluated the patient is no further recommendations from them gynecology will evaluate the patient later today. REVIEW OF SYSTEMS: CONSTITUTIONAL: No fever, no malaise, no fatigue. HEENT: No recent visual problems or hearing problems. Denied any sore throat. CARDIOVASCULAR: No chest pain, orthopnea, PND, no palpitations, no syncope. PULMONARY: No shortness of breath, no cough, no hemoptysis. GASTROINTESTINAL: As mentioned in HPI NEUROLOGICAL: No headaches, no weakness, no numbness. HEMATOLOGICAL: Denies any bleeding or petechiae. GENITOURINARY: Denies any burning micturition, frequency, or urgency. MUSCULOSKELETAL/RHEUMATOLOGICAL: Denies any joint pain, swelling, or any muscle pain. ENDOCRINE: Denies any polyuria or polydipsia. The rest of the 14-point review of systems is negative. PHYSICAL EXAMINATION: GENERAL: The patient is alert and oriented x3, not in any acute distress. Well developed, well nourished. HEENT: Pupils are round and equally reacting to light. EOMI. No scleral icterus. No conjunctival pallor. Normocephalic, atraumatic. No pharyngeal erythema. No thyromegaly. CARDIOVASCULAR: S1 and S2 present. No murmurs, rubs, or gallops. PULMONARY: Chest is clear to auscultation, no wheezing or crackles. ABDOMEN: Soft, mild tenderness in the right lower quadrant, nondistended, no rmoactive bowel sounds. No palpable organomegaly. MUSCULOSKELETAL: No joint swelling or deformity. EXTREMITIES: No cyanosis, clubbing, or pedal edema. NEUROLOGICAL: Gross neurological examination did not reveal any focal deficits. SKIN: No rashes. Assessment and plan -Abdominal pain: Etiology is not clear can be ruptured ovarian cyst or endometriosis, [employer] will evaluate the patient. Continue with present medications pain medications including Tylenol, tramadol, if needed morphine. -Leukocytosis reactive in nature no evidence of infection at this time will monitor and repeat CBC tomorrow -Asymptomatic bacteriuria will not require any antibiotics at this time, patient received a dose of antibiotic in ER -Asthma without any acute exacerbation Tachycardia secondary to pain DVT prophylaxis: Ambulation Past Medical History Past Medical History: Asthma Additional Past Medical History / Comment(s): Herpes Genitalis, kidney stones, tachycardia, bradycardia History of Any Multi-Drug Resistant Organisms: None Reported Past Surgical History: Hysterectomy, Pacemaker Additional Past Surgical History / Comment(s): tachycardia Past Anesthesia/Blood Transfusion Reactions: No Reported Reaction Type of Cardiac Device: Permanent Pacemaker Device Placement Date:: 2015 Past Psychological History: Anxiety, Bipolar, Depression Additional Psychological History / Comment(s): patient smokes marijuana daily, ocasional alcohol Smoking Status: Current every day smoker Past Alcohol Use History: Occasional Past Drug Use History: None Reported Additional Drug Use History / Comment(s): pt refused how to quit packet - Past Family History Mother Family Medical History: No Reported History, Asthma, Cancer, COPD Additional Family Medical History / Comment(s): drug addict, bipolar, cervical cancer Father Family Medical History: Congestive Heart Failure (CHF), COPD Medications and Allergies Home Medications Medication Instructions Recorded Confirmed Type Ivabradine HCl [Corlanor] 5 mg PO BID 08/25/19 08/20/22 History clonazePAM [KlonoPIN] 0.5 mg PO Q8H PRN 07/10/22 08/20/22 History HYDROcodone/APAP 7.5-325MG [[place] 1 tab PO Q4-6H PRN 07/24/22 08/20/22 History 7.5-325] Ibuprofen [Motrin] 600 mg PO Q6H PRN 07/24/22 08/20/22 History Magnesium Oxide [Mag-Ox] 400 mg PO BID 07/24/22 08/20/22 History Nicotine 21Mg/24Hr Patch [Habitrol] 1 patch TRANSDERM DAILY PRN 07/24/22 08/20/22 History Simethicone [Gas-X] 125 mg PO DAILY PRN 07/24/22 08/20/22 History Allergies Allergy/AdvReac Type Severity Reaction Status Date / Time Beta-Blockers Allergy Dyspnea/Increased Verified 08/20/22 12:27 (Beta-Adrenergic Bloc Heart Rate/Fatigue vancomycin Allergy Itching Verified 08/20/22 12:27 albuterol AdvReac INCREASED Verified 08/20/22 12:27 HEART RATE oxycodone [From Percocet] AdvReac AGITATION Verified 08/20/22 12:27 varenicline [From Chantix] AdvReac AGITATION/A Verified 08/20/22 12:27 GGRESSION Physical Exam Vitals: Vital Signs Temp Pulse Pulse Resp BP BP Pulse Ox 08/20/22 09:45 97.6 F 112 H 16 102/69 99 08/20/22 07:51 60 16 103/55 98 08/20/22 03:33 98 F 116 H 20 123/72 98 Intake and Output 08/19/22 08/20/22 08/20/22 22:59 06:59 14:59 Other: # Voids 1 Weight 45.359 kg 45.359 kg Results CBC & Chem 7: 08/20/22 04:29 08/20/22 04:29 Labs: Abnormal Lab Results - Last 24 Hours (Table) 08/20/22 08/20/22 08/20/22 Range/Units 04:29 04:29 09:25 WBC 23.2 H (3.8-10.6) k/uL Neutrophils # 20.2 H (1.3-7.7) k/uL Sodium 136 L (137-145) mmol/L Carbon Dioxide 19 L (22-30) mmol/L Total Bilirubin 3.3 H (0.2-1.3) mg/dL Ur Specific [place] >1.050 H (1.001-1.035) Urine Protein Trace H (Negative) Urine Ketones 1+ H (Negative) Urine Blood Moderate H (Negative) Ur Leukocyte Esterase Moderate H (Negative) Urine WBC 36 H (0-5) /hpf Urine Mucus Rare H (None) /hpf Thrombosis Risk Factor Assmnt - Choose All That Apply Any of the Below Risk Factors Present?: Yes
[2022-08-20] MEDS: traMADol 50 MG TAB PO PRN (14:42)
--- NOTE | 2022-08-20 15:18 | P.OBCN ---
History of Present Illness Consult date: 08/20/22 Reason for consult: pelvic pain, ovarian cyst Chief complaint: pelvic and abdominal pain History of present illness: 32-year-old presents to the hospital complaining of abdominal pain. Patient had a total laparoscopic hysterectomy about 5 weeks ago. She had this pain a few days prior to the surgery as well with bowel movements. She then underwent a hysterectomy without complication. After this, she is admitted the hospital again a few weeks later for this abdominal pain and low pelvic pain. She did have a small fluid collection which has since resolved. There was a left ovarian cyst 1.8 cm that is now 3 cm. 3 cm ovarian cysts are unlikely to cause this kind of pain. This episode of pain started after the patient had anal intercourse yesterday. The pain is significantly improved now that it is s tarting to come back again after she ate some applesauce just now. This could be related to her endometriosis but since the pain is coming and going, diffuse, and changes areas in her abdomen, I think is more likely that this is gastrointestinal related. I would recommend a GI consult. She already has a appointment for outpatient follow-up with GI but since she's been admitted to the hospital a few times for this pain, it may be beneficial to have a consult done while she is inpatient. She does have a white count of 23 but is afebrile. She does have sweats and chills occasionally. Review of Systems All systems: negative Constitutional: Denies chills, Denies fever Eyes: denies blurred vision, denies pain Ears, nose, mouth and throat: Denies headache, Denies sore throat Cardiovascular: Denies chest pain, Denies shortness of breath Respiratory: Denies cough Gastrointestinal: Denies abdominal pain, Denies diarrhea, Denies nausea, Denies vomiting Genitourinary: Denies dysuria, Denies hematuria Musculoskeletal: Denies myalgias Integumentary: Denies pruritus, Denies rash Neurological: Denies numbness, Denies weakness Psychiatric: Denies anxiety, Denies depression Endocrine: Denies fatigue, Denies weight change Past Medical History Past Medical History: Asthma Additional Past Medical History / Comment(s): Herpes Genitalis, kidney stones, tachycardia, bradycardia History of Any Multi-Drug Resistant Organisms: None Reported Past Surgical History: Hysterectomy, Pacemaker Additional Past Surgical History / Comment(s): tachycardia Past Anesthesia/Blood Transfusion Reactions: No Reported Reaction Type of Cardiac Device: Permanent Pacemaker Device Placement Date:: 2015 Past Psychological History: Anxiety, Bipolar, Depression Additional Psychological History / Comment(s): patient smokes marijuana daily, ocasional alcohol Smoking Status: Current every day smoker Past Alcohol Use History: Occasional Past Drug Use History: None Reported Additional Drug Use History / Comment(s): pt refused how to quit packet - Past Family History Mother Family Medical History: No Reported History, Asthma, Cancer, COPD Additional Family Medical History / Comment(s): drug addict, bipolar, cervical cancer Father Family Medical History: Congestive Heart Failure (CHF), COPD Medications and Allergies Home Medications Medication Instructions Recorded Confirmed Type Ivabradine HCl [Corlanor] 5 mg PO BID 08/25/19 08/20/22 History clonazePAM [KlonoPIN] 0.5 mg PO Q8H PRN 07/10/22 08/20/22 History HYDROcodone/APAP 7.5-325MG [[place] 1 tab PO Q4-6H PRN 07/24/22 08/20/22 History 7.5-325] Ibuprofen [Motrin] 600 mg PO Q6H PRN 07/24/22 08/20/22 History Magnesium Oxide [Mag-Ox] 400 mg PO BID 07/24/22 08/20/22 History Nicotine 21Mg/24Hr Patch [Habitrol] 1 patch TRANSDERM DAILY PRN 07/24/22 08/20/22 History Simethicone [Gas-X] 125 mg PO DAILY PRN 07/24/22 08/20/22 History Allergies Allergy/AdvReac Type Severity Reaction Status Date / Time Beta-Blockers Allergy Dyspnea/Increased Verified 08/20/22 12:27 (Beta-Adrenergic Bloc Heart Rate/Fatigue vancomycin Allergy Itching Verified 08/20/22 12:27 albuterol AdvReac INCREASED Verified 08/20/22 12:27 HEART RATE oxycodone [From Percocet] AdvReac AGITATION Verified 08/20/22 12:27 varenicline [From Chantix] AdvReac AGITATION/A Verified 08/20/22 12:27 GGRESSION Exam Osteopathic Statement: *. No significant issues noted on an osteopathic structural exam other than those noted in the History and Physical/Consult. Vital Signs Temp Pulse Pulse Resp BP BP Pulse Ox 08/20/22 14:51 98.3 F 60 16 104/62 98 08/20/22 09:45 97.6 F 112 H 16 102/69 99 08/20/22 07:51 60 16 103/55 98 08/20/22 03:33 98 F 116 H 20 123/72 98 Intake and Output 08/20/22 08/20/22 08/20/22 06:59 14:59 22:59 Other: # Voids 1 Weight 45.359 kg 45.359 kg Heart: Regular rate and rhythm Lungs: Clear to auscultation bilaterally Abdomen: Soft, nondistended, Extremities: Negative Homans sign Results Result Diagrams: 08/20/22 04:29 08/20/22 04:29 Abnormal Lab Results - Last 24 Hours (Table) 08/20/22 08/20/22 08/20/22 Range/Units 04:29 04:29 09:25 WBC 23.2 H (3.8-10.6) k/uL Neutrophils # 20.2 H (1.3-7.7) k/uL Sodium 136 L (137-145) mmol/L Carbon Dioxide 19 L (22-30) mmol/L Total Bilirubin 3.3 H (0.2-1.3) mg/dL Ur Specific Premier >1.050 H (1.001-1.035) Urine Protein Trace H (Negative) Urine Ketones 1+ H (Negative) Urine Blood Moderate H (Negative) Ur Leukocyte Esterase Moderate H (Negative) Urine WBC 36 H (0-5) /hpf Urine Mucus Rare H (None) /hpf Assessment and Plan (1) History of robot-assisted laparoscopic hysterectomy Current Visit: Yes Status: Acute Code(s): Z90.710 - ACQUIRED ABSENCE OF BOTH CERVIX AND UTERUS SNOMED Code(s): 397702411 (2) Colicky abdominal pain Current Visit: Yes Status: Acute Code(s): R10.84 - GENERALIZED ABDOMINAL PAIN SNOMED Code(s): 36042916 Plan: 1. I would recommend a GI consult while the patient is in the hospital. 2. Plan to do a an ultrasound for resolution of the ovarian cyst and about 6 weeks.
[2022-08-20] MEDS ORDERED: SIMETHICONE 80 MG CHEWABLE PO PRN (16:24)
[2022-08-20] MEDS ORDERED: HYDROcodone/APAP 7.5-325MG 1 EACH TAB PO PRN (16:24)
[2022-08-20] MEDS: MAGNESIUM OXIDE 400 MG TAB PO SCH (19:44)
[2022-08-20] MEDS ORDERED: NON FORMULARY DRUG (Ivabradine Hcl [Corlanor] 5 MG Tablet) PO SCH (21:00)
[2022-08-20] MEDS: NON FORMULARY DRUG (Ivabradine Hcl [Corlanor] 5 MG Tablet) PO SCH (22:54)
[2022-08-21] MEDS: ACETAMINOPHEN TAB 325 MG TAB PO PRN (01:01)
[2022-08-21] MEDS: traMADol 50 MG TAB PO PRN ×3 (01:01→14:11)
[2022-08-21] MEDS: SODIUM CHLORIDE 0.9% 1,000 ML IV SCH ×2 (01:02→20:41)
[2022-08-21] MEDS: NON FORMULARY DRUG (Ivabradine Hcl [Corlanor] 5 MG Tablet) PO SCH ×2 (06:58→17:30)
[2022-08-21] MEDS: NICOTINE 21MG/24HR PATCH TRANSDERM SCH (07:40)
[2022-08-21] MEDS: MAGNESIUM OXIDE 400 MG TAB PO SCH ×2 (08:53→20:41)
[2022-08-21 09:35] LABS: African American GFR (CKD) 134.7 (60.0-200.0); Albumin 3.2 g/dL (3.8-4.9); Albumin/Globulin Ratio 1.78 (1.60-3.17); Anion Gap 5.3 mmol/L (10.00-18.00); BUN/Creat Ratio 11.86 Ratio (12.00-20.00); Blood Urea Nitrogen 8.3 mg/dL (9.0-27.0); Calcium 8.3 mg/dL (8.7-10.3); Carbon Dioxide 24.7 mmol/L (20.0-27.5); Globulin 1.8 g/dL (1.6-3.3); Non-African American GFR(CKD) 116.3 (60.0-200.0); Potassium 4.9 mmol/L (3.5-5.5); Total Bilirubin 0.9 mg/dL (0.30-1.20)
[2022-08-21 09:36] LABS: Basophils # (A) 0.01 X 10*3/uL (0.00-0.10); Basophils % (A) 0.1 %; Eosinophils % (A) 1.1 %; HCT 34.2 % (37.2-46.3); HGB 11.4 g/dL (12.0-15.0); Immature Grans, Automated 0.3 %; Lymphocytes # (A) 2.45 X 10*3/uL (0.90-5.00); Lymphocytes % (A) 25.9 %; MCH 31.7 pg (27.0-32.0); MCHC 33.3 g/dL (32.0-37.0); Mean Platelet Volume 12.4 fL (9.5-12.2); Monocytes # (A) 0.62 X 10*3/uL (0.20-1.00); Monocytes % (A) 6.6 %; NRBC Per 100 WBC 0 /100 WBCS (0.0-0.0); Neutrophils # (A) 6.24 X 10*3/uL (1.80-7.70); Platelet Count 161 X 10*3/uL (140-440); RDW 12.4 % (11.5-14.5); WBC 9.45 X 10*3/uL (4.50-10.00)
--- NOTE | 2022-08-21 11:00 | P.PN ---
Subjective Progress Note Date: 08/21/22 Patient seen and examined at bedside. States abdominal pain is improving. Denies nausea or vomiting. Tolerating diet. Objective - Vital Signs Vital signs: Vital Signs Temp 97.6 F 08/21/22 07:00 Pulse 69 08/21/22 07:00 Resp 14 08/21/22 07:00 BP 123/73 08/21/22 07:00 Pulse Ox 100 08/21/22 07:00 FiO2 Intake & Output 08/20/22 08/21/22 08/21/22 18:59 06:59 18:59 Intake Total 118 Balance 118 Weight 45.359 kg Intake: Oral 118 Other: Voiding Method Toilet # Voids 1 2 - Constitutional General appearance: Present: cooperative - Gastrointestinal Gastrointestinal Comment(s): Soft, nontender, nondistended, no rebound, no guarding - Psychiatric Psychiatric: Present: A&O x's 3 - Labs CBC & Chem 7: 08/21/22 05:36 08/21/22 05:36 Labs: Abnormal Lab Results - Last 24 Hours (Table) 08/21/22 08/21/22 Range/Units 05:36 05:36 RBC 3.60 L (4.10-5.20) X 10*6/uL Hgb 11.4 L (12.0-15.0) g/dL Hct 34.2 L (37.2-46.3) % MPV 12.4 H (9.5-12.2) fL Anion Gap 5.30 L (10.00-18.00) mmol/L BUN 8.3 L (9.0-27.0) mg/dL BUN/Creatinine Ratio 11.86 L (12.00-20.00) Ratio Calcium 8.3 L (8.7-10.3) mg/dL Total Protein 5.0 L (6.2-8.2) g/dL Albumin 3.2 L (3.8-4.9) g/dL Microbiology - Last 24 Hours (Table) 08/20/22 09:25 Urine Culture - Preliminary Urine,Voided Assessment and Plan Plan: 32-year-old female with generalized abdominal pain. This appears to be improving. There is no plan for any surgical intervention at this time. Recommend continued care with HOUSING GRANT ANALYST and GI.
[2022-08-21] MEDS: PANTOPRAZOLE 40 MG/10 ML VIAL IVP SCH ×2 (15:01→20:41)
[2022-08-21] MEDS: clonazePAM 0.5 MG TAB PO PRN (17:37)
--- NOTE | 2022-08-22 05:56 | P.PN ---
Subjective Progress Note Date: 08/21/22 32-year-old [place] female admitted for abdominal pain with chest is CVS sharp in nature which improved significantly compared to yesterday started in the right suprapubic area radiating up to the. faheem umblical and supraumbilical areas on the left side. Patient had a CT of the abdomen and pelvis which showed ovarian cyst may be a ruptured ovarian cyst. Patient does have history of endometriosis in the past patient had a robotic hysterectomy in the past after she had abortions and vaginal bleeds in the past. Patient is receiving for nausea vomiting have been significant improved compared to yesterday. Patient is bit tachycardic does have leukocytosis doesn't have any fever. General surgery evaluated the patient is no further recommendations from them gynecology will evaluate the patient later today. 08/21/2022 Patient is seen and evaluated in follow-up today and continues to report a bdominal pain that is intermittent. Patient is also reporting that after each time she eats is experiencing worsening pain and symptoms. Encouraged small frequent meals and water intake. Continued on pain management and instructed to limit the use of iv narcotics. General surgery and EXHIBITIONS AND COLLECTIONS MANAGER following with no plans for surgical intervention. GI consulted and pending at this time. Patient reports she is scheduled for colonoscopy in september. Encouraged increased activity as tolerated. WBC significantly improved. Review of systems: Constitutional: No reports of fatigue, fever, or chills Cardiovascular: No reports of chest pain or palpitations Respiratory: No reports of shortness of breath or cough GI: reports of nausea, no vomiting, or diarrhea, reports dark stool and pain after eating : No reports of dysuria or retention Neurovascular: No reports of weakness or numbness All medications have been reviewed PHYSICAL EXAMINATION: GENERAL: The patient is alert and oriented x3, not in any acute distress. Well developed, well nourished. HEENT: Pupils are round and equally reacting to light. EOMI. No scleral icterus. No conjunctival pallor. Normocephalic, atraumatic. No pharyngeal erythema. No thyromegaly. CARDIOVASCULAR: S1 and S2 present. No murmurs, rubs, or gallops. PULMONARY: Chest is clear to auscultation, no wheezing or crackles. ABDOMEN: Soft, mild tenderness in the right lower quadrant, nondistended, normoactive bowel sounds. No palpable organomegaly. MUSCULOSKELETAL: No joint swelling or deformity. EXTREMITIES: No cyanosis, clubbing, or pedal edema. NEUROLOGICAL: Gross neurological examination did not reveal any focal deficits. SKIN: No rashes. Assessment and plan -Abdominal pain: Etiology is not clear can be ruptured ovarian cyst or endometriosis, EXHIBITIONS AND COLLECTIONS MANAGER recommends repeat US in 6 weeks. Continue with present medications pain medications including Tylenol, tramadol, if needed morphine. -Leukocytosis reactive in nature no evidence of infection at this time will monitor, improved and normal today -Asymptomatic bacteriuria will not require any antibiotics at this time, discontinue ceftriaxone -Asthma without any acute exacerbation -Tachycardia secondary to pain -DVT prophylaxis: Ambulation Plan: Continue current medications Protonix 40mg IV bid GI consulted and pending. Gen surg and OBgyn following with no plans for surgical intervention Encouraged small frequent meals Encouraged increased activity as tolerated. Possible discharge in 24-48 hours The impression and plan of care has been dictated by Kita Leon, Nurse Practitioner as directed. Dr. Ever MD I have performed a history and examination and MDM of this patient, discussed the same with the dictator, and agree with the dictator's assessment and plan as written ,documented as a scribe. Based on total visit time, I have performed more than 50% of the visit. Objective - Vital Signs Vital signs: Vital Signs Temp 97.6 F 08/21/22 07:00 Pulse 69 08/21/22 07:00 Resp 14 08/21/22 07:00 BP 123/73 08/21/22 07:00 Pulse Ox 100 08/21/22 07:00 FiO2 Intake & Output 08/20/22 08/21/22 08/21/22 18:59 06:59 18:59 Weight 45.359 kg Other: Voiding Method Toilet # Voids 1 2 - Labs CBC & Chem 7: 08/21/22 05:36 08/21/22 05:36 Labs: Abnormal Lab Results - Last 24 Hours (Table) 08/21/22 08/21/22 Range/Units 05:36 05:36 RBC 3.60 L (4.10-5.20) X 10*6/uL Hgb 11.4 L (12.0-15.0) g/dL Hct 34.2 L (37.2-46.3) % MPV 12.4 H (9.5-12.2) fL Anion Gap 5.30 L (10.00-18.00) mmol/L BUN 8.3 L (9.0-27.0) mg/dL BUN/Creatinine Ratio 11.86 L (12.00-20.00) Ratio Calcium 8.3 L (8.7-10.3) mg/dL Total Protein 5.0 L (6.2-8.2) g/dL Albumin 3.2 L (3.8-4.9) g/dL Microbiology - Last 24 Hours (Table) 08/20/22 09:25 Urine Culture - Preliminary Urine,Voided
[2022-08-22] MEDS: NON FORMULARY DRUG (Ivabradine Hcl [Corlanor] 5 MG Tablet) PO SCH (06:26)
[2022-08-22 08:05] VITALS: BP 149/64; PULSE 81; RESP 20; TEMP 97.7
[2022-08-22] MEDS: SODIUM CHLORIDE 0.9% 1,000 ML IV SCH (08:13)
[2022-08-22] MEDS: MAGNESIUM OXIDE 400 MG TAB PO SCH (08:16)
[2022-08-22] MEDS: PANTOPRAZOLE 40 MG/10 ML VIAL IVP SCH (08:16)
[2022-08-22] MEDS: NICOTINE 21MG/24HR PATCH TRANSDERM SCH (08:16)
[2022-08-22] MEDS: clonazePAM 0.5 MG TAB PO PRN (08:34)
[2022-08-22] MEDS ORDERED: DICYCLOMINE 10 MG CAP PO PRN (10:00)
--- NOTE | 2022-08-22 10:58 | P.CONS ---
History of Present Illness - Reason for Consult Consult date: 08/22/22 Abdominal pain and dark stools Requesting physician: Kita Leon - Chief Complaint Abdominal pain - History of Present Illness This 32-year-old female who presented to the emergency department this past Sunday with complaints of severe abdominal pain associated with nausea and vomiting. The patient states she's had abdominal pain since 07/07/2022 off and on. States she has been hospitalized 3 times. She recently underwent a hysterectomy on 07/13/2022 and was told that she had endometriosis at that time. Continued having abdominal pain and was admitted to the hospital for possible abscess which since has resolved. Apparently patient reported that she had abdominal pain since she had anal intercourse on Sunday. However she states this pain has been going on intermittently again since June. She also states it is sharp it is mostly in her lower abdomen. She states she also has dark stools the other day, then green stools. She states that she goes back and forth between constipation and diarrhea. She has no appointment for colonoscopy with Dr. Hopson September 27. This admission she was seen by general surgery however they did not feel that there was any indication for surgical intervention. She had a CT of the abdomen and pelvis with reported findings of left ovarian cyst. Cyst is increased slightly compared to old exam. There is clearing of a 3 cm right-sided ovarian cyst compared to old exam. On admission patient was noted to have a WBC of 23, with a repeat yesterday of 9.45. She's been afebrile since admission. She currently states her pain is better. She can get up and ambulate. She does have pain with palpation. No further vomiting since Sunday. She does have some mild nausea. Review of Systems REVIEW OF SYSTEMS: CARDIOPULMONARY: No chest pain or shortness of breath. Gastrointestinal: Diffuse abdominal pain, greatest in the lower abdomen. States it's intermittent, sharp. Nausea and vomiting on admission none since. No hematemesis, coffee-ground emesis. No rectal bleeding, or melena. Reporting dark stool. GENITOURINARY: No dysuria or hematuria. MUSCULOSKELETAL: Reports normal range of motion SKIN: No rashes. No jaundice. ENDOCRINE: No chills, fevers. No excessive weight gain or loss. No polydipsia or polyuria. PSYCHIATRIC: Unremarkable. NEUROLOGY: No change in mental status. Denies dizziness, headache. ENT: Vision unremarkable. CONSTITUTIONAL: Reports decreased appetite, associated weight loss however unsure of how much. No fever, chills, night sweats. Past Medical History Past Medical History: Asthma Additional Past Medical History / Comment(s): Herpes Genitalis, kidney stones, tachycardia, bradycardia History of Any Multi-Drug Resistant Organisms: None Reported Past Surgical History: Hysterectomy, Pacemaker Additional Past Surgical History / Comment(s): tachycardia Past Anesthesia/Blood Transfusion Reactions: No Reported Reaction Type of Cardiac Device: Permanent Pacemaker Device Placement Date:: 2015 Past Psychological History: Anxiety, Bipolar, Depression Smoking Status: Current every day smoker Past Alcohol Use History: Occasional Past Drug Use History: None Reported - Past Family History Mother Family Medical History: No Reported History, Asthma, Cancer, COPD Additional Family Medical History / Comment(s): drug addict, bipolar, cervical cancer Father Family Medical History: Congestive Heart Failure (CHF), COPD Medications and Allergies Home Medications Medication Instructions Recorded Confirmed Type Ivabradine HCl [Corlanor] 5 mg PO BID 08/25/19 08/20/22 History clonazePAM [KlonoPIN] 0.5 mg PO Q8H PRN 07/10/22 08/20/22 History HYDROcodone/APAP 7.5-325MG [[place] 1 tab PO Q4-6H PRN 07/24/22 08/20/22 History 7.5-325] Ibuprofen [Motrin] 600 mg PO Q6H PRN 07/24/22 08/20/22 History Magnesium Oxide [Mag-Ox] 400 mg PO BID 07/24/22 08/20/22 History Nicotine 21Mg/24Hr Patch [Habitrol] 1 patch TRANSDERM DAILY PRN 07/24/22 08/20/22 History Simethicone [Gas-X] 125 mg PO DAILY PRN 07/24/22 08/20/22 History Allergies Allergy/AdvReac Type Severity Reaction Status Date / Time Beta-Blockers Allergy Dyspnea/Increased Verified 08/20/22 12:27 (Beta-Adrenergic Bloc Heart Rate/Fatigue vancomycin Allergy Itching Verified 08/20/22 12:27 albuterol AdvReac INCREASED Verified 08/20/22 12:27 HEART RATE oxycodone [From Percocet] AdvReac AGITATION Verified 08/20/22 12:27 varenicline [From Chantix] AdvReac AGITATION/A Verified 08/20/22 12:27 GGRESSION Physical Exam Vitals: Vital Signs Temp Pulse Resp BP Pulse Ox 08/22/22 06:24 68 123/75 08/22/22 03:49 98.1 F 67 16 116/76 98 08/21/22 20:57 98.1 F 64 16 123/76 98 08/21/22 13:43 98.3 F 71 14 120/73 99 Intake and Output 08/21/22 08/22/22 08/22/22 22:59 06:59 14:59 Intake Total 240 Balance 240 Intake: Oral 240 Other: Voiding Method Toilet Toilet # Voids 2 2 General appearance: The patient is alert, oriented, appears in no acute distress. HET: Head is normocephalic and atraumatic. Conjunctiva pink. Sclera anicteric. Neck: Supple without lymphadenopathy. Trachea midline. Heart: S1 S2. Regular rate and rhythm. Lungs: Clear to auscultation. Abdomen: Soft, diffuse tenderness, then, nondistended with bowel sounds. No guarding or rigidity. Skin: No rashes. No jaundice. Extremities: Normal skin color and turgor. No pedal edema. Neurological: No focal deficits. Alert and oriented x3. Results CBC & Chem 7: 08/21/22 05:36 08/21/22 05:36 Labs: Abnormal Lab Results - Last 24 Hours (Table) 08/21/22 08/21/22 Range/Units 05:36 05:36 RBC 3.60 L (4.10-5.20) X 10*6/uL Hgb 11.4 L (12.0-15.0) g/dL Hct 34.2 L (37.2-46.3) % MPV 12.4 H (9.5-12.2) fL Anion Gap 5.30 L (10.00-18.00) mmol/L BUN 8.3 L (9.0-27.0) mg/dL BUN/Creatinine Ratio 11.86 L (12.00-20.00) Ratio Calcium 8.3 L (8.7-10.3) mg/dL Total Protein 5.0 L (6.2-8.2) g/dL Albumin 3.2 L (3.8-4.9) g/dL Microbiology - Last 24 Hours (Table) 08/20/22 09:25 Urine Culture - Final Urine,Voided CT scan - abdomen: report reviewed (Left ovarian cyst, clearing of a 3 cm right sided ovarian cyst) Assessment and Plan (1) Abdominal pain Narrative/Plan: 32-year-old female with reported abdominal pain, sharp in intensity, intermittent since early to mid June. Patient underwent laparoscopic hysterectomy proximal to the 4-5 weeks ago and was told she also had endometriosis. States pain again is intermittent can last for 8 hours at a time, can be associated with nausea and vomiting. Has history of intermittent constipation/diarrhea. No previous workup with gastroenterology. Tentatively was scheduled for colonoscopy with Dr. Hopson on September 27. Unclear etiology at this time of abdominal pain. May be related to IBS. Gen. surgery has seen patient and feel there is no indication for any surgical intervention. EGD and colonoscopy offered to patient to be done while inpatient. Patient is requesting that she be discharged today and very adamant about this. Will schedule patient for outpatient EGD and colonoscopy, August 30. This was discussed with the patient. Will start Bentyl 10 mg as needed every 6 hours Current Visit: Yes Status: Acute Code(s): R10.9 - UNSPECIFIED ABDOMINAL PAIN SNOMED Code(s): 05142859 (2) History of robot-assisted laparoscopic hysterectomy Current Visit: Yes Status: Acute Code(s): Z90.710 - ACQUIRED ABSENCE OF BOTH CERVIX AND UTERUS SNOMED Code(s): 462616604 (3) Leukocytosis Narrative/Plan: Resolved Current Visit: Yes Status: Acute Code(s): D72.829 - ELEVATED WHITE BLOOD CELL COUNT, UNSPECIFIED SNOMED Code(s): 053892978 (4) Ovarian cyst Current Visit: Yes Status: Acute Code(s): N83.209 - UNSPECIFIED OVARIAN CYST, UNSPECIFIED SIDE SNOMED Code(s): 98466090 Plan: 1. Continue symptomatic and supportive care 2. Diabetes tolerated 3. Dicyclomine 10 mg every 6 hours as needed 4. Patient was offered EGD colonoscopy while she was inpatient, she is declining and requesting to be discharged. Appointment for EGD colonoscopy has been scheduled for August 30, 2022. Thank you for this consultation, patient cleared from gastroenterology for discharge. Dr. Shellie Hopson I agree with the dictator's note, documented as a scribe by Anuradha Pelayo.
[2022-08-22 14:34] VITALS: BMI 18.3
--- NOTE | 2022-08-23 15:22 | P.DS ---
Providers Date of admission: 08/20/22 07:02 Expected date of discharge: 08/22/22 Attending physician: Francisco Caballero Consults: 08/20/22 07:02 Consult Physician Routine Consulting Provider: Marifer Judd Consult Reason/Comments: known Do you want consulting provider notified?: Yes Consult Physician Routine Consulting Provider: Kirby Pizarro Consult Reason/Comments: abdominal pain Do you want consulting provider notified?: Yes 08/21/22 11:39 Consult Physician Urgent Consulting Provider: Leatha Hopson Consult Reason/Comments: abdominal pain, dark stools Do you want consulting provider notified?: Yes Primary care physician: Geoff Albert Hospital Course: Final diagnosis Abdominal pain, etiology unclear possibly secondary to ruptured ovarian cyst or endometriosis Leukocytosis, most likely reactive in nature with no evidence of infection at this time, improved Asymptomatic bacteriuria will not require antibiotics and did receive a dose of ceftriaxone Asthma without any acute exacerbation Tachycardia secondary to pain DVT prophylaxis Full code Discharge disposition Patient is being discharged in a stable condition with guarded prognosis to home. Patient will follow-up with Dr. Albert in the outpatient setting upon discharge. Patient is to also follow-up with GI Dr. Hopson as scheduled for outpatient EGD/colonoscopy. Patient will continue on pain management along with Protonix twice daily until GI follow-up. Total time taken is greater than 35 minutes. Hospital course This is a 32-year-old female who was recently admitted with abdominal pain and was being closely monitored. Gynecology along with GI and general surgery evaluated the patient and gynecology recommends outpatient ultrasound repeat in 6-8 weeks, surgery with no interventions planned at this time, and GI following and will plan for outpatient EGD/colonoscopy that is scheduled for next week. Patient continues to report abdominal pain although reports is improved from pr evious and will also continue with Protonix twice daily until GI follow-up. Patient encouraged to follow-up with primary care provider as well. Currently no reports of chest pain, shortness of breath, or palpitations. Patient is afebrile. No reports of nausea or vomiting and patient is tolerating diet. Patient will be discharged home today. Guarded prognosis. Physical exam: Gen: This is a 32-year-old female awake, alert and oriented 3, thin built HEENT: Head is atraumatic, normocephalic. Pupils equal, round. Sclerae is anicteric. NECK: Supple. No JVD. No lymphadenopathy. No thyromegaly. LUNGS: Clear to auscultation. No wheezes or rhonchi. No intercostal retractions. HEART: Regular rate and rhythm. No murmur. ABDOMEN: Soft. Bowel sounds are present. No masses. No tenderness. EXTREMITIES: No pedal edema. No calf tenderness. NEUROLOGICAL: Patient is awake, alert and oriented x3. Cranial nerves 2 through 12 are grossly intact. Please refer to medication reconciliation sheet for a list of medications. The impression and plan of care has been dictated by Kita Leon, Nurse Practitioner as directed. Dr. Ever MD I have performed a history and examination and MDM of this patient, discussed the same with the dictator, and agree with the dictator's assessment and plan as written ,documented as a scribe. Based on total visit time, I have performed more than 50% of the visit. Patient Condition at Discharge: Fair Plan - Discharge Summary New Discharge Prescriptions: New Dicyclomine [Bentyl] 10 mg PO QID PRN #30 cap PRN Reason: Dyspepsia Pantoprazole Sodium [Protonix] 40 mg PO BID 15 Days #30 tab HYDROcodone/APAP 7.5-325MG [[place] 7.5-325] 1 each PO Q6H PRN #6 tab PRN Reason: Pain Acetaminophen Tab [Tylenol] 650 mg PO Q6HR PRN tab PRN Reason: Fever And/ Or Pain traMADol HCl [Ultram] 50 mg PO TID 3 Days #12 tab Continue Ivabradine HCl [Corlanor] 5 mg PO BID Magnesium Oxide [Mag-Ox] 400 mg PO BID Simethicone [Gas-X] 125 mg PO DAILY PRN PRN Reason: Indigestion Nicotine 21Mg/24Hr Patch [Habitrol] 1 patch TRANSDERM DAILY PRN PRN Reason: craving clonazePAM [KlonoPIN] 0.5 mg PO Q8H PRN PRN Reason: Anxiety Discontinued HYDROcodone/APAP 7.5-325MG [[place] 7.5-325] 1 tab PO Q4-6H PRN PRN Reason: Pain Ibuprofen [Motrin] 600 mg PO Q6H PRN PRN Reason: Mild Discomfort Discharge Medication List Ivabradine HCl [Corlanor] 5 mg PO BID 08/25/19 [History] clonazePAM [KlonoPIN] 0.5 mg PO Q8H PRN 07/10/22 [History] Magnesium Oxide [Mag-Ox] 400 mg PO BID 07/24/22 [History] Nicotine 21Mg/24Hr Patch [Habitrol] 1 patch TRANSDERM DAILY PRN 07/24/22 [History] Simethicone [Gas-X] 125 mg PO DAILY PRN 07/24/22 [History] Acetaminophen Tab [Tylenol] 650 mg PO Q6HR PRN tab 08/22/22 [Rx] Dicyclomine [Bentyl] 10 mg PO QID PRN #30 cap 08/22/22 [Rx] HYDROcodone/APAP 7.5-325MG [[place] 7.5-325] 1 each PO Q6H PRN #6 tab 08/22/22 [Rx] Pantoprazole Sodium [Protonix] 40 mg PO BID 15 Days #30 tab 08/22/22 [Rx] traMADol HCl [Ultram] 50 mg PO TID 3 Days #12 tab 08/22/22 [Rx] Follow up Appointment(s)/Referral(s): Geoff Albert III, MD [Primary Care Provider] - 1-2 days Leatha Hopson MD [STAFF PHYSICIAN] - 08/30/22 (EGD/Colonoscopy [facility]. Office will call you and send prep instructions) Patient Instructions/Handouts: Abdominal Pain (GEN) Activity/Diet/Wound Care/Special Instructions: Activity Limited until follow-up Discharge Disposition: HOME SELF-CARE
== END 2022-08-22 14:35 | disposition home or self-care (01) ==
LOC: EC 03:32 → 6NMEDSUR 07:02
PROVIDERS: ADMIT Hospitalist; ATTEND Hospitalist
DX: R10.84 Generalized abdominal pain (principal); D72.829 Elevated white blood cell count, unspecified; R11.2 Nausea with vomiting, unspecified; R82.71 Bacteriuria; N83.202 Unspecified ovarian cyst, left side; N83.201 Unspecified ovarian cyst, right side; N80.9 Endometriosis, unspecified; K59.00 Constipation, unspecified; R19.7 Diarrhea, unspecified; I49.5 Sick sinus syndrome; J45.909 Unspecified asthma, uncomplicated; A60.09 Herpesviral infection of other urogenital tract; F31.9 Bipolar disorder, unspecified; F41.9 Anxiety disorder, unspecified; F17.200 Nicotine dependence, unspecified, uncomplicated; Z20.822 Contact with and (suspected) exposure to COVID-19; Z79.899 Other long term (current) drug therapy; Z88.1 Allergy status to other antibiotic agents; Z88.5 Allergy status to narcotic agent; Z88.8 Allergy status to other drugs, medicaments and biological substances; Z90.710 Acquired absence of both cervix and uterus; Z87.442 Personal history of urinary calculi; Z95.0 Presence of cardiac pacemaker; Z80.49 Family history of malignant neoplasm of other genital organs; Z81.3 Family history of other psychoactive substance abuse and dependence; Z82.5 Family history of asthma and other chronic lower respiratory diseases; Z81.8 Family history of other mental and behavioral disorders; Z82.49 Family history of ischemic heart disease and other diseases of the circulatory system
CPT/HCPCS: 96376 ×2; 96361 ×3; 96367 ×2; 96365; 96366; 96375; 99285; 36415; 80053 ×2; 82150; 83605; 83690; 83735; 84100; 85025 ×2; 85610; 85730; 81001; 87086; 87502; 87635; 71045; 74177; G0378 ×3; S4990 ×2; J2270 ×2; J0500; J0780; J0696; J0295; J0131; J1885; C9113 ×3; Q9967

== ENCOUNTER 2022-08-30 06:05 | Day surgery (SDC) | payer MEDICARE, OTHER ==
[~2022-08-30 06:05] MED LIST: LIDOCAINE 1% (10MG/ML) FOR IV START INTRADERMA PRN
[2022-08-30] MEDS: LACTATED RINGERS 1,000 ML IV SCH ×2 (06:28→06:50)
[2022-08-30 06:50] VITALS: TEMP 97.3
[2022-08-30] MEDS ORDERED: ONDANSETRON 4 MG/2 ML VIAL IVP PRN (07:00)
[2022-08-30] MEDS ORDERED: PROPOFOL 10 MG/ML 20 ML VIAL IV ONE (07:02)
--- NOTE | 2022-08-30 07:24 | P.PCN ---
Date of Procedure: 08/30/22 Procedure(s) Performed: Brief history: Patient is a pleasant 32-year-old white female scheduled for an elective upper endoscopy as well as colonoscopy as a part of evaluation of abdominal pain/nausea vomiting and change in bowel habits for the last 2 months duration. Procedure performed: Esophagogastroduodenoscopy with biopsy Colonoscopy with biopsy Preoperative diagnosis: Abdominal pain/nausea vomiting Alternating diarrhea and constipation Anesthesia: MAC Procedure: After informed consent was obtained from the patient was brought into the endoscopy unit and IV sedation was administered by anesthesia under continuous monitoring. Initially upper endoscopy was done. The Olympus GF 160 video en doscope was inserted inserted into the mouth and esophagus intubated without any difficulty and was gradually advanced into the stomach and duodenum and carefully examined. The bulb and second part of the duodenum appeared normal. Abscesses were done from the duodenum to rule out celiac disease The scope was then withdrawn into the stomach adequately insufflated with air and upon careful examination the antrum had mild gastritis and biopsies were done from this area. The body, cardia and fundus appeared normal. The scope was then withdrawn into the esophagus. The GE junction was located at 40 cm to the incisors. It appeared regular with no erythema erosions or ulcerations. Rest of the esophagus appeared normal. Patient tolerated the procedure well. At this time the patient continued to remain sedation. Initial digital rectal examination was normal. Olympus CF 160 video colonoscope was then inserted into the rectum and gradually advanced to the cecum without any difficulty. Careful examination was performed as the scope was gradually being withdrawn. Terminal ileum was intubated and 20 cm visualized and appeared normal. Biopsies were done from this area. The prep was excellent. The cecum, ascending colon, transverse colon, descending colon, sigmoid colon and rectum appeared normal. Random biopsies were also done from ascending colon to rule out microscopic/col lagenous colitis. Retroflexion was performed in the rectum and no lesions were noted. Patient tolerated the procedure well. Impression: 1. Upper endoscopy revealed minimal antral gastritis but no evidence of esophagitis or peptic ulcer disease 2. Colonoscopy was within normal limits with no evidence of colorectal neoplasia Recommendations: Findings of this examination were discussed with the patient as well as her family. She was advised to follow with the biopsy results. She'll continue her current medications and follow antireflux measures. She'll be seen in office in 2 weeks.
[2022-08-30 08:05] VITALS: BP 136/76; PULSE 65; RESP 18
== END 2022-08-30 08:23 | disposition home or self-care (01) ==
LOC: ORWHC2ENDO 06:05
PROVIDERS: ATTEND Internal Medicine Gastroenterology
DX: K29.50 Unspecified chronic gastritis without bleeding (principal); R19.7 Diarrhea, unspecified; K59.00 Constipation, unspecified; R10.9 Unspecified abdominal pain; F17.210 Nicotine dependence, cigarettes, uncomplicated
CPT/HCPCS: 88305; 45380; 43239; J2704

== ENCOUNTER 2023-02-14 09:53 | Emergency (ER) | payer MEDICARE, OTHER ==
[2023-02-14] MEDS ORDERED: SODIUM CHLORIDE 0.9% 1,000 ML IV STA (10:18)
[2023-02-14] MEDS ORDERED: ONDANSETRON 4 MG/2 ML VIAL IVP STA ×2 (10:34→12:50)
[2023-02-14 10:50] LABS: ALT 41 U/L (4-34); AST 73 U/L (14-36); Acetaminophen <10.0 ug/mL; African American GFR (CKD) >90 (>60 ml/min/1.73 sqM); Albumin 5.3 g/dL (3.5-5.0); Alcohol <10 mg/dL; Alkaline Phosphatase 99 U/L (38-126); Anion Gap 16 mmol/L; Blood Urea Nitrogen 18 mg/dL (7-17); Carbon Dioxide 20 mmol/L (22-30); Chloride 104 mmol/L (98-107); Glucose 127 mg/dL (74-99); Non-African American GFR(CKD) >90 (>60 ml/min/1.73 sqM); Salicylate <1.0 mg/dL; Sodium 140 mmol/L (137-145); Total Bilirubin 1.2 mg/dL (0.2-1.3); Total Protein 8.9 g/dL (6.3-8.2)
[2023-02-14 10:52] LABS: Potassium 5.7 mmol/L (3.5-5.1)
[2023-02-14 10:53] LABS: Basophils % (A) 0 %; Eosinophils % (A) 0 %; HCT 51.3 % (34.0-46.0); HGB 16.5 gm/dL (11.4-16.0); Lymphocytes # (A) 1.3 k/uL (1.0-4.8); Lymphocytes % (A) 6 %; MCH 31.5 pg (25.0-35.0); MCHC 32.1 g/dL (31.0-37.0); MCV 98.3 fL (80.0-100.0); Mean Platelet Volume 8.8; Monocytes # (A) 0.9 k/uL (0-1.0); Monocytes % (A) 4 %; Neutrophils # (A) 19.6 k/uL (1.3-7.7); Neutrophils % (A) 89 %; Platelet Count 261 k/uL (150-450); RBC 5.22 m/uL (3.80-5.40); RDW 13.4 % (11.5-15.5); WBC 21.9 k/uL (3.8-10.6)
[2023-02-14 10:57] LABS: Appearance,Urine Clear (Clear); Bilirubin,Urine Negative (Negative); Blood,Urine Negative (Negative); Color,Urine Yellow; Glucose,Urine (UA) 4+ (Negative); Ketones,Urine Negative (Negative); Leukocyte Esterase,Urine Negative (Negative); Nitrite,Urine Negative (Negative); PH, Urine 5.5 (5.0-8.0); Protein,Urine Trace (Negative); Specific Gravity,Urine 1.008 (1.001-1.035); Urobilinogen,Urine <2.0 mg/dL (<2.0)
--- NOTE | 2023-02-14 10:57 | ED ---
General Adult HPI - General Chief complaint: Overdose Stated complaint: Poss Drugged Time Seen by Provider: 02/14/23 10:05 Source: patient, RN notes reviewed, old records reviewed Mode of arrival: ambulatory Limitations: no limitations - History of Present Illness Initial comments: 32-year-old female with suspected overdose. History is obtained from the patient and her friend who is at bedside. Apparently last night around 10 PM she began drinking and admits to using some cocaine. Uncertain if this was laced with any other drugs. She was found by her friend this morning. Patient does not remember anything from 10 PM on. She had some bleeding to her lips. She does not remember any specific trauma. - Related Data Home Medications Medication Instructions Recorded Confirmed Ivabradine HCl [Corlanor] 5 mg PO BID 08/25/19 08/30/22 clonazePAM [KlonoPIN] 0.5 mg PO Q8H PRN 07/10/22 08/30/22 Magnesium Oxide [Mag-Ox] 400 mg PO BID 07/24/22 08/30/22 Previous Rx's Medication Instructions Recorded Dicyclomine [Bentyl] 10 mg PO QID PRN #30 cap 08/22/22 HYDROcodone/APAP 7.5-325MG [[place] 1 each PO Q6H PRN #6 tab 08/22/22 7.5-325] Pantoprazole Sodium [Protonix] 40 mg PO BID 15 Days #30 tab 08/22/22 traMADol HCl [Ultram] 50 mg PO TID 3 Days #12 tab 08/22/22 Allergies Allergy/AdvReac Type Severity Reaction Status Date / Time Beta-Blockers Allergy Dyspnea/Increased Verified 02/14/23 10:00 (Beta-Adrenergic Bloc Heart Rate/Fatigue vancomycin Allergy Itching Verified 02/14/23 10:00 albuterol AdvReac INCREASED Verified 02/14/23 10:00 HEART RATE oxycodone [From Percocet] AdvReac AGITATION Verified 02/14/23 10:00 varenicline [From Chantix] AdvReac AGITATION/A Verified 02/14/23 10:00 GGRESSION Review of Systems ROS Statement: Those systems with pertinent positive or pertinent negative responses have been documented in the HPI. ROS Other: All systems not noted in ROS Statement are negative. Past Medical History Past Medical History: Asthma Additional Past Medical History / Comment(s): Herpes Genitalis, kidney stones, tachycardia, bradycardia sick sinus syndrome, endometriosis, cysts on overies and kidneys History of Any Multi-Drug Resistant Organisms: None Reported Past Surgical History: Hysterectomy, Pacemaker Additional Past Surgical History / Comment(s): tachycardia Past Anesthesia/Blood Transfusion Reactions: No Reported Reaction, Motion Sic kness Type of Cardiac Device: Permanent Pacemaker Device Placement Date:: 2015 Past Psychological History: Anxiety, Bipolar, Depression Smoking Status: Current every day smoker Past Alcohol Use History: None Reported Past Drug Use History: None Reported - Past Family History Mother Family Medical History: No Reported History, Asthma, Cancer, COPD Additional Family Medical History / Comment(s): drug addict, bipolar, cervical cancer Father Family Medical History: Congestive Heart Failure (CHF), COPD General Exam Limitations: no limitations General appearance: alert, appears intoxicated Head exam: Present: normocephalic, other (Contusion and abrasion to the upper and lower lips.) Eye exam: Present: normal appearance, PERRL Neck exam: Present: normal inspection. Absent: tenderness, meningismus Respiratory exam: Present: normal lung sounds bilaterally. Absent: respiratory distress Cardiovascular Exam: Present: normal rhythm, tachycardia GI/Abdominal exam: Present: soft. Absent: distended, tenderness, guarding, rebound Extremities exam: Present: normal inspection, normal capillary refill. Absent: pedal edema Neurological exam: Present: alert. Absent: motor sensory deficit Skin exam: Present: warm, dry Course Vital Signs 02/14/23 09:56 Temperature 98.2 F Pulse Rate 108 H Respiratory 22 Rate Blood Pressure 119/75 O2 Sat by Pulse 96 Oximetry - Reevaluation(s) Reevaluation #1: 02/14/23 13:34 PD was available emergency department the patient declined report at this time. EKG Findings - EKG Comments: EKG Findings:: EKG: Sinus rhythm left atrial enlargement rate of 99, OH interval 141, QRS duration 86, QTC 400 Medical Decision Making - Medical Decision Making Was pt. sent in by a medical professional or institution (, PA, RETURNER, urgent care, hospital, or custodial...) When possible be specific @ -[No] Did you speak to anyone other than the patient for history (EMS, parent, family, police, friend...)? What history was obtained from this source @ -Patient's friend Did you review nursing and triage notes (agree or disagree)? Why? @ -[I reviewed and agree with nursing and triage notes] Were old charts reviewed (outside hosp., previous admission, EMS record, old EKG, old radiological studies, urgent care reports/EKG's, custodial records)? Report findings @ -[No old charts were reviewed] Differential Diagnosis (chest pain, altered mental status, abdominal pain women, abdominal pain men, vaginal bleeding, weakness, fever, dyspnea, syncope, headache, dizziness, GI bleed, back pain, seizure, CVA, palpatations, mental health, musculoskeletal)? @ -Alcohol intoxication, accidental overdose, intentional poisoning EKG interpreted by me (3pts min.). @ -[As above] X-rays interpreted by me (1pt min.). @ -[None done] CT interpreted by me (1pt min.). @ -Negative for intracranial hemorrhage U/S interpreted by me (1pt. min.). @ -[None done] What testing was considered but not performed or refused? (CT, X-rays, U/S, labs)? Why? @ -[None] What meds were considered but not given or refused? Why? @ -[None] Did you discuss the management of the patient with other professionals (professionals i.e. , PA, RETURNER, lab, RT, psych nurse, medical social worker, hand dry cleaner, teacher, first aid officer, machine adjuster leader case trim)? Give summary @ -[No] Was smoking cessation discussed for >3mins.? @ -[No] Was critical care preformed (if so, how long)? @ -[No] Were there social determinants of health that impacted care today? How? (Homelessness, low income, unemployed, alcoholism, drug addiction, transportation, low edu. Level, literacy, decrease access to med. care, longterm, rehab)? @ -Alcoholism and drug abuse Was there de-escalation of care discussed even if they declined (Discuss DNR or withdrawal of care, Hospice)? DNR status @ -[No] What co-morbidities impacted this encounter? (DM, HTN, Smoking, COPD, CAD, Cancer, CVA, ARF, Chemo, Hep., AIDS, mental health diagnosis, sleep apnea, morb id obesity)? @ -Pacemaker Was patient admitted / discharged? Hospital course, mention meds given and route, prescriptions, significant lab abnormalities, going to OR and other pertinent info. @ -32-year-old who had presented with possible overdose versus intentional poisoning. Patient is able to add additional history after several hours in the emergency department. She admits to using what she thought was cocaine but immediately began to feel drugged and disoriented. She does not remember anything after this. She was uncertain if this was laced with any other drug or may have been an entirely different drugs altogether. He had some contusion to her lips on the right side. Laboratory testing reveals leukocytosis and elevated hemoglobin, mild transaminitis. Patient given IV fluid and observed in the emergency department. Urine drug screen is only positive for marijuana. Patient will be speaking with local PD in the emergency department and she will leave the emergency department to go directly [facility]. Report has been contacted and are aware. Undiagnosed new problem with uncertain prognosis? @ -[No] Drug Therapy requiring intensive monitoring for toxicity (Heparin, Nitro, Insulin, Cardizem)? @ -[No] Were any procedures done? @ -[No] Diagnosis/symptom? @ -Overdose Acute, or Chronic, or Acute on Chronic? @ -Acute Uncomplicated (without systemic symptoms) or Complicated (systemic symptoms)? @ -Complicated Side effects of treatment? @ -[No] Exacerbation, Progression, or Severe Exacerbation? @ -[No] Poses a threat to life or bodily function? How? (Chest pain, [place], [place], pneumonia, PE, COPD, DKA, ARF, appy, cholecystitis, CVA, Diverticulitis, Homicidal, Suicidal, threat to staff... and all critical care pts) @ -Yes, overdose - Lab Data Result diagrams: 02/14/23 10:27 02/14/23 10:27 Lab Results 02/14/23 02/14/23 02/14/23 Range/Units 10:27 10: 10:27 WBC 21.9 H (3.8-10.6) k/uL RBC 5.22 (3.80-5.40) m/uL Hgb 16.5 H (11.4-16.0) gm/dL Hct 51.3 H (34.0-46.0) % MCV 98.3 (80.0-100.0) fL MCH 31.5 (25.0-35.0) pg MCHC 32.1 (31.0-37.0) g/dL RDW 13.4 (11.5-15.5) % Plt Count 261 (150-450) k/uL MPV 8.8 Neutrophils % 89 % Lymphocytes % 6 % Monocytes % 4 % Eosinophils % 0 % Basophils % 0 % Neutrophils # 19.6 H (1.3-7.7) k/uL Lymphocytes # 1.3 (1.0-4.8) k/uL Monocytes # 0.9 (0-1.0) k/uL Eosinophils # 0.0 (0-0.7) k/uL Basophils # 0.0 (0-0.2) k/uL Sodium (137-145) mmol/L Potassium (3.5-5.1) mmol/L Chloride (98-107) mmol/L Carbon Dioxide (22-30) mmol/L Anion Gap mmol/L BUN (7-17) mg/dL Creatinine (0.52-1.04) mg/dL Est GFR (CKD-EPI)AfAm (>60 ml/min/1.73 sqM) Est GFR (CKD-EPI)NonAf (>60 ml/min/1.73 sqM) Glucose (74-99) mg/dL Calcium (8.4-10.2) mg/dL Total Bilirubin (0.2-1.3) mg/dL AST (14-36) U/L ALT (4-34) U/L Alkaline Phosphatase (38-126) U/L Total Protein (6.3-8.2) g/dL Albumin (3.5-5.0) g/dL Urine Color Yellow Urine Appearance Clear (Clear) Urine pH 5.5 (5.0-8.0) Ur Specific [place] 1.008 (1.001-1.035) Urine Protein Trace H (Negative) Urine Glucose (UA) 4+ H (Negative) Urine Ketones Negative (Negative) Urine Blood Negative (Negative) Urine Nitrite Negative (Negative) Urine Bilirubin Negative (Negative) Urine Urobilinogen <2.0 (<2.0) mg/dL Ur Leukocyte Esterase Negative (Negative) Urine HCG, Qual Not Detected (Not Detectd) Salicylates mg/dL Urine Opiates Screen Not Detected (NotDetected) Ur Oxycodone Screen Not Detected (NotDetected) Urine Methadone Screen Not Detected (NotDetected) Ur Propoxyphene Screen Not Detected (NotDetected) Acetaminophen ug/mL Ur Barbiturates Screen Not Detected (NotDetected) U Tricyclic Antidepress Not Detected (NotDetected) Ur Phencyclidine Scrn Not Detected (NotDetected) Ur Amphetamines Screen Not Detected (NotDetected) U Methamphetamines Scrn Not Detected (NotDetected) U Benzodiazepines Scrn Not Detected (NotDetected) Urine Cocaine Screen Not Detected (NotDetected) U Marijuana (THC) Screen Detected H (NotDetected) Serum Alcohol mg/dL 02/14/23 Range/Units 10:27 WBC (3.8-10.6) k/uL RBC (3.80-5.40) m/uL Hgb (11.4-16.0) gm/dL Hct (34.0-46.0) % MCV (80.0-100.0) fL MCH (25.0-35.0) pg MCHC (31.0-37.0) g/dL RDW (11.5-15.5) % Plt Count (150-450) k/uL MPV Neutrophils % % Lymphocytes % % Monocytes % % Eosinophils % % Basophils % % Neutrophils # (1.3-7.7) k/uL Lymphocytes # (1.0-4.8) k/uL Monocytes # (0-1.0) k/uL Eosinophils # (0-0.7) k/uL Basophils # (0-0.2) k/uL Sodium 140 (137-145) mmol/L Potassium 5.7 H (3.5-5.1) mmol/L Chloride 104 (98-107) mmol/L Carbon Dioxide 20 L (22-30) mmol/L Anion Gap 16 mmol/L BUN 18 H (7-17) mg/dL Creatinine 0.79 (0.52-1.04) mg/dL Est GFR (CKD-EPI)AfAm >90 (>60 ml/min/1.73 sqM) Est GFR (CKD-EPI)NonAf >90 (>60 ml/min/1.73 sqM) Glucose 127 H (74-99) mg/dL Calcium 9.0 (8.4-10.2) mg/dL Total Bilirubin 1.2 (0.2-1.3) mg/dL AST 73 H (14-36) U/L ALT 41 H (4-34) U/L Alkaline Phosphatase 99 (38-126) U/L Total Protein 8.9 H (6.3-8.2) g/dL Albumin 5.3 H (3.5-5.0) g/dL Urine Color Urine Appearance (Clear) Urine pH (5.0-8.0) Ur Specific [place] (1.001-1.035) Urine Protein (Negative) Urine Glucose (UA) (Negative) Urine Ketones (Negative) Urine Blood (Negative) Urine Nitrite (Negative) Urine Bilirubin (Negative) Urine Urobilinogen (<2.0) mg/dL Ur Leukocyte Esterase (Negative) Urine HCG, Qual (Not Detectd) Salicylates <1.0 mg/dL Urine Opiates Screen (NotDetected) Ur Oxycodone Screen (NotDetected) Urine Methadone Screen (NotDetected) Ur Propoxyphene Screen (NotDetected) Acetaminophen <10.0 ug/mL Ur Barbiturates Screen (NotDetected) U Tricyclic Antidepress (NotDetected) Ur Phencyclidine Scrn (NotDetected) Ur Amphetamines Screen (NotDetected) U Methamphetamines Scrn (NotDetected) U Benzodiazepines Scrn (NotDetected) Urine Cocaine Screen (NotDetected) U Marijuana (THC) Screen (NotDetected) Serum Alcohol <10 mg/dL Disposition Clinical Impression: Drug overdose Disposition: HOME SELF-CARE Condition: Fair Instructions (If sedation given, give patient instructions): Adult Overdose (ED) Additional Instructions: Please follow up immediately with [facility]. Is patient prescribed a controlled substance at d/c from ED?: No Referrals: Geoff Albert III, MD [Primary Care Provider] - 1-2 days Time of Disposition: 13:35
[2023-02-14 11:22] LABS: Cocaine Screen,Urine Not Detected (NotDetected); Phencyclidine Screen,Urine Not Detected (NotDetected); Urn Cannabinoid Scrn Detected (NotDetected)
[2023-02-14 11:23] LABS: Amphetamine Screen,Urine Not Detected (NotDetected); Barbiturate Screen,Urine Not Detected (NotDetected); Benzodiazepines Screen,Urine Not Detected (NotDetected); Methadone Screen, Urine Not Detected (NotDetected); Opiate Screen,Urine Not Detected (NotDetected); Oxycodone Screen, Urine Not Detected (NotDetected); Tricyclic Antidepressant,Urine Not Detected (NotDetected)
--- NOTE | 2023-02-14 11:27 | CT ---
EXAMINATION TYPE: CT brain wo con DATE OF EXAM: 02/14/2023 COMPARISON: Prior CT September 01, 2011 HISTORY: altered mental status CT DLP: 996 mGycm. Automated Exposure Control for Dose Reduction was Utilized. TECHNIQUE: CT scan of the head is performed without contrast. FINDINGS: There is no acute intracranial hemorrhage, mass effect, or midline shift identified. The ventricles and sulci are within normal limits in size. Tong-white matter differentiation is maintain ed. Bilateral lens deviation on current study. The visualized paranasal sinuses are clear. IMPRESSION: No acute intracranial hemorrhage or midline shift is seen. Bilateral lens deviation, cor relate for strabismus.
[2023-02-14 15:53] VITALS: BP 125/84; PULSE 92; RESP 16; TEMP 98.1
== END 2023-02-14 14:35 | disposition home or self-care (01) ==
LOC: EC 09:53
DX: T40.5X1A Poisoning by cocaine, accidental (unintentional), initial encounter (principal); J45.909 Unspecified asthma, uncomplicated; F41.9 Anxiety disorder, unspecified; F31.9 Bipolar disorder, unspecified; F17.200 Nicotine dependence, unspecified, uncomplicated; Z88.5 Allergy status to narcotic agent; Z88.8 Allergy status to other drugs, medicaments and biological substances
CPT/HCPCS: 36415; 93005; 80053; 85025; 81003; 81025; 80306; 80143; 80179; 70450; 99284; 96374; 96376; 96361 ×2; G0480; J2405; 80320

== ENCOUNTER → 2023-11-27 | Outpatient (CLI) | payer MEDICARE, OTHER ==
[2023-11-27 15:49] LABS: ALT 16 U/L (8-44); AST 16 U/L (13-35); Albumin 4.8 g/dL (3.8-4.9); Albumin/Globulin Ratio 2.09 Ratio (1.60-3.17); Alkaline Phosphatase 75 U/L (41-126); Blood Urea Nitrogen 17.1 mg/dL (9.0-27.0); Calcium 10.2 mg/dL (8.7-10.3); Carbon Dioxide 25.2 mmol/L (21.6-31.8); Chloride 102 mmol/L (96-109); Chol/HDL Ratio 1.94 Ratio; Globulin 2.3 g/dL (1.6-3.3); Glucose 90 mg/dL (70-110); LDL Cholesterol,Calculated 77.1 mg/dL (0.0-131.0); Magnesium 1.9 mg/dL (1.5-2.4); Potassium 4.8 mmol/L (3.5-5.5); Sodium 139 mmol/L (135-145); Total Bilirubin 0.6 mg/dL (0.3-1.2); Total Protein 7.1 g/dL (6.2-8.2)
== END | disposition home or self-care (01) ==
LOC: LABWHC1 10:31
PROVIDERS: ATTEND Internal Medicine Clinical Cardiac Electrophysiology
DX: I49.5 Sick sinus syndrome (principal); I47.11 Inappropriate sinus tachycardia, so stated; R07.9 Chest pain, unspecified
CPT/HCPCS: 36415; 80053; 80061; 83735; 84443

== ENCOUNTER → 2024-10-23 | Outpatient (CLI) | payer MEDICARE, OTHER ==
--- NOTE | 2024-10-23 19:10 | XR ---
EXAMINATION TYPE: XR KUB DATE OF EXAM: 10/23/2024 5:14 PM COMPARISON: None. CLINICAL INDICATION: Female, 34 years old with history of N20.0, TECHNIQUE: XR KUB view(s) obtained. FINDINGS: There is a normal bowel gas pattern. Psoas margins are normal. No organomegaly is present. No suspicious calcifications are evident IMPRESSION: 1. Unremarkable [facility], , 10/23/2024 7:08 PM
== END | disposition home or self-care (01) ==
LOC: RADXRMAIN 16:58
PROVIDERS: ATTEND Urology
DX: N20.0 Calculus of kidney (principal)
CPT/HCPCS: 74018